=== PATIENT | female | born 1970 | race Caucasian/White ===

== ENCOUNTER 2018-03-12 10:29 | Emergency (ER) | payer OTHER ==
[2018-03-12 11:59] LABS: Absolute Lymphocytes (CBC) 1.7 K/uL (0.7-4.9); Absolute Neutrophil 17.1 K/uL (1.8-8.0); Basophils % 0.6 % (0-1.3); Hematocrit 40.6 % (36.0-45.0); Lymphocytes % 8.6 % (15.3-44.8); MCH 29.8 pg (27.0-35.0); MCV 87.1 fL (80-100); Monocytes % 4.9 % (3.3-12.3); RBC Red Blood Cell Count 4.66 M/uL (3.86-4.86)
[2018-03-12] MEDS ORDERED: NA CHLORIDE 0.9% 1,000 ML ONE (12:12)
[2018-03-12] MEDS ORDERED: MORPHINE 4 MG/ML SYR ONE (12:12)
[2018-03-12] MEDS ORDERED: ONDANSETRON 4 MG/2 ML VIAL ONE (12:12)
[2018-03-12 12:17] LABS: BUN Blood Urea Nitrogen 9 mg/dL (7-18); Bicarbonate 27 mmol/L (21-32); Glucose Level 95 mg/dL (74-106); Potassium 4.1 mmol/L (3.5-5.1); Sodium Level 138 mmol/L (136-145); Troponin (Emerg Dept Use Only) < 0.02 ng/mL (0.0-0.045)
[2018-03-12] MEDS ORDERED: CLINDAMYCIN 600MG/D5W 600 MG/50 ML BAG IV ONE (12:27)
[2018-03-12 12:31] LABS: Blood Morphology Comment NOT SEEN (NOT SEEN); Platelet Estimate INCR
[2018-03-12 12:41] LABS: Protime INR 1.06
--- NOTE | 2018-03-12 12:48 | RAD REPORT ---
EXAM DESCRIPTION: CT - Soft Tissue Neck W/Contr - 03/12/2018 12:34 pm CLINICAL HISTORY: Neck pain and neck swelling COMPARISON: None. TECHNIQUE: Computed axial tomography of the neck was obtained. 50 cc Isovue-300 administered intrave nously. Coronal and sagittal reconstruction was performed All CT scans are performed using dose optimization technique as appropriate and may include automated exposure control or mA/KV adjustment according to patient size. FINDINGS: The right tonsil is enlarged. Stranding is present within the right parapharyngeal fat. The oropharynx is mildly deviated towards the left. Remainder of the airway is unremarkable Mild bilateral lymphadenopathy is seen. The parotid, submandibular and thyroid glands demonstrate no significant abnormality. A 3 millimeter nodule within the right lobe of thyroid gland likely is benign. IMPRESSION: Right tonsillitis Bilateral neck lymphadenopathy probably is reactive in nature. Followup CT in 3 months should be obta ined to assess stability/resolution of the lymph nodes
[2018-03-12] MEDS ORDERED: LIDOCAINE VISCOUS 2% SOLN 15 ML UDC ONE (14:17)
[2018-03-12] MEDS ORDERED: MAGNE/ALUM HYDROXD 30 ML UCUP ONE (14:17)
[2018-03-12 14:27] LABS: Urine Bacteria NONE SEEN /HPF (<20); Urine RBC <5 /HPF (NONE SEEN)
[2018-03-12 14:28] LABS: Urine Culture Reflex Order NOT NEEDED; Urine Mucus LIGHT /HPF (NONE SEEN); Urine Yeast PRESENT (NONE SEEN)
--- NOTE | 2018-03-12 14:51 | EDPHYS ---
Physician Documentation [facility] Name: Nafisa Qiu Age: 47 yrs Sex: Female : 1970 Arrival Date: 03/12/2018 Time: 10:34 Bed 14 Private MD: Jung David T ED Physician Steffen Bateman HPI: 03/12 11:08 This 47 yrs old Female presents to ER via Ambulatory with complaints of Sore ma2 Throat, Fever. 11:08 The patient presents with sore throat. Onset: The symptoms/episode began/occurred ma2 gradually. Severity of symptoms: At their worst the symptoms were severe. Associated signs and symptoms: Pertinent positives: diarrhea, dysphagia, Pertinent negatives chest pain, chills, diarrhea, dysphagia. The patient has not experienced similar symptoms in the past. had strep pharyngitis last week almost completed keflex here with gradaly worsen sore throat that is more localized to right side.. with fever and neck pain . 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 - Social history:: Smoking status: Patient uses tobacco products, smokes one-half pack cigarettes per day, Patient/guardian denies using alcohol, street drugs, The patient lives with family. - Ebola Screening: : No symptoms or risks identified at this time. - Family history:: not pertinent. - Hospitalizations: : No recent hospitalization is reported. ROS: 11:08 Eyes: Negative for injury, pain, redness, and discharge, Neck: Negative for injury, ma2 pain, and swelling, Cardiovascular: Negative for chest pain, palpitations, and edema, Respiratory: Negative for shortness of breath, cough, wheezing, and pleuritic chest pain, Abdomen/GI: Negative for abdominal pain, nausea, diarrhea, and constipation, Neuro: Negative for headache, weakness, numbness, tingling, and seizure. 11:08 Constitutional: Positive for fever, Negative for chills, fatigue, poor PO intake. 11:08 ENT: Positive for sinus congestion, sore throat, Negative for drainage from ear(s), foreign body sensation. 11:08 All other systems are negative. Exam: 11:08 Constitutional: This is a well developed, well nourished patient who is awake, alert, ma2 and in no acute distress. Head/Face: Normocephalic, atraumatic. Chest/axilla: Normal chest wall appearance and motion. Nontender with no deformity. No lesions are appreciated. Cardiovascular: Regular rate and rhythm with a normal S1 and S2. No gallops, murmurs, or rubs. Normal PMI, no JVD. No pulse deficits. Respiratory: Lungs have equal breath sounds bilaterally, clear to auscultation and percussion. No rales, rhonchi or wheezes noted. No increased work of breathing, no retractions or nasal flaring. Abdomen/GI: Soft, non-tender, with normal bowel sounds. No distension or tympany. No guarding or rebound. No evidence of tenderness throughout. MS/ Extremity: Pulses equal, no cyanosis. Neurovascular intact. Full, normal range of motion. Neuro: Awake and alert, GCS 15, oriented to person, place, time, and situation. Cranial nerves II-XII grossly intact. Motor strength 5/5 in all extremities. Sensory grossly intact. Cerebellar exam normal. Normal gait. 11:08 ENT: External ear(s): are unremarkable, Ear canal(s): are normal, TM's: are normal, Examination of the other ear shows no obvious abnormality, Nose: is normal, Mouth: Posterior pharynx: Airway: normal, Tonsils: enlarged on the right, enlarged on the left, with erythema, with exudate, Uvula: deviated to left, swelling, that is moderate, exudate, that is mild, peritonsillar mass, is noted on the right. Vital Signs: 10:45 BP 143 / 99; Pulse 87; Resp 16 S; Temp 99.8(O); Pulse Ox 97% on R/A; Weight 128.37 kg jl7 (R); Height 5 ft. 7 in. (170.18 cm) (R); Pain 9/10; 12:29 BP 134 / 78; Pulse 88; Resp 20; Pulse Ox 99% on R/A; Pain 7/10; ls4 13:31 BP 129 / 70; Pulse 88; Resp 16; Temp 98.9(O); Pulse Ox 99% ; Pain 6/10; ls4 14:30 BP 128 / 70; Pulse 78; Resp 16; Pulse Ox 99% ; Pain 6/10; ls4 14:31 BP 126 / 74; Pulse 82; Temp 98.4(O); Pulse Ox 99% on R/A; Pain 3/10; ls4 10:45 Body Mass Index 44.32 (128.37 kg, 170.18 cm) jl7 MDM: 10:47 Patient medically screened. ma2 11:08 Differential diagnosis: tonsillitis, upper respiratory infection, viral syndrome right ma2 peritonsillar abscess. no lopez. 14:28 Data reviewed: vital signs, nurses notes. Data reviewed: EMS record, lab test ma2 result(s), radiologic studies, although WBC elevated she has no other component to qualify for SIRS and he symptoms resolved. Counseling: I had a detailed discussion with the patient and/or guardian regarding: the historical points, exam findings, and any diagnostic results supporting the discharge/admit diagnosis, the presence of at least one elevated blood pressure reading (>120/80) during this emergency department visit, the need for outpatient follow up. Response to treatment: the patient's symptoms have markedly improved after treatment. 03/12 10:51 Order name: Strep ls4 03/12 11:16 Order name: Basic Metabolic Panel pr2 03/12 11:16 Order name: CBC with Diff pr2 03/12 11:16 Order name: Protime (+inr) pr2 03/12 11:16 Order name: Ptt, Activated pr2 03/12 11:16 Order name: Troponin (emerg Dept Use Only) pr2 03/12 11:16 Order name: Urine Microscopic Only pr2 03/12 11:40 Order name: Group A Streptococcus Rapid Sc; Complete Time: 12:03 EDMS 03/12 12:01 Order name: CBC with Automated Diff; Complete Time: 13:33 EDMS 03/12 12:17 Order name: Basic Metabolic Panel; Complete Time: 13:33 EDMS 03/12 12:17 Order name: Troponin (Emerg Dept Use Only); Complete Time: 13:33 EDMS 03/12 12:31 Order name: Manual Differential; Complete Time: 13:33 EDMS 03/12 12:42 Order name: Protime (+INR); Complete Time: 13:33 EDMS 03/12 12:42 Order name: PTT, Activated Partial Thromb; Complete Time: 13:33 EDMS 03/12 11:16 Order name: IV Saline Lock - Large Bore; Complete Time: 11:25 pr2 03/12 11:16 Order name: Labs collected and sent; Complete Time: 11:25 [facility] 03/12 11:16 Order name: CT Soft Tissue Neck W/contr [facility] 03/12 12:48 Order name: CT; Complete Time: 13:33 EDMS 03/12 14:28 Order name: Urine Microscopic Only EDMS Administered Medications: 12:09 Drug: Zofran 4 mg Route: IVP; Site: left antecubital; ls4 12:39 Follow up: Response: No adverse reaction ls4 12:10 Drug: NS 0.9% (30 ml/kg) 30 ml/kg Route: IV; Rate: bolus; Site: left antecubital; ls4 14:31 Follow up: IV Status: Completed infusion; IV Intake: 1000ml ls4 12:10 Drug: morphine 4 mg Route: IVP; Site: left antecubital; ls4 13:06 Follow up: Response: No adverse reaction; Pain is decreased ls4 12:14 Not Given (Duplicate Order; other ): Augmentin 875 mg PO once ls4 12:47 Drug: Clindamycin 600 mg Route: IVPB; Infused Over: 30 mins; Site: left antecubital; ls4 13:05 Follow up: IV Status: Completed infusion; IV Intake: 50ml ls4 13:07 Not Given (Other Intervention Used): Acetaminophen 1000 mg PO once ls4 14:10 Drug: GI Cocktail without - (Maalox Suspension 30 ml, Lidocaine Liquid 2 % 15 ls4 ml) Route: PO; 14:23 Follow up: Response: No adverse reaction ls4 Disposition: 03/12/18 14:50 Discharged to Home. Impression: Streptococcal tonsillitis. - Condition is Stable. - Discharge Instructions: Tonsillitis. - Prescriptions for Lidocaine Viscous - take 5 milliliter by ORAL route 3 times per day for 4 days; 250 milliliter. Augmentin 875- 125 mg Oral Tablet - take 1 tablet by ORAL route every 12 hours for 10 days; 20 tablet. Tylenol- Codeine #3 300-30 mg Oral Tablet - take 2 tablet by ORAL route every 6 hours As needed; 30 tablet. Zithromax Z- Kranthi 250 mg Oral Tablet - take 1 tablet by ORAL route as directed for 5 days Day 1 - take two (2) tablets one time. Day 2, 3, 4 , 5 take one (1) tablet once daily.; 6 tablet. - Medication Reconciliation Form, Thank You Letter, Antibiotic Education, Prescription Opioid Use form. - Follow up: Private Physician; When: Tomorrow; Reason: Continuance of care. Signatures: Dispatcher [employer] EDMS Lorie Epperson RN RN jl7 Steffen Bateman MD MD ma2 Opal Abarca RN RN ls4 Corrections: (The following items were deleted from the chart) 15:09 14:50 03/12/2018 14:50 Discharged to Home. Impression: Streptococcal tonsillitis. ls4 Condition is Stable. Discharge Instructions: Tonsillitis. Prescriptions for Lidocaine Viscous - take 5 milliliter by ORAL route 3 times per day for 4 days; 250 milliliter, Augmentin 875-125 mg Oral Tablet - take 1 tablet by ORAL route every 12 hours for 10 days; 20 tablet, Tylenol-Codeine #3 300-30 mg Oral Tablet - take 2 tablet by ORAL route every 6 hours As needed; 30 tablet, Zithromax Z-Kranthi 250 mg Oral Tablet - take 1 tablet by ORAL route as directed for 5 days Day 1 - take two (2) tablets one time. Day 2, 3, 4 , 5 take one (1) tablet once daily.; 6 tablet. and Forms are Medication Reconciliation Form, Thank You Letter, Antibiotic Education, Prescription Opioid Use. Follow up: Private Physician; When: Tomorrow; Reason: Continuance of care. ma2
--- NOTE | 2018-03-12 14:51 | ER ---
Nurse's Notes [facility] Name: Nafisa Qiu Age: 47 yrs Sex: Female : 1970 Arrival Date: 03/12/2018 Time: 10:34 Bed 14 Private MD: Jung David T Diagnosis: Streptococcal tonsillitis Presentation: 03/12 10:42 Presenting complaint: Patient states: Tested positive for flu and strep last week, took jl7 Tamiflu and antibiotics and got better, then last night sore throat, right ear pain and fever came back last night. Transition of care: patient was not received from another setting of care. Onset of symptoms was March 11, 2018. Risk Assessment: Do you want to hurt yourself or someone else? Patient reports no desire to harm self or others. Initial Sepsis Screen: Does the patient meet any 2 criteria? No. Patient's initial sepsis screen is negative. Does the patient have a suspected source of infection? No. Patient's initial sepsis screen is negative. Care prior to arrival: None. 10:42 Method Of Arrival: Ambulatory [facility] 10:42 Acuity: DEVANTE 4 jl7 Triage Assessment: 10:53 General: Appears distressed, uncomfortable, Behavior is cooperative. Pain: Complains of ls4 pain in right aspect of posterior pharynx. EENT: Throat is reddened on right. Neuro: No deficits noted. Respiratory: No deficits noted. Musculoskeletal: No deficits noted. 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 - Social history:: Smoking status: Patient uses tobacco products, smokes one-half pack cigarettes per day, Patient/guardian denies using alcohol, street drugs, The patient lives with family. - Ebola Screening: : No symptoms or risks identified at this time. - Family history:: not pertinent. - Hospitalizations: : No recent hospitalization is reported. Screenin:29 Abuse screen: Denies threats or abuse. Nutritional screening: No deficits noted. ls4 Tuberculosis screening: No symptoms or risk factors identified. Fall Risk None identified. Assessment: 10:50 General: Appears distressed, uncomfortable, obese, Behavior is anxious, crying, fussy. ls4 Pain: Complains of pain in right aspect of posterior pharynx and mouth Pain currently is 10 out of 10 on a pain scale. Neuro: No deficits noted. Cardiovascular: No deficits noted. Respiratory: Airway is patent Trachea midline Respiratory effort is even, unlabored, Respiratory pattern is regular, Breath sounds are clear bilaterally. EENT: Throat is reddened has enlarged tonsils on right Reports pain in right aspect of posterior pharynx since last night. Musculoskeletal: No deficits noted. 11:15 Reassessment: No changes from previously documented assessment. Patient and/or family ls4 updated on plan of care and expected duration. Pain level reassessed. 12:15 Reassessment: Patient and/or family updated on plan of care and expected duration. Pain ls4 level reassessed. Patient states symptoms have improved. 13:18 Reassessment: No changes from previously documented assessment. Patient and/or family ls4 updated on plan of care and expected duration. Pain level reassessed. 14:22 Reassessment: Patient and/or family updated on plan of care and expected duration. Pain ls4 level reassessed. Patient states feeling better. Patient states symptoms have improved. Vital Signs: 10:45 BP 143 / 99; Pulse 87; Resp 16 S; Temp 99.8(O); Pulse Ox 97% on R/A; Weight 128.37 kg 7 (R); Height 5 ft. 7 in. (170.18 cm) (R); Pain 9/10; 12:29 BP 134 / 78; Pulse 88; Resp 20; Pulse Ox 99% on R/A; Pain 7/10; ls4 13:31 BP 129 / 70; Pulse 88; Resp 16; Temp 98.9(O); Pulse Ox 99% ; Pain 6/10; ls4 14:30 BP 128 / 70; Pulse 78; Resp 16; Pulse Ox 99% ; Pain 6/10; ls4 14:31 BP 126 / 74; Pulse 82; Temp 98.4(O); Pulse Ox 99% on R/A; Pain 3/10; ls4 10:45 Body Mass Index 44.32 (128.37 kg, 170.18 cm) [facility] ED Course: 10:34 Patient arrived in ED. mr 10:34 Jung David MD is Private Physician. mr 10:43 Triage completed. jl7 10:45 Arm band placed on right wrist. jl7 10:47 Steffen Bateman MD is Attending Physician. ma2 10:52 Opal Abarca, ALEJA is Primary Nurse. ls4 11:29 Initial lab(s) drawn, by me, sent to lab. Inserted saline lock: 22 gauge in left jb1 antecubital area, using aseptic technique. Blood collected. 11:48 Radiology exam delayed due to lab results not completed at this time. (BUN/Creatinine). kw1 12:10 Basic Metabolic Panel Sent. ls4 12:10 CBC with Diff Sent. ls4 12:10 Protime (+inr) Sent. ls4 12:10 Ptt, Activated Sent. ls4 12:10 Troponin (emerg Dept Use Only) Sent. ls4 12:29 Patient has correct armband on for positive identification. Allergy band placed. Placed ls4 in gown. Bed in low position. Call light in reach. Side rails up X 1. Warm blanket given. Pillow given. 12:[address] via wheelchair. vm2 12:31 CT completed. Patient tolerated procedure well. Patient moved back from CT. vm2 14:31 Urine Microscopic Only Sent. ls4 14:31 Strep Sent. ls4 15:08 No provider procedures requiring assistance completed. IV discontinued, intact, ls4 bleeding controlled, No redness/swelling at site. Pressure dressing applied. Administered Medications: 12:09 Drug: Zofran 4 mg Route: IVP; Site: left antecubital; ls4 12:39 Follow up: Response: No adverse reaction ls4 12:10 Drug: NS 0.9% (30 ml/kg) 30 ml/kg Route: IV; Rate: bolus; Site: left antecubital; ls4 14:31 Follow up: IV Status: Completed infusion; IV Intake: 1000ml ls4 12:10 Drug: morphine 4 mg Route: IVP; Site: left antecubital; ls4 13:06 Follow up: Response: No adverse reaction; Pain is decreased ls4 12:14 Not Given (Duplicate Order; other ): Augmentin 875 mg PO once ls4 12:47 Drug: Clindamycin 600 mg Route: IVPB; Infused Over: 30 mins; Site: left antecubital; ls4 13:05 Follow up: IV Status: Completed infusion; IV Intake: 50ml ls4 13:07 Not Given (Other Intervention Used): Acetaminophen 1000 mg PO once ls4 14:10 Drug: GI Cocktail without - (Maalox Suspension 30 ml, Lidocaine Liquid 2 % 15 ls4 ml) Route: PO; 14:23 Follow up: Response: No adverse reaction ls4 Intake: 13:05 IV: 50ml; Total: 50ml. ls4 14:31 IV: 1000ml; Total: 1050ml. ls4 Outcome: 14:50 Discharge ordered by . ma2 15:08 Discharged to home ambulatory, with family. ls4 15:08 Condition: stable 15:08 Discharge instructions given to patient, family, Instructed on discharge instructions, follow up and referral plans. the need for admit, the need for transfer, Demonstrated understanding of instructions, follow-up care, medications, Prescriptions given X 4. 15:09 Patient left the ED. ls4 Signatures: Ferdinand Mcdowell1 Nga Gross Jahala, RN RN jl7 Sharla Nicolas 2 Jacquelin Davenport 1 Steffen Bateman MD MD ma2 Opal Abarca, RN RN ls4
[2018-03-12 15:19] VITALS: TEMP 99.8
[2018-03-12 15:20] VITALS: BP 134/78; O2SAT 99
== END 2018-03-12 15:09 | disposition home or self-care (01) ==
LOC: ER 10:29
DX: J03.00 Acute streptococcal tonsillitis, unspecified (principal); F17.210 Nicotine dependence, cigarettes, uncomplicated
CPT/HCPCS: 36415; 70491; 80048; 81015; 84484; 85025; 85610; 85730; 87081; 96361; 96365; 96375; 99284; J2405; J7030; Q9967

== ENCOUNTER 2018-11-12 06:18 | Day surgery (SDC) | payer OTHER ==
--- OUTSIDE RECORDS SUMMARY | 2018-11-12 06:21 | XMS REPORT | Continuity of Care Document ---
:1970 Author Organization [facility] Address [address] [place] [address] Phone Unavailable Care Team Providers Name Role Phone KE MATTHEWS Primary Care Physician Insurance Providers Guarantor Nafisa Luis Address [address] [place] [address] Email NONE Payer [employer] Policy Number [id number] Subscriber's Name Nafisa Luis Relationship Self / Same As Patient Group Number [id number] Group Name [id number] Advance Directives Directive Response Recorded Date/Time Name of Surrogate/Decision Maker NA 08/03/18 1:43pm Patient/Family Given Education Material R/T Y - 08-03-18...MP 08/03/18 1: 43pm Directives? Chief Complaint and Reason for Visit Chief Complaint General Complaint Reason for Visit [id number] Back pain Problems Active ProblemsNo active problem information available. Past Problems Medical Problem Onset Date Status Back pain Unknown Acute Bulging lumbar disc Unknown Acute Medications Current Home Medications Medication Dose Units Route Directions Days Qty Instructions Start Date Acetamin/Codeine 1 Tab ORAL Every 4 Hours 15 Tablet 08/03/18 300/30 Mg * As Needed as (Tylenol With needed for Codeine #3 300/30 Mg *) 300/30 Mg Tab Cyclobenzaprine 1 Tab ORAL Three Times A 10 Days 30 Tablet 08/03/18 Hcl (Flexeril *) Day for 10 Mg Tab Muscle Spasms Naproxen (Naprosyn 1 Tab ORAL Twice A Day 30 Days 60 Tablet 08/03/18 500 Mg*) 500 Mg for Pain Tab Social History Social History Problem Response Recorded Date/Time Onset Date Status Hx Physical Abuse No 08/03/2018 1:35pm Not Applicable Not Applicable Smoking Status Start Date Stop Date Current every day smoker Hospital Discharge Instructions No hospital discharge instruction information available. Plan of Care Discharge Date 08/03/18 4:23pm Instructions/Education Provided Back Pain, Adult Forms Provided Prescription Opioid Use Portal Welcome Letter Prescriptions See Medication Section Referrals [facility]ccord Address: [address] [place] [id number] Additional Instructions/Education DIAGNOSIS: BACK PAIN, BULGING DISC PRESCRIPTIONS: TYLENOL #3, FLEXERIL, NAPROSYN FOLLOW UP: WITH PRIMARY CARE OR SPINAL ORTHOPEDIC IN 2 DAYS * RETURN TO EMERGENCY DEPARTMENT FOR ANY CHANGE IN CONDITION OR WORSENING* INSTRUCTIONS: DRINK PLENTY OF FLUIDS ICE PACKS AND WARM COMPRESSES ALTERNATING NO HEAVY LIFTING Functional Status No functional status information available. Allergies, Adverse Reactions, Alerts Allergen Type Severity Reaction Status Last Updated Tramadol Adverse Reaction Intermediate MENTAL STATUS Active 08/03/18 ([id number]) CHANGE Immunizations No immunization information available. Vital Signs Acute Vital Signs Vital Response Date/Time Blood Pressure 132/62 mm Hg 08/03/2018 4:22pm Pulse Pulse Rate (adult) 80 beats per minute (60 - 100) 08/03/2018 4:22pm Respiratory Rate 17 breaths per minute (10 - 24) 08/03/2018 4:22pm Temperature Source Oral 08/03/2018 4:22pm Height 5 ft 7 in 08/03/2018 1:35pm Weight 270 lb 08/03/2018 1:35pm Body Mass Index 42.3 kg/m^2 08/03/2018 1:35pm Results No relevant diagnostic test, laboratory data and/or discharge summary information available. 

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
--- OUTSIDE RECORDS SUMMARY | 2018-11-12 06:21 | XMS REPORT ---
:1970 [facility] Aleksandr Lee [address] [place] [address] Care Team Providers Name Role Phone Unavailable Unavailable Unavailable Problems This patient has no known problems. Allergies, Adverse Reactions, Alerts This patient has no known allergies or adverse reactions. Medications This patient has no known medications.
[2018-11-12] MEDS ORDERED: Ringers Lactate 1,000 ML IV ONE (07:01)
[2018-11-12] MEDS ORDERED: PROPOFOL 200 MG/20 ML VIAL IV ONE (07:04)
[2018-11-12] MEDS ORDERED: FENTANYL CITR 100 MCG/2 ML ONE ×2 (07:05→07:57)
[2018-11-12] MEDS ORDERED: MIDAZOLAM HCL 2 MG/2 ML INJ ONE (07:05)
[2018-11-12] MEDS ORDERED: GLYCOPYRROLATE 0.2 MG/ML SYR ONE (07:06)
[2018-11-12] MEDS ORDERED: dexAMETHasone 10 MG/ML VIAL ONE (07:07)
[2018-11-12] MEDS ORDERED: ROCURONIUM 50 MG/5 ML VIAL IV ONE (07:08)
[2018-11-12] MEDS ORDERED: LIDOCAINE 2% MPF 5 ML VIAL ONE (07:08)
[2018-11-12] MEDS ORDERED: ONDANSETRON 4 MG/2 ML VIAL ONE (07:10)
[2018-11-12] MEDS: BUPIVACA 0.5%/EPI 0.0005%/PF 30 ML VIAL ONE ×6 (07:12→08:12)
[2018-11-12] MEDS ORDERED: NEOSTIGMINE 1 MG/ML -10 ML VIAL ONE (08:12)
--- NOTE | 2018-11-12 08:19 | P.OP ---
Pre-Op Diagnosis: Chronic tonsillitis Post-Op Diagnosis: Chronic tonsillitis Procedure: Tonsillectomy Anesthesia: Other (GA via ETT) Fluids/ Blood products: Other (650ml crystalloid) Estimated blood loss: Other (10ml) Specimen: Other (bilateral tonsils) Findings: multiple microabscesses Complications: None Implants: None Indication: Patient persistent issues in spite of good medical management. Details of Operation: The patient was brought to the operating room and placed under general anesthesia via endotracheal tube. The head of bed was turned 90 degrees. A Shoulder roll was placed and the neck extended. A head drape was applied. The McIvor mouth gag was placed and suspended from the Guadalupe stand. The oxygen concentrate was confirmed with the infectious diseases physician and was less than forty percent. Weight-based dexamethasone was administered by the infectious diseases physician. The soft palate was palpated and there was no submucous cleft. A red rubber catheter was placed in the nose and secured to retract the soft palate. The tonsils were noted to be deeply cryptic, chronically inflammed and scarred. The left tonsil was grasped with a straight Allis clamp. The bovie electocautery was used to incision the mucosa over the anterior pillar and identify the tonsillar capsule. The tonsil was dissected using cautery and blunt dissection until free from soft tissue attachments. A tonsil ball was placed to aid hemostasis. The right tonsil was removed in a similar manner. Hemostasis was achieved using packing and cautery as needed. Blood loss was minimal. All packing was removed. The tonsillar fossae were injected with 0.5% Marcaine with epinephrine. A total of 3 mL was used. A Salum sump orogastric tube was used to decompress the stomach. The red rubber catheter was removed and used to suction the nasopharynx and nasal cavity. The mouth gag was removed; there was no evidence of injury to the lips, teeth or tongue. The mandible was mobile. Disposition: The patient was then awakened from anesthesia and taken to the recovery room in stable condition.
[2018-11-12] MEDS: MEPERIDINE HCL 50 MG/ML AMP ONE ×3 (08:47→09:06)
[2018-11-12 09:02] VITALS: O2SAT 93
[2018-11-12] MEDS ORDERED: HYDROCOD 2.5mg-ACETAMIN 108mg/5mL Soln ONE (10:18)
--- NOTE | 2018-11-12 10:40 | EKG ---
Test Date: 2018-11-11 Test Time: 15:56:11 Timers Inspector: JOSE MARIA MEASUREMENT RESULTS: Intervals: Rate: 81 PA: 138 QRSD: 96 QT: 362 QTc: 420 Larose: P: 44 PA: 138 QRS: 18 T: 17 INTERPRETIVE STATEMENTS: Normal sinus rhythm Normal ECG Compared to ECG 01/16/2014 08:58:11 No significant changes Electronically Signed On 11-12-18 10:38:29 CDT by Edis Mendes
[2018-11-12 11:05] VITALS: BP 129/83; TEMP 97.4
== END 2018-11-12 11:02 | disposition home or self-care (01) ==
LOC: OR 06:18
PROVIDERS: ATTEND Otolaryngology
PROC: 0CTPXZZ Resection of Tonsils, External Approach (ICD-10-PCS; principal; 2018-11-12 07:30)
DX: J35.01 Chronic tonsillitis (principal); E03.9 Hypothyroidism, unspecified; G47.30 Sleep apnea, unspecified; F41.9 Anxiety disorder, unspecified; F32.9 Major depressive disorder, single episode, unspecified; F98.8 Other specified behavioral and emotional disorders with onset usually occurring in childhood and adolescence
CPT/HCPCS: 88304; 93005; J1100; J2175; J2250; J2405; J2704; J2710; J3010

== ENCOUNTER 2018-11-16 00:42 | Observation (INO) | payer OTHER ==
--- OUTSIDE RECORDS SUMMARY | 2018-11-16 00:44 | XMS REPORT ---
:1970 [facility] Address [facility]3 Aleksandr Lee [address] [place] [id number] Care Team Providers Name Role Phone Unavailable Unavailable Unavailable Problems This patient has no known problems. Allergies, Adverse Reactions, Alerts This patient has no known allergies or adverse reactions. Medications This patient has no known medications.
[2018-11-16] MEDS ORDERED: Ringers Lactate 1,000 ML IV ONE (01:06)
[2018-11-16] MEDS: BUPIVACA 0.5%/EPI 0.0005%/PF 10 ML VIAL ONE ×2 (01:08→01:25)
[2018-11-16] MEDS ORDERED: MIDAZOLAM HCL 2 MG/2 ML INJ ONE (01:16)
[2018-11-16] MEDS ORDERED: FENTANYL CITR 100 MCG/2 ML ONE (01:16)
[2018-11-16] MEDS ORDERED: GLYCOPYRROLATE 0.2 MG/ML SYR ONE (01:16)
[2018-11-16] MEDS ORDERED: PROPOFOL 200 MG/20 ML VIAL IV ONE (01:16)
[2018-11-16] MEDS ORDERED: NEOSTIGMINE 1 MG/ML -10 ML VIAL ONE (01:17)
[2018-11-16] MEDS ORDERED: ROCURONIUM 50 MG/5 ML VIAL IV ONE (01:17)
[2018-11-16] MEDS ORDERED: LIDOCAINE 1% MPF 5 ML VIAL ONE (01:17)
[2018-11-16] MEDS ORDERED: ONDANSETRON 4 MG/2 ML VIAL ONE (01:17)
[2018-11-16] MEDS ORDERED: ONDANSETRON 4 MG/2 ML VIAL IV PRN (01:34)
[2018-11-16] MEDS ORDERED: EPINEPHRINE/PF 1 MG/ML AMP ONE (01:41)
[2018-11-16] MEDS ORDERED: D5 0.45 NS 1,000 ML IV SCH (02:00)
[2018-11-16] MEDS: HYDROMORPHONE HCL 1 MG/ML INJ ONE ×2 (02:07→02:15)
[2018-11-16] MEDS ORDERED: HYDROCOD 2.5mg-ACETAMIN 108mg/5mL Soln PO PRN (02:18)
[2018-11-16 02:26] VITALS: TEMP 97.2
[2018-11-16 02:51] VITALS: BMI 42.3
[2018-11-16 03:29] LABS: Absolute Lymphocytes (CBC) 1.8 K/uL (0.7-4.9); Basophils % 0.8 % (0-1.3); Lymphocytes % 16.2 % (15.3-44.8); MPV 8.3 fL (7.6-11.3); RBC Red Blood Cell Count 4.23 M/uL (3.86-4.86)
[2018-11-16 03:32] VITALS: O2SAT 97
[2018-11-16 08:54] VITALS: BP 108/60
--- NOTE | 2018-11-17 04:35 | SS ---
Date of Discharge: 11/16/2018 Admission Diagnosis: Oropharyngeal hemorrhage secondary to tonsillectomy. Discharge Diagnosis: Oropharyngeal hemorrhage secondary to tonsillectomy. Hospital Course: Patient presented to the emergency room at approximately 12:30 a.m. She was noted to have moderate bleeding from the oropharynx and decision was made to proceed with operative interve ntion. The patient underwent control of oropharyngeal hemorrhage under general anesthesia with rob davis operative intervention without complication. After the procedure, she was placed under observat ion with IV hydration and clear liquid diet. On the morning of discharge, she was tolerating clear l iquids and urinating without difficulty. Her pain was moderately controlled. Her throat appeared as expected following postoperative tonsillectomy, eschar with no further blood or clot noted. Disposition: To home in the care of her spouse. Discharge Diet: Liquid and soft foods as tolerated. Activity: No heavy lifting. Discharge Instructions: Patient may resume CPAP as tolerated. She is instructed to contact Dr. Herr duque for any further bleeding. KIRA/BLAKE Voice ID: [id number] Report ID: [id number]
--- NOTE | 2018-11-18 00:09 | OP ---
Date of Procedure: 11/16/2018 Surgeon: Riddhi Kilgore MD Preoperative Diagnosis: Oropharyngeal hemorrhage secondary to tonsillectomy. Postoperative Diagnosis: Oropharyngeal hemorrhage secondary to tonsillectomy. Procedures: Exam under anesthesia and control of oropharyngeal hemorrhage with secondary surgical intervention. Indication For Procedure: Ms. Qiu presented on postop day 3 following her tonsillectomy coughing up a small amount of blood. At the time on early Sunday morning, the bleeding stopped spontaneously. There was a scant streak of blood in the lower right tonsillar fossa, but no evidence of clot or active bleeding. The patient was given options and elected for discharge with observation at home. At approximately midnight, she awoke with coughing up moderate to large amounts of blood and contacted the ENT on-call and was instructed to come immediately to the emergency room. On evaluation, she was noted to have a bag containing approximately 150 cc of blood and secretions and due to bleeding, the decision was made to proceed with operative intervention. Description Of Procedure: The patient was brought to the operating room. She was placed under general anesthesia via oral endotracheal tube. The head of bed was turned 90 degrees. A shoulder roll was placed and the neck was extended. A head drape was applied and the McIvor mouth gag was used to provide exposure to the oropharynx. A red rubber catheter was passed through the nose and withdrawn through the mouth and secured to the head drape for suspension of the soft palate. There was no active bleeding on initial evaluation. Eschar and debris were carefully suctioned from the left tonsillar fossa. There was no evidence of blood or bleeding or clot in this area. There was a small, approximately 5 mm laceration on the posterior pharyngeal wall adjacent to the right posterior pillar. This area was suctioned and felt to be likely due to intubation trauma. Bleeding from this area was minimal. There was irritation and mild to scant fresh blood along the posterior pillar superiorly adjacent to the uvula. This area was carefully suctioned, but no active bleeding was found. Additional eschar was suctioned from the tonsillar fossa. In the inferior aspect of the right tonsillar fossa, there was a very small, about approximately 1 mm clot. This area was gently suctioned and after removal of this small clot, there was brisk bleeding noted from this area. Direct pressure was applied with a tonsil sponge and a second tonsil sponge was soaked with 1:100,000 units epinephrine total of 1 mL, was applied to the tonsil sponge. The epinephrine-soaked tonsil sponge was then applied to the bleeding site for approximately 5 minutes. After removal, the bleeding was significantly slowed to an ooze and this small vessel was cauterized using suction cautery. Bleeding was then noted to be completely stopped. The red rubber catheter and mouth gag were gently released to release tension on the oropharyngeal tissues. There was no additional bleeding noted. The mouth gag was then placed back into suspension and an orogastric tube was passed to the stomach. Small amount of blood and gastric secretions were removed from the stomach. The orogastric tube was then removed. The red rubber catheter was used to suction the nasopharynx and nasal cavity. McIvor was then released and carefully removed and the patient was returned to care of anesthesia for awakening extubation, which proceeded without difficulty. Estimated Blood Loss: Less than 20 mL. Disposition: Due to patient's overall condition, she will be placed under observation overnight for hydration, pain control, and close observation for recurrent bleeding and if doing well, will likely discharge the patient to home. JULIO Voice ID: [id number] Report ID: [id number] PATT
== END 2018-11-16 11:23 | disposition home or self-care (01) ==
LOC: OR 00:42 → 4TH 01:26
PROVIDERS: ADMIT Otolaryngology; ATTEND Otolaryngology
PROC: 0W33XZZ Control Bleeding in Oral Cavity and Throat, External Approach (ICD-10-PCS; principal; 2018-11-16 01:05)
DX: J95.830 Postprocedural hemorrhage of a respiratory system organ or structure following a respiratory system procedure (principal); G47.33 Obstructive sleep apnea (adult) (pediatric); F41.9 Anxiety disorder, unspecified
CPT/HCPCS: 36415; 85025; 85730; 86850; 86900; 86901; 94660; 94760; G0378; J0171; J1170; J2250; J2405; J2704; J2710; J3010

== ENCOUNTER 2022-01-04 13:57 | Emergency (ER) | payer BC, OTHER ==
--- OUTSIDE RECORDS SUMMARY | 2022-01-04 14:00 | XMS REPORT | Continuity of Care Document ---
:1970 Author Organization [facility] t Address [address] [place] [address] Care Team Providers Name Role Phone Eda Arthur Attending Clinician Unavailable JASPREET Attending Clinician Unavailable CHANTEL_Percy Attending Clinician Unavailable Opal Golden Attending Clinician [phone] WATERS_S Admitting Clinician Unavailable CHANTEL_L Admitting Clinician Unavailable Payers Payer Name Policy Type Policy Number Effective Date Expiration Date S ource Problems This patient has no known problems. Allergies, Adverse Reactions, Alerts This patient has no known allergies or adverse reactions. Medications This patient has no known medications. Procedures This patient has no known procedures. Encounters Start End Encounter Admission Attending Care Care Encounter Source Date/Time Date/Time Type Type Clinicians Facility Department ID 2021-07-07 Outpatient REA Arthur [facility] [id number] Common 10:37:01 Eda [facility] 2021-05-30 Outpatient REA Arthur [facility] [id number] Common 11:08:02 Eda [facility] 2021-05-19 [facility] [id number] Common 07:24:00 Eda [facility] 2021-05-18 Outpatient REA Arthur [facility] [id number] Common 14:59:02 Eda [facility] 2021-05-04 2021-05-04 Outpatient WATERS_S [facility] [id number] [place] 02:45:00 02:45:00 [facility] 2020-11-30 2020-11-30 Outpatient [facility] [id number] [place] 05:03:00 05:03:00 _L [facility] 2020-11-30 2020-11-30 Outpatient [facility] [id number] 00:00:00 00:00:00 , Opal [id number] Re [id number] Results This patient has no known results.
[2022-01-04] MEDS ORDERED: LIDOCAINE VISCOUS 2% SOLN 15 ML UDC ONE (16:24)
[2022-01-04] MEDS ORDERED: MAGNES/ALUMIN/SIMET 30ML UCUP ONE (16:24)
[2022-01-04 16:48] LABS: Absolute Lymphocytes (CBC) 2.3 K/uL (0.7-4.9); Hematocrit 39.1 % (36.0-45.0); Lymphocytes % 22.6 % (15.3-44.8); MCV 86.2 fL (80-100); RBC Red Blood Cell Count 4.54 M/uL (3.86-4.86)
[2022-01-04 17:00] LABS: Albumin 3.4 g/dL (3.4-5.0); Bilirubin Total 0.3 mg/dL (0.2-1.0); Potassium 3.6 mmol/L (3.5-5.1); Protein, Total 7.1 g/dL (6.4-8.2); Troponin High Sensitivity 4.4 pg/mL (<58.9)
--- NOTE | 2022-01-04 18:05 | ER ---
Nurse's Notes [facility] Name: Nafisa Doyle Age: 51 yrs Sex: Female : 1970 Arrival Date: 01/04/2022 Time: 14:02 Bed 23 Private MD: Nate Lopez Diagnosis: Gastro-esophageal reflux disease without esophagitis Presentation: 01/04 16:09 Chief complaint:. vg1 16:17 Chief complaint: Patient states: Acid reflux since September 2021, became worse after vg1 parathyroid sx in October. Also states N/V. Coronavirus screen: Vaccine status: Patient reports being unvaccinated. Client denies travel out of the [place] in the last 14 days. Ebola Screen: Patient denies exposure to infectious person. Patient denies travel to an Ebola-affected area in the 21 days before illness onset. Initial Sepsis Screen: Does the patient meet any 2 criteria? No. Patient's initial sepsis screen is negative. Does the patient have a suspected source of infection? No. Patient's initial sepsis screen is negative. Risk Assessment: Do you want to hurt yourself or someone else? Patient reports no desire to harm self or others. Onset of symptoms was September 2021. 16:17 Method Of Arrival: Ambulatory vg1 16:17 Acuity: DEVANTE 3 vg1 Triage Assessment: 16:20 General: Appears uncomfortable, Behavior is calm, cooperative. Pain: Complains of pain vg1 in abdomen. GI: Reports nausea, vomiting, acid reflux. :. PATCH SANDER: 18:25 LMP N/A - Post-menopause kb3 Historical: - Allergies: 16:20 Pineapple; vg1 16:20 tramadol; vg1 16:20 Trazodone; vg1 - Home Meds: 16:20 Tums Oral [Active]; Pepto-Bismol Oral [Active]; Nexium Oral [Active]; Omeprazole Oral vg1 [Active]; cimetidine oral [Active]; - PMHx: 16:20 ADD/ADHD; Anxiety; Depression; Hypothyroidism; Angina pectoris; vg1 - Immunization history:: Client reports receiving the 2nd dose of the Covid vaccine. - Social history:: Smoking status: Reported history of juuling and/or vaping. Screenin:07 Abuse screen: Denies threats or abuse. Denies injuries from another. Nutritional kb3 screening: No deficits noted. Tuberculosis screening: No symptoms or risk factors identified. Fall Risk None identified. Assessment: 18:03 General: Pt refusing EKG, reports that she knows the problem is with her gastric band kb3 and she just wants to have it removed. . 18:07 General: Received pt from alexandra for EKG, meds and discharge. Ana SQUARE SHEAR OPERATOR in room to 3 speak with pt.. Vital Signs: 16:17 BP 151 / 89; Pulse 69; Resp 16; Temp 97.7(TE); Pulse Ox 100% on R/A; Weight 129.27 kg; vg1 Height 5 ft. 6 in. (167.64 cm); Pain 8/10; 16:17 Body Mass Index 46.00 (129.27 kg, 167.64 cm) vg1 ED Course: 14:02 Patient arrived in ED. rg4 14:02 Nate Lopez DO is Private Physician. rg4 16:15 [facility] Mustafa [facility]NP-C [facility] kb 16:15 Alexis Betancourt MD is Attending Physician. kb 16:20 Triage completed. vg1 16:20 Arm band placed on. vg1 16:36 Inserted saline lock: 20 gauge in right antecubital area, using aseptic technique. tp1 Blood collected. 18:03 Yanira Matamoros, RN is Primary Nurse. kb3 18:07 Patient has correct armband on for positive identification. kb3 18:22 No provider procedures requiring assistance completed. IV discontinued, intact, kb3 bleeding controlled, No redness/swelling at site. Administered Medications: 16:17 Drug: GI Cocktail without - (Maalox Suspension 30 ml, Lidocaine Liquid 2 % 15 vg1 ml) Route: PO; 18:00 Follow up: Response: No adverse reaction kb3 18:15 Drug: ProTONIX (pantoprazole) 40 mg Route: IVP; Site: right antecubital; kb3 18:26 Follow up: Response: No adverse reaction kb3 Medication: 18:07 VIS not applicable for this client. kb3 Outcome: 18:05 Discharge ordered by . kb 18:26 Discharged to home ambulatory, with family. kb3 18:26 Condition: stable 18:26 Discharge instructions given to patient, Instructed on discharge instructions, follow up and referral plans. medication usage, Demonstrated understanding of instructions, follow-up care, medications, Prescriptions given X 1. 18:26 Patient left the ED. kb3 Signatures: Ana Mustafa, TERRELL ROGERS-Ana Perdomo4 Sharla Kramer, RN RN vg1 Maya Clark, RN RN tp1 Yanira Matamoros RN RN kb3 Corrections: (The following items were deleted from the chart) 16:22 16:20 PMHx: Sleep Apnea; vg1 vg1 18:25 18:03 General: Pt refusing EKG, states they know what the problem is. kb3 kb3
--- NOTE | 2022-01-04 18:06 | EDPHYS ---
Physician Documentation [facility] Name: Nafisa Doyle Age: 51 yrs Sex: Female : 1970 Arrival Date: 01/04/2022 Time: 14:02 Bed 23 Private MD: Nate Lopez ED Physician Alexis Betancourt HPI: 01/05 00:18 This 51 yrs old Female presents to ER via Ambulatory with complaints of Acid Reflux. kb 00:18 The patient presents to the emergency department with nausea, vomiting. Onset: The kb symptoms/episode began/occurred 3 month(s) ago, and became worse 2 month(s) ago. Possible causes: GERD. The symptoms are aggravated by nothing. The symptoms are alleviated by nothing. Associated signs and symptoms: Pertinent positives: nausea, vomiting, gerd. Severity of symptoms: At their worst the symptoms were moderate in the emergency department the symptoms are unchanged. The patient has not experienced similar symptoms in the past. The patient has been recently seen by a physician: the patient's primary care provider. Patient reports acid reflux has been going on for a long time. States she had her parathyroid removed in October and the acid reflux has been worse since then. Reports it awakens her at night causing nausea and vomiting. Has been to her PCP for this and has appointments with GI at [facility] and [facility] but the earliest appointment available was February 03. States she is on waiting list for both of them if they have a cancellation. Patient has been taking multiple antacids without relief.. 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 - Social history:: Smoking status: Reported history of juuling and/or vaping. ROS: 01/05 00:18 Constitutional: Negative for fever, chills, and weight loss. kb Abdomen/GI: Positive for nausea and vomiting, GERD. All other systems are negative. Exam: 00:18 Constitutional: This is a well developed, well nourished patient who is awake, alert, kb and in no acute distress. Head/Face: Normocephalic, atraumatic. ENT: Moist Mucous membranes Cardiovascular: Regular rate and rhythm with a normal S1 and S2. No gallops, murmurs, or rubs. No pulse deficits. Respiratory: Respirations even and unlabored. No increased work of breathing. Talking in full sentences Abdomen/GI: Soft, non-tender. No distention Skin: Warm, dry with normal turgor. Normal color. MS/ Extremity: Pulses equal, no cyanosis. Neurovascular intact. Full, normal range of motion. Neuro: Awake and alert, GCS 15, oriented to person, place, time, and situation. Moves all extremities. Normal gait. Psych: Awake, alert, with orientation to person, place and time. Behavior, mood, and affect are within normal limits. Vital Signs: 01/04 16:17 BP 151 / 89; Pulse 69; Resp 16; Temp 97.7(TE); Pulse Ox 100% on R/A; Weight 129.27 kg; vg1 Height 5 ft. 6 in. (167.64 cm); Pain 8/10; 16:17 Body Mass Index 46.00 (129.27 kg, 167.64 cm) vg1 MDM: 16:15 Patient medically screened. kb 01/05 00:17 Data reviewed: vital signs, nurses notes. Data interpreted: Pulse oximetry: on room air kb is 100 %. Interpretation: normal. 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 ED course: Pt refuses EKG. States she googled her symptoms and believes her gastric band has slipped so she will follow up . 01/04 16:15 Order name: CBC with Diff; Complete Time: 17:08 kb 01/04 16: Order name: CMP; Complete Time: 17:08 kb 01/04 16:15 Order name: Lipase; Complete Time: 17:08 kb 01/04 16:15 Order name: Troponin HS; Complete Time: 17:08 kb 01/04 16:15 Order name: IV Saline Lock; Complete Time: 18:23 kb 01/04 16:15 Order name: Labs collected and sent; Complete Time: 18:23 kb 01/04 16:15 Order name: EKG; Complete Time: 16:16 kb Administered Medications: 01/04 16:17 Drug: GI Cocktail without - (Maalox Suspension 30 ml, Lidocaine Liquid 2 % 15 vg1 ml) Route: PO; 18:00 Follow up: Response: No adverse reaction kb3 18:15 Drug: ProTONIX (pantoprazole) 40 mg Route: IVP; Site: right antecubital; kb3 18:26 Follow up: Response: No adverse reaction kb3 Disposition Summary: 01/04/22 18:05 Discharge Ordered Location: Home kb Condition: Stable kb Diagnosis - Gastro-esophageal reflux disease without esophagitis kb Followup: kb - With: Emergency Department - When: As needed - Reason: Worsening of condition Followup: kb - With: Private Physician - When: 2 - 3 days - Reason: Recheck today's complaints, Continuance of care, Re-evaluation by your physician Discharge Instructions: - Discharge Summary Sheet kb - Gastroesophageal Reflux Disease, Adult, [id number] kb Forms: - Medication Reconciliation Form kb - Thank You Letter kb - Antibiotic Education kb - Prescription Opioid Use kb Prescriptions: - Protonix 40 mg Oral Tablet - take 1 tablet by ORAL route once daily; 30 tablet; Refills: 0, Product kb Selection Permitted Addendum: 01/05/2022 20:32 Co-signature as Attending Physician, Alexis Betancourt MD. r n Signatures: Dispatcher [employer] Ana David, HORTICULTURALIST-C HORTICULTURALIST-Ckb Alexis Betancourt MD MD rn Garcia, Victoria RN RN vg1 Yanira Matamoros RN RN kb3 Corrections: (The following items were deleted from the chart) 01/04 16:22 16:20 PMHx: Sleep Apnea; vg1 vg1 18:04 16:15 EKG - Nurse/Tech ordered. kb kb
[2022-01-04] MEDS ORDERED: PANTOPRAZOLE 40 MG INJ ONE (18:18)
[2022-01-05 10:17] VITALS: BP 151/89; TEMP 97.7; O2SAT 100
== END 2022-01-04 18:26 | disposition home or self-care (01) ==
LOC: ER 13:57
DX: K21.9 Gastro-esophageal reflux disease without esophagitis (principal); Z88.5 Allergy status to narcotic agent; Z91.018 Allergy to other foods
CPT/HCPCS: 85025; 36415; 84484; 83690; 80053; 96374; 99284; C9113

== ENCOUNTER 2022-06-15 15:53 | Emergency (ER) | payer OTHER, SELFPAY ==
--- OUTSIDE RECORDS SUMMARY | 2022-06-15 15:57 | XMS REPORT | Continuity of Care Document ---
:1970 Author Organization [facility] t Address [address] [place] [address] Care Team Providers Name Role Phone Eda Arthur Primary Care Physician RAGHAVENDRA GARCIA Attending Clinician Unavailable Eda Arthur Attending Clinician Unavailable LUIS LOPEZ Attending Clinician Unavailable GEORGE FRITZ Attending Clinician Unavailable MD WILLIAN Attending Clinician Unavailable ERICKA HALE Attending Clinician Unavailable LAB90 Attending Clinician Unavailable Luis Lopez DO Attending Clinician FADUMO RAM Attending Clinician Unavailable EUSEBIO ADORNO Attending Clinician Unavailable ALAINA HUMPHRIES Attending Clinician Unavailable LAB39 Attending Clinician Unavailable Eusebio Adorno PA-C Attending Clinician RAMON LINDA Attending Clinician Unavailable RONALD POOL Attending Clinician Unavailable RADIOLOGY, DEPT Attending Clinician Unavailable WATERS_S Attending Clinician Unavailable ROSE Attending Clinician Unavailable Opal Trotter Attending Clinician [phone] WATERS_S Admitting Clinician Unavailable CHANTEL_L Admitting Clinician Unavailable Payers Payer Name Policy Type Policy Number Effective Date Expiration Date S ger BCBS [facility] [id number] 2020 00:00:[address] [facility]- 2 [id number] 2021 DEGREE BENEFIT 00:00:00 TRS BLUE ESSENTIALS 9 [id number] 2021 CAPITATED PRIMARY 00:00:00 BCBS-ESSENTIALS 2 [id number] 2021 00:00:00 Problems Condition Condition Condition Status Onset Resolution Last Treating Co mments Source Name Details Category Date Date Treatment Clinician Date Gastroesop Gastroesop Disease Active 2021-04 Cherie schmitz hageal hageal 2-20 Seybold reflux reflux 00:00: - disease disease 00 Externa without without l esophagiti esophagiti s s Generalize Generalize Disease Active Cherie schmitz d edema d edema 8-04 Seybold 00:00: - 00 Externa l [place] Disease Active [place]ia (obstructi (obstructi 8-04 Se ybold ve sleep ve sleep 00:00: - apnea) apnea) 00 Externa l Other Other Disease Active [place] insomnia insomnia 8-04 Seybol d 00:00: - 00 Externa l Attention Attention Disease Active Cameron sey deficit deficit 8-04 Seybold hyperactiv hyperactiv 00:00: - ity ity 00 Externa disorder disorder l (ADHD), (ADHD), predominan predominan tly tly inattentiv inattentiv e type e type Acquired Acquired Disease Active Kelse y hypothyroi hypothyroi 7-21 Se ybold dism dism 00:00: - 00 Externa l Hyperparat Hyperparat Disease Active Cherie schmitz hyroidism hyroidism 7 Seyb old 00:00: - 00 Externa l History of History of Disease Active Cherie schmitz laparoscop laparoscop 11-10 Se ybold ic ic 00:00: - adjustable adjustable 00 Ex terna gastric gastric l banding banding Insomnia Insomnia Problem Active Sween y 1-27 [facility]i 00:00: ty 00 [facility] Gastroesop Gastroesop Problem Active S weeny hageal hageal 1-27 Communi reflux Reflux 00:00: ty disease Disease 00 [facility]ita Clin[facility] Hyperlipid Hyperlipid Problem Active S weeny emia emia 1-15 Communi 00:00: ty 00 [facility] Disorder Disorder Problem Active Sween y of joint of Joint 09-20 Commun i of ankle of Ankle 00:00: ty and/or And/or 00 [facility] Hypothyroi Hypothyroi Problem Active S rohit dism dism 1-14 Communi 00:00: ty 00 [facility] Anxiety Anxiety Problem Active [place] 1-14 Communi 00:00: ty 00 [facility] Chronic Chronic Problem Active [place] depression Depression 1-14 Co mmuni 00:00: ty 00 [facility] Cardiac Cardiac Problem Active [place] arrhythmia Arrhythmia 1-14 Co mmuni 00:00: ty 00 [facility] Sleep Sleep Problem Active [place] apnea Apnea 1-14 Communi 00:00: ty 00 [facility] No known No known Disease Kelse y active active Seybold problems problems Allergies, Adverse Reactions, Alerts Allergy Allergy Status Severity Reaction(s) Onset Inactive Treating Comm ents Source Name Type Date Date Clinician Trazodon Propensi Active PALPITATIONS irritat io S[place]ia e ty to 1-22 n Seybold adverse 00:00: - reaction 00 Externa s l Pineappl Propensi Active Other [place]ia e ty to 7-22 reaction( Seybold adverse 00:00: s): - reaction 00 Hives/Sushant Exter na s h l Tramadol Propensi Active Other [place]ia ty to 4-13 reaction( Seybold adverse 00:00: s): - reaction 00 MENTAL Externa s STATUS l CHANGEOth er reaction( s): anger Tramadol Allergy Active [place] to Communi substanc ty e Hospita l Clinics Social History Social Habit Start Date Stop Date Quantity Comments Source History SDOH Sintia mcdermott Alcohol Frequency - Exter nal History SDOH Sintia mcdermott Alcohol Std Drinks - Exte rnal History SDOH Sintia mcdermott Alcohol Binge - External Alcohol intake 2022-04-11 2022-04-11 Current drinker of Nestor Baugh 00:00:00 00:00:00 alcohol (finding) - Exter nal Cigarettes smoked 2021-11-10 2021-11-10 Sintia Baugh current (pack per 00:00:00 00:00:00 - Exter nal day) - Reported Cigarette 2021-11-10 2021-11-10 Sintia Baugh pack-years 00:00:00 00:00:00 - External Tobacco use and 2021-11-10 2021-11-10 Smokeless tobacco Nestor Baugh exposure 00:00:00 00:00:00 non-user - External Education 2021-11-10 2021-11-10 17 Sintia luma 00:00:00 00:00:00 - External Alcohol Comment 2021-10-25 2021-10-25 Occasionally Sintia Baugh 00:00:00 00:00:00 - External History of tobacco 2020-06-21 Cigarette Smoker Sintia luma use 00:00:00 - External Sex [birth year] At [birth year] F Sintia ge 00:00:00 00:00:00 - External Smoking Status Start Date Stop Date Source Tobacco smoking [facility] consumption unknown Ex-smoker 2021-11-10 00:00:00 2021-11-10 Sintia Canas ld - 00:00:00 External Smokes tobacco daily 2021-09-23 00:00:00 Sintia Baugh Medications Ordered Filled Start Stop Current Ordering Indication Dosage Frequency Signature Comments Components Source Medication Medication Date Date Medication? Clinician (SIG) Name Name Albuterol 2021-04 Yes 2{puff} 2 puffs Nestor kulkarni HFA 108 (90 2-20 every 6 Seybo ld Base) 11:03: (six) - MCG/ACT IN 37 hours Externa AERS l Naproxen 2021-04 Yes 250mg Take 250 Karolina ey 250 MG oral 2-20 mg by Seybold Tablet 11:03: mouth in - 37 the Externa morning l and 250 mg in the evening. Take with meals. Albuterol 2021-04 Yes 2{puff} 2 puffs Ke lsey HFA 108 (90 2-20 every 6 Seybo ld Base) 11:03: (six) - MCG/ACT IN 37 hours Externa AERS l Naproxen 2021-04 Yes 250mg Take 250 Karolina ey 250 MG oral 2-20 mg by Seybold Tablet 11:03: mouth in - 37 the Externa morning l and 250 mg in the evening. Take with meals. Pantoprazol 2021-04 Yes [id number] 40mg Take 1 Sintia e Sodium 40 2-20 tablet (40 Se ybold MG oral 00:00: mg total) - Tablet 00 by mouth Externa Delayed daily l Response Amphetamine 2021-04 Yes [id number] 10mg Take 1 [place] -Dextroamph 2-20 tablet (10 Se ybold etamine 00:00: mg total) - (ADDERALL, 00 by mouth Exter na 10MG,) 10 daily l MG oral Tablet Pantoprazol 2021-04 Yes [id number] 40mg Take 1 Sintia e Sodium 40 2-20 tablet (40 Se ybold MG oral 00:00: mg total) - Tablet 00 by mouth Externa Delayed daily l Response Amphetamine 2021-04- Yes [id number] 10mg Take 1 [place] -Dextroamph 2-20 01-20 tablet (10 S eybold etamine 00:00: 05:59 mg total) - (ADDERALL, 00 :00 by mouth Exter na 10MG,) 10 daily l MG oral Tablet Esomeprazol 2021-04- No [id number] 20mg Take 1 Sintia e Magnesium 0-19 12-20 capsule Seyb old (NexIUM) 20 00:00: 00:00 (20 mg - MG oral 00 :00 total) by Externa Delayed mouth l Release every Capsule morning (before breakfast) Furosemide 2021-04 Yes [id number] TAKE 1 S[place]ia 20 MG oral 0-12 TABLET BY Seyb old Tablet 00:00: MOUTH - 00 EVERY DAY Externa l Furosemide 2021-04 Yes [id number] TAKE 1 [place] 20 MG oral 0-12 TABLET BY Seyb old Tablet 00:00: MOUTH - 00 EVERY DAY Externa l Amphetamine 2021- No [id number] 10mg Take 1 [place] -Dextroamph 9-27 12-20 tablet (10 S eybold etamine 00:00: 00:00 mg total) - (ADDERALL, 00 :00 by mouth Exter na 10MG,) 10 daily l MG oral Tablet Pantoprazol 2021- No 40mg Take 40 mg Sintia e Sodium 40 9-14 12-20 by mouth Sey bold MG oral 00:00: 00:00 daily - Tablet 00 :00 Externa Delayed l Response Calcium Yes 500mg Take 1 [place] Carbonate 8-22 tablet Seybold Antacid 500 00:00: (500 mg - MG oral 00 total) by Externa Chewable mouth 2 l Tablet times daily Levothyroxi Yes 50ug Take 1 Karolina ey ne Sodium 8-22 tablet (50 Seyb old 50 MCG oral 00:00: mcg total) - Tablet 00 by mouth Externa daily l Calcium Yes 500mg Take 1 [place] Carbonate 8-22 tablet Seybold Antacid 500 00:00: (500 mg - MG oral 00 total) by Externa Chewable mouth 2 l Tablet times daily Levothyroxi Yes 50ug Take 1 Karolina ey ne Sodium 8-22 tablet (50 Seyb old 50 MCG oral 00:00: mcg total) - Tablet 00 by mouth Externa daily l Albuterol Yes 2{puff} 2 puffs Ke lsey HFA 108 (90 6-03 every 6 Seybo ld Base) 11:03: (six) MCG/ACT IN 33 hours AERS Esomeprazol Yes esomeprazo [place]ia e Magnesium 6-03 le Seybold 20 MG oral 11:03: magnesium Delayed 33 20 mg Release capsule,de Capsule layed release TK 1 C PO BID UTD Dicyclomine Yes [place] HCl 20 MG 5-20 Seybold oral Tablet 00:00: 00 Levothyroxi 2022-0 Yes TAKE 1 Karolina ey ne Sodium 4-19 TABLET BY Floresita ld 25 MCG oral 00:00: MOUTH Tablet 00 EVERY DAY IN THE MORNING ON EMPTY STOMACH FOR 30 DAYS Cholecalcif 2021-0 Yes TAKE 1 Karolina ey marcia 3-21 CAPSULE BY Amauri (Vitamin 00:00: MOUTH ONCE D3) 1.25 MG 00 A WEEK FOR (61814 UT) 90 DAYS oral Capsule albuterol albuterol No 2puff(s Q6H albuterol [place] sulfate HFA sulfate HFA ) sulfate Communi 90 90 HFA 90 ty mcg/actuati mcg/actuati mcg/actuat Hospita on aerosol on aerosol ion l inhaler inhaler aerosol Clinic s Inhale 2 Inhale 2 inhaler puffs every puffs every Inhale 2 6 hours by 6 hours by puffs inhalation inhalation every 6 route as route as hours by needed for needed for inhalation 30 days. 30 days. route as needed for 30 days. esomeprazol esomeprazol No esomeprazo [place] e magnesium e magnesium le C ommuni 20 mg 20 mg magnesium ty capsule,del capsule,del 20 mg Hospita ayed ayed capsule,de l release TK release TK layed Cl inics 1 C PO BID 1 C PO BID release TK UTD UTD 1 C PO BID UTD hydroxychlo hydroxychlo No 1 BID hydroxychl [place] roquine 200 roquine 200 oroquine Communi mg tablet mg tablet 200 mg ty Take 1 Take 1 tablet Hospita tablet tablet Take 1 l twice a day twice a day tablet Clinics by oral by oral twice a route as route as day by directed directed oral route for 5 days. for 5 days. as directed for 5 days. naproxen naproxen No naproxen Swe yfn 500 mg 500 mg 500 mg Communi tablet TAKE tablet TAKE tablet ty 1 TABLET BY 1 TABLET BY TAKE 1 Hospita MOUTH EVERY MOUTH EVERY TABLET BY l 12 HOURS 12 HOURS MOUTH Clinics DIRECTED DIRECTED EVERY 12 HOURS DIRECTED ondansetron ondansetron No 1 Q5H ondansetro [place] 4 mg 4 mg n 4 mg Communi disintegrat disintegrat disintegra ty ing tablet ing tablet ting [facility] 1 Place 1 tablet l tablet tablet Place 1 Clinics every 4-6 every 4-6 tablet hours by hours by every 4-6 translingua translingua hours by l route as l route as translingu needed for needed for al route 5 days. 5 days. as needed for 5 days. prednisone prednisone No 1dose prednisone [place] 10 mg 10 mg pk(s) 10 mg Communi tablets in tablets in tablets in ty a dose pack a dose pack a dose Hospita Take 1 dose Take 1 dose pack Take l pk by oral pk by oral 1 dose pk Clinics route as route as by oral directed directed route as for 6 days. for 6 days. directed for 6 days. Vital Signs Vital Name Observation Time Observation Value Comments Source Systolic blood 2022-04-11 16:59:00 123 mm[Hg] S[facility]ia Seybold - pressure External Diastolic blood 2022-04-11 16:59:00 76 mm[Hg] Clive y Seybold - pressure External Heart rate 2022-04-11 16:59:00 87 /min Sintia sofiabold - External Body temperature 2022-04-11 16:59:00 37.11 Shawna Karolina ey Seybold - External Respiratory rate 2022-04-11 16:59:00 14 /min Karolina ey Seybold - External Body height 2022-04-11 16:59:00 167.6 cm Sintia S eybold - External Body weight 2022-04-11 16:59:00 134.718 kg Sintia S eybold - External BMI 2022-04-11 16:59:00 47.94 kg/m2 Sintia sofiabold - External Oxygen saturation in 2022-04-11 16:59:00 99 /min Sintia luma - Arterial blood by External Pulse oximetry Body height 2021-09-23 16:03:00 167.6 cm Sintia S eybold Body weight 2021-09-23 16:03:00 124.739 kg S[place]ia S eybold BMI 2021-09-23 16:03:00 44.39 kg/m2 Sintia S bismarkbold BP Diastolic 2020-11-30 00:00:00 65 mm[Hg] [facility] s Height 2020-11-30 00:00:00 67.5 [in_i] [facility] s BMI (Body Mass 2020-11-30 00:00:00 42 kg/m2 [facility] BP Systolic 2020-11-30 00:00:00 120 mm[Hg] [facility] s Body Weight 2020-11-30 00:00:00 4352 [oz_av] [facility] s Procedures Procedure Date / Time Performing Clinician Source Performed XR, chest, 2 view 2020-11-30 00:00:00 [facility] Excision of Ganglion Cyst [facility] Knee Surgery [facility] Appendectomy [facility] Cholecystectomy [facility] Laparoscopic Adjustable [facility] Gastric Banding [facility] Partial Hysterectomy [facility] Plan of Care Planned Activity Planned Date Details Comments Source Diagnostic Test 2020-11-30 rapid SARS CoV 2 Ag, [facility] Pending 00:00:00 QL [place], respiratory Hospital Clinics specimen [code = rapid SARS CoV 2 Ag, QL [place], respiratory specimen] Instructions [facility] Clinic s Encounters Start End Encounter Admission Attending Care Care Encounter Source Date/Time Date/Time Type Type Clinicians Facility Department ID 2021-09-08 Outpatient RAGHAVENDRA GARCIA [facility] [id number] 8-2 [place] 13:43:31 [id number] Health 2021-07-07 Outpatient Sandhya, [facility] [id number] Common 10:37:01 Eda [facility] 2021-05-30 [place], [facility] [id number] Common 11:08:02 Eda [facility] 2021-05-19 Outpatient [place], [facility] [id number] Common 07:24:00 Eda [facility] 2021-05-18 Outpatient Sandhya [facility] [id number] Common 14:59:02 Eda [facility] 2022-06-15 2022-06-15 Outpatient SINTIA LOPEZ [id number] [place] 00:00:00 00:00:00 LUIS carbone 2022-05-23 2022-05-23 Outpatient SINTIA FRITZ [id number] [place] 14:15:00 14:15:00 GEORGE Seybol d 2022-05-02 2022-05-02 Outpatient ANSELMO SINTIA PEREZ [id number] [place] 00:00:00 00:00:00 MD ALEX Seybol d 2022-04-11 2022-04-11 Outpatient SINTIA LOPEZ [id number] [place] 11:00:00 11:00:00 LUIS Seybol d 2022-03-30 2022-03-30 Outpatient SINTIA HALE [id number] [place] 00:00:00 00:00:00 ERICKA Seybol d 2022-03-23 2022-03-23 Outpatient SINTIA PEREZ [id number] [place] 09:00:00 09:00:00 Seybol d 2022-03-01 2022-03-01 Outpatient SINTIA HALE [id number] [place] 14:00:00 14:00:00 ERICKA Seybol d 2022-02-22 2022-02-22 Outpatient SINTIA HALE [id number] [place] 14:15:00 14:15:00 ERICKA Seybol d 2022-02-15 2022-02-15 Outpatient LILLIANCELSA SINTIA PEREZ [id number] [place] 00:00:00 00:00:00 MD ALEX Seybol d 2022-02-14 2022-02-14 Outpatient KARRIJEROME PEREZ [id number] [place] 00:00:00 00:00:00 MD ALEX Seybol d 2022-02-08 2022-02-08 Outpatient LAMSINTIA REYNOSO [id number] [place] 14:45:00 14:45:00 GEORGE Seybol d 2021-12-09 2021-12-09 Outpatient LAB90 SINTIA PEREZ [id number] [place] 16:45:00 16:45:00 Seybol d 2021-12-09 2021-12-09 Telemedici Garry Lopez [id number] [place] 16:15:00 16:30:26 ne Luis Mustafa [id number] Se ybold [id number] 2021-12-06 2021-12-06 Outpatient SINTIA LOPEZ [id number] [place] 16:15:00 16:15:00 LUIS Seybol d 2021-11-28 2021-11-28 Telemedici WES RAM [id number] [place] 11:30:00 11:30:00 ne [facility] [id number] Se ybold [id number] 2021-11-28 2021-11-28 Outpatient SINTIA RAM [id number] [place] 00:00:00 00:00:00 FADUMO Sheridanol tona 2021-11-24 2021-11-24 Office LindaGarry sims [id number] iSntia 15:15:00 15:30:00 Visit Luis Ramsey [id number] Se ybold [id number] 2021-11-23 2021-11-23 Outpatient SINTIA RAM [id number] [place] 14:15:00 14:15:00 FADUMO Sheridanol tona 2021-11-11 2021-11-11 Outpatient SINTIA ADORNO [id number] [place] 00:00:00 00:00:00 [facility] Se ybold A 2021-11-10 2021-11-10 Office Garry Lopez [id number] [place] 11:00:00 11:15:00 Visit Lusi Ramsey [id number] Se ybold [id number] 2021-11-08 2021-11-08 Outpatient SINTIA HUMPHRIES [id number] S[place] 00:00:00 00:00:00 ALAINA Sheridano ld 2021-11-07 2021-11-07 Outpatient SINTIA RAM [id number] [place] 00:00:00 00:00:00 FADUMO Seybol d 2021-11-07 2021-11-07 Outpatient SINTIA ADORNO [id number] [place] 00:00:00 00:00:00 [facility] ybold A 2021-11-02 2021-11-02 Outpatient LAB39 SINTIA PEREZ [id number] [place] 12:15:00 12:15:00 Seybol d 2021-11-02 2021-11-02 Office WES Adorno [id number] [place] 11:30:00 12:00:00 Visit [facility] [id number] Seybold a [id number] 2021-10-31 2021-10-31 Outpatient SINTIA ADORNO [id number] [place] 09:00:00 09:00:00 [facility] ybold A 2021-10-31 2021-10-31 Outpatient SINTIA HUMPHRIES [id number] [place] 00:00:00 00:00:00 YITZCHAK Seybo ld 2021-10-29 2021-10-29 Outpatient SINTIA HUMPHRIES [id number] [place] 00:00:00 00:00:00 YITZCHAK Seybo ld 2021-10-29 2021-10-29 Outpatient SINTIA LINDA [id number] [place] 00:00:00 00:00:00 RAMON Seybo ld 2021-10-29 2021-10-29 Outpatient SINTIA HUMPHRIES [id number] S[place] 00:00:00 00:00:00 YITZCHAK Seybo ld 2021-10-27 2021-10-27 Outpatient SINTIA HUMPHRIES [id number] [place] 07:30:00 07:30:00 YITZCHAK Seybo ld 2021-10-27 2021-10-27 Outpatient SINTIA POOL [id number] [place] 00:00:00 00:00:00 RONALD Seybol d 2021-10-23 2021-10-23 Outpatient SINTIA HUMPHRIES [id number] [place] 00:00:00 00:00:00 YITZCHAK Seybo ld 2021-10-20 2021-10-20 Outpatient SINTIA HUMPHRIES [id number] S[place] 00:00:00 00:00:00 YIPASCUALK Seybo ld 2021-10-13 2021-10-13 Office WES HUMPHRIES [id number] S[place] 09:30:00 09:30:00 Visit [facility] [id number] S eybold [id number] 2021-10-11 2021-10-11 Outpatient RADIOLOGY, SINTIA PEREZ [id number] S[place] 00:00:00 00:00:00 DEPT Seybol d 2021-10-11 2021-10-11 Outpatient SINTIA HUMPHRIES [id number] [place] 00:00:00 00:00:00 YIPASCUALK Seybo ld 2021-09-29 2021-09-29 Outpatient SINTIA PEREZ [id number] [place] 10:00:00 10:00:00 Seybol d 2021-09-26 2021-09-26 Outpatient SINTIA HUMPHRIES [id number] [place] 00:00:00 00:00:00 YIPASCUALK Seybo ld 2021-09-23 2021-09-23 Outpatient SINTIA PEREZ [id number] [place] 17:40:00 17:40:00 Seybol d 2021-09-23 2021-09-23 Outpatient SINTIA PEREZ [id number] [place] 17:35:00 17:35:00 Seybol d 2021-09-23 2021-09-23 Outpatient SINTIA PEREZ [id number] [place] 17:30:00 17:30:00 Seybol d 2021-09-23 2021-09-23 Office WES HUMPHRIES [id number] [place] 10:45:00 10:45:00 Visit [facility] [id number] S eybold [id number] 2021-09-21 2021-09-21 Outpatient SINTIA HUMPHRIES [id number] [place] 00:00:00 00:00:00 ALAINA mcdermott 2021-09-08 2021-09-08 Telephone Raghavendra Garcia [id number] ID 00:00:00 00:00:00 FREDA SCHULTZ [id number] [facility] [id number] 2021-05-04 2021-05-[address] W[address]_S [facility] [id number] [place] 02:45:00 02:45:00 112 Commun i ty [facility]osp[facility] Clinics 2020-11-30 2020-11-30 Outpatient [facility] [id number] [place] 05:03:00 05:03:00 _L 810 Commun i ty Hospita l Clinics 2020-11-30 2020-11-30 Outpatient [facility] [id number] 00:00:00 00:00:00 , Opal [id number] Re [id number] 2020-11-30 2020-11-30 Opal Grimaldo [facility] [place] - [place] [id number] [place] 00:00:00 00:00:00 [facility] josiah llanos, [facility]: [address], [facility] [[email or web address]] [address], [place] [address] , Ph. Results Test Description Test Time Test Comments Results Result [facility] e Comments SCR [facility] 2021-05-06 BILATERAL NEERU 08:42:57 CAD DIGITAL Name: Nafisa : 1970 Sex: F - SCR MAMM BILATERAL NEERU CAD DIGITALBILATERAL DIGITAL SCREENING MAMMOGRAM 3D/2D WITH CAD: 2CLINICAL: Asymptomatic. Digital breast tomosynthesis was performed in addition to routine CC and MLO views. Current mammographic images were evaluated by [place] [employer] CAD (computer-aided detection) software. No prior exams were available for comparison. There are scattered fibroglandular tissues in both breasts. No suspicious mass, architectural distortion, malignant type calcification, or lymph node abnormality detected. IMPRESSION: NEGATIVEThere is no mammographic evidence of malignancy. Resume annual screening mammography in one year. Ericka Duron M.D. et/penrad:05/06/2021 08:42:57 Process Safety Engineering Technologist: Denisse Asher MM, [facility] Mammographyletter sent: BIRADS 1-2 Normal Mammogram BI-RADS: 1 Negative SARS-CoV-2 (COVID-19) Ag [Presence] in Respiratory spe cimen by 2020-11-30 14:33:00 Rapid immunoassay Test Item Value Reference Range Interpretation Comme nts SARS CoV 2 (test code = SARS CoV 2) positive [facility]
[2022-06-15] MEDS ORDERED: ACETAMINOPHEN 500 MG TAB ONE (16:51)
[2022-06-15] MEDS ORDERED: Ringers Lactate 1,000 ML IV ONE (16:51)
[2022-06-15 17:23] LABS: Urine Blood 2+ (Negative); Urine Glucose Negative (Negative); Urine Protein 1+ (Negative); Urine Specific Gravity 1.025 (1.005-1.030)
[2022-06-15 17:28] LABS: Absolute Lymphocytes (CBC) 1.8 K/uL (0.7-4.9); Hematocrit 34.6 % (36.0-45.0); Lymphocytes % 13.3 % (15.3-44.8); MCV 82.3 fL (80-100); MPV 7.8 fL (7.6-11.3); RBC Red Blood Cell Count 4.21 M/uL (3.86-4.86)
[2022-06-15 17:32] LABS: Protime INR 1.22
[2022-06-15 17:35] LABS: Urine Bacteria <20 /HPF (<20); Urine Crystals Unidentified Few /HPF (None Seen); Urine Mucus 1+ /HPF (None Seen); Urine WBC Clump Rare /HPF (None Seen)
[2022-06-15 17:45] LABS: Albumin 3.1 g/dL (3.4-5.0); Bilirubin Total 0.4 mg/dL (0.2-1.0); Potassium 3.6 mmol/L (3.5-5.1); Protein, Total 7.5 g/dL (6.4-8.2)
[2022-06-15 18:49] LABS: SARS-COV-2 RT PCR NEGATIVE (NEGATIVE)
--- NOTE | 2022-06-15 19:27 | RAD REPORT ---
EXAM DESCRIPTION: CTAbdomen Pelvis W Contrast - 06/15/2022 7:07 pm CLINICAL HISTORY: ABD PAIN COMPARISON: CT ABD PELVIS W CONTRAST dated 01/16/2014 TECHNIQUE: CT of the abdomen and pelvis was performed with IV contrast. All CT scans are performed using dose optimization technique as appropriate and may include automated exposure control or mA/KV adjustment according to patient size. FINDINGS: Lower chest: Circumferential thickened distal esophagus. Liver: No acute abnormality or suspicious lesions. Biliary: No biliary ductal dilatation. Cholecystectomy. Stomach: Status post gastric band. The band has slipped compared with prior. . Duodenum: No significant focal abnormality. Pancreas: No significant abnormality. Spleen: No significant abnormality. Adrenal: No suspicious lesions. Kidney/ureter: Hypoattenuation the lower pole right kidney noted. Several renal cysts noted. 6 mm sto ne in the right renal pelvis. Retroperitoneum: No retroperitoneal adenopathy. Vascular: No aneurysm. Bowel: No significant focal abnormality.Appendectomy. Peritoneum: No ascites or free air. Bladder: Grossly unremarkable. Reproductive: No adnexal masses. Bones: No acute fracture. Disc height loss L5-S1. Other: n/a IMPRESSION: Masslike hypoattenuation lower pole right kidney suspicious for pyelonephritis. Recommen d follow-up ultrasound in 6 weeks to exclude an underlying lesion. Slipped gastric band compared with 01/16/2014.
--- NOTE | 2022-06-15 19:57 | ER ---
Nurse's Notes [facility] Name: Nafisa Doyle Age: 51 yrs Sex: Female : 1970 Arrival Date: 06/15/2022 Time: 15:55 Bed 18 Private MD: Nate Lopez Diagnosis: Pyelonephritis acute Presentation: 06/15 16:04 Initial Sepsis Screen: Does the patient meet any 2 criteria? HR > 90 bpm. No. Patient's ss initial sepsis screen is negative. Does the patient have a suspected source of infection? No. Patient's initial sepsis screen is negative. 16:14 Chief complaint: Patient states: body aches, fever, diarrhea, vomiting, since Sunday, iw also has sarai kidney pain, was seen at [facility] urgent care yesterday and started on cefdinir and promethazine , symptoms not improved, was told to come to ER. Coronavirus screen: Client presents with at least one sign or symptom that may indicate coronavirus-19. Ebola Screen: Patient negative for fever greater than or equal to 101.5 degrees Fahrenheit, and additional compatible Ebola Virus Disease symptoms Patient denies exposure to infectious person. Patient denies travel to an Ebola-affected area in the 21 days before illness onset. No symptoms or risks identified at this time. Initial Sepsis Screen: Does the patient meet any 2 criteria?. Risk Assessment: Do you want to hurt yourself or someone else? Patient reports no desire to harm self or others. Onset of symptoms was June 12, 2022. 16:14 Method Of Arrival: Ambulatory iw 16:14 Acuity: DEVANTE 3 iw Triage Assessment: 18:53 Pain: Complains of pain in low back area. 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 - Social history:: Smoking status: Patient/guardian denies using tobacco, Stopped _ months ago 1.5. Screenin:41 Abuse screen: Denies threats or abuse. Denies injuries from another. Nutritional ss screening: No deficits noted. Tuberculosis screening: Never had TB. 18:10 [facility] ED Fall Risk Assessment (Adult) History of falling in the last 3 months, ap3 including since admission No falls in past 3 months (0 pts). Assessment: 16:41 General: Appears uncomfortable, Behavior is cooperative, tearful. Neuro: Level of ss Consciousness is awake, alert, obeys commands. Respiratory: Airway is patent Respiratory effort is even, unlabored, Respiratory pattern is regular, symmetrical. GI: Reports nausea. Derm: Skin is intact, is healthy with good turgor, Skin is dry, Skin is pink, warm \T\ dry. normal. Musculoskeletal: Range of motion: intact in all extremities, Swelling absent. 16:43 Reassessment: Pt remains in recliner in Diagnostic waiting area while awaiting for room ss to become available. Pt states that she is comfortable in chair. Spouse remains with patient. 18:12 Reassessment: Patient appears in no apparent distress at this time. Patient and/or ss family updated on plan of care and expected duration. Pain level reassessed. Pt moved to ER room 18. Awaiting for CT to be obtained. 18:53 Reassessment: Patient and/or family updated on plan of care and expected duration. Pain ap3 level reassessed. Patient is alert, oriented x 3, equal unlabored respirations, skin warm/dry/pink. 19:50 Reassessment: Patient and/or family updated on plan of care and expected duration. Pain ha1 level reassessed. Patient is alert, oriented x 3, equal unlabored respirations, skin warm/dry/pink. General: Appears comfortable, Behavior is calm, cooperative. Neuro: Level of Consciousness is awake, alert, obeys commands. Respiratory: Airway is patent Respiratory effort is even, unlabored, Respiratory pattern is regular, symmetrical. Vital Signs: 16:09 Temp 100.6(O); iw 16:40 BP 123 / 85; Pulse 92; Resp 16; Pulse Ox 95% on R/A; Weight 90.72 kg; Height 5 ft. 6 ss in. (167.64 cm); 19:40 BP 126 / 67; Pulse 75; Resp 18 S; Pulse Ox 99% on R/A; ha1 16:40 Body Mass Index 32.28 (90.72 kg, 167.64 cm) ED Course: 15:55 Patient arrived in ED. am2 15:55 Nate Lopez DO is Private Physician. am2 15:57 Caio Aviles DO is Attending Physician. ms3 16:16 Triage completed. iw 16:16 Arm band placed on. iw 16:40 Kenia Colbert, ALEJA is Primary Nurse. ss 16:41 Patient has correct armband on for positive identification. ss 17:21 Inserted saline lock: 22 gauge in right wrist, using aseptic technique. Blood ss collected. Patient maintains SpO2 saturation greater than 95% on room air. 17:41 COVID-19/FLU A+B Sent. ah1 18:11 No provider procedures requiring assistance completed. ap3 19:00 Attending Physician role handed off by Caio Aviles DO ms3 19:00 Alexis Betancourt MD is Attending Physician. ms3 20:28 IV discontinued, intact, bleeding controlled, No redness/swelling at site. Pressure ha1 dressing applied. Administered Medications: 17:21 Drug: Lactated Ringers Solution 1000 ml Route: IV; Rate: 1000 bolus; Site: right wrist; ss 17:21 Drug: Tylenol 1000 mg Route: PO; ss 20:01 Drug: Rocephin (cefTRIAXone) 1 grams Route: IV; Rate: calculated rate; Site: right ha1 forearm; 20:27 Follow up: Response: No adverse reaction ha1 Medication: 16:41 VIS not applicable for this client. ss Outcome: 19:56 Discharge ordered by . rn 20:28 Discharged to home ambulatory, with family. ha1 20:28 Condition: stable 20:28 Discharge instructions given to patient, family, Instructed on discharge instructions, follow up and referral plans. medication usage, Demonstrated understanding of instructions, follow-up care, medications, Prescriptions given X 1. 20:29 Patient left the ED. ha1 Signatures: Diana Christian RN RN Alexis Betancourt MD MD rn Smirch, Shelby, RN RN ss Blanca Arellano amBlanca Tirado RN RN ap3 Caio Aviles DO DO ms3 Sindy Evans RN RN ha1 Shaista Morris [facility] Corrections: (The following items were deleted from the chart) 18:10 18:10 Initial Sepsis Screen: Does the patient have a suspected source of infection? ap3 ap3
--- NOTE | 2022-06-15 19:57 | EDPHYS ---
Physician Documentation [facility] Name: Nafisa Doyle Age: 51 yrs Sex: Female : 1970 Arrival Date: 06/15/2022 Time: 15:55 Bed 18 Private MD: Nate Lopez ED Physician Alexis Betancourt HPI: 06/15 18:07 This 51 yrs old Female presents to ER via Ambulatory with complaints of kidney pain, ms3 dehydration, Nausea, Fever. 18:07 51-year-old female with past medical history of ADD/ADHD, angina pectoris, anxiety, ms3 depression, hypothyroidism presents for body aches that began on Sunday, becoming worse on Sunday, and a fever of 103 noted today. Patient was seen at urgent care yesterday and given an antibiotic and steroid injection. Patient was told she had a urinary tract infection as the urine appeared cloudy and the ammonia was positive. Patient is currently on cefdinir and promethazine. Patient states her discomfort is a 10/10 and described as aching. Patient denies alleviating or inciting factors.. 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 - Social history:: Smoking status: Patient/guardian denies using tobacco, Stopped _ months ago 1.5. ROS: 18:07 Neck: Negative for injury, pain, and swelling, Cardiovascular: Negative for chest pain, ms3 and palpitations. Respiratory: Negative for shortness of breath, cough, wheezing, and pleuritic chest pain. 18:07 Constitutional: Positive for body aches, chills, fever. 18:07 All other systems are negative. 18:09 : Negative for injury, bleeding, discharge, and swelling. ms3 Exam: 18:07 Constitutional: This is a well developed, well nourished patient who is awake, alert, ms3 and in no acute distress. Head/Face: Normocephalic, atraumatic. Chest/axilla: Normal chest wall appearance and motion. Nontender with no deformity. Cardiovascular: Regular rate and rhythm with a normal S1 and S2. No gallops, murmurs, or rubs. Normal PMI, no JVD. No pulse deficits. Respiratory: Lungs have equal breath sounds bilaterally, clear to auscultation and percussion. No rales, rhonchi or wheezes noted. No increased work of breathing, no retractions or nasal flaring. Abdomen/GI: Soft, non-tender, with normal bowel sounds. No distension or tympany. No guarding or rebound. No evidence of tenderness throughout. Skin: Warm, dry with normal turgor. Normal color with no rashes, no lesions, and no evidence of cellulitis. MS/ Extremity: Pulses equal, no cyanosis. Neurovascular intact. Full, normal range of motion. Vital Signs: 16:09 Temp 100.6(O); iw 16:40 BP 123 / 85; Pulse 92; Resp 16; Pulse Ox 95% on R/A; Weight 90.72 kg; Height 5 ft. 6 ss in. (167.64 cm); 19:40 BP 126 / 67; Pulse 75; Resp 18 S; Pulse Ox 99% on R/A; ha1 16:40 Body Mass Index 32.28 (90.72 kg, 167.64 cm) ss MDM: 16:34 Patient medically screened. ms3 18:07 Differential diagnosis: Nonspecific abd pain, Flu vs COVID vs Pyelonephritis vs UTI. ms3 18:59 Transition of care: After a detail discussion of the patient's case, care is ms3 transferred to Alexis Betancourt MD. 19:53 Data reviewed: vital signs, nurses notes, lab test result(s), radiologic studies, CT rn scan, and as a result, I will admit patient. Consideration of Admission/Observation Escalation of care including admission/observation considered. I considered the following discharge prescriptions or medication management in the emergency department Medications were administered in the Emergency Department. See MAR. Counseling: I had a detailed discussion with the patient and/or guardian regarding: the historical points, exam findings, and any diagnostic results supporting the discharge/admit diagnosis, lab results, radiology results, the need for further work-up and treatment in the hospital. Response to treatment: the patient's symptoms have markedly improved after treatment, and as a result, I will admit patient. Refusal of service: The patient/guardian displays adequate decision making capability and despite a detailed discussion of alternatives, benefits, risks, and consequences refuses: Admission to the hospital for further work-up and treatment. ED course: SPoke with patient regarding admission to hospital for pyelonephritis, patient declines 2/2 insurance reasons. Had long discussion regarding neg for sepsis, has only been on 1 day of abx, urine doesn't look terrible here, but ct shows possible pyelo. Came up with plan with patient where we would do rocephin here, then dc home with cefpodoxime and given strict return precautions. Pt happy with plan.. 06/15 16:31 Order name: Blood Culture Adult (2) ms3 06/15 16:31 Order name: CBC with Diff ms3 06/15 16:31 Order name: CMP ms3 06/15 16:31 Order name: Lactate w/ 2H reflex if indic. ms3 06/15 16:31 Order name: Protime (+inr) ms3 06/15 16:31 Order name: Ptt, Activated ms3 06/15 16:31 Order name: Urine Microscopic Only 3 06/15 17:09 Order name: COVID-19/FLU A+B ms3 06/15 17:24 Order name: Urine Dipstick-Ancillary; Complete Time: 17:50 EDMS 06/15 17:30 Order name: CBC with Automated Diff; Complete Time: 17:50 EDMS 06/15 17:32 Order name: Protime (+INR); Complete Time: 17:50 EDMS 06/15 17:32 Order name: PTT, Activated Partial Thromb; Complete Time: 17:50 EDMS 06/15 17:36 Order name: Urine Microscopic Only; Complete Time: 17:50 EDMS 06/15 17:45 Order name: Comprehensive Metabolic Panel; Complete Time: 17:50 EDMS 06/15 16:31 Order name: Accucheck; Complete Time: 18:11 06/15 16:31 Order name: Cardiac monitoring; Complete Time: 18:11 3 06/15 16:31 Order name: EKG - Nurse/Tech; Complete Time: 19:11 06/15 16:31 Order name: IV Saline Lock - Large Bore; Complete Time: 18:11 06/15 16:31 Order name: Labs collected and sent; Complete Time: 18:11 ms3 06/15 16:31 Order name: O2 Per Protocol; Complete Time: 16:44 ms3 06/15 16:31 Order name: O2 Sat Monitoring; Complete Time: 18:11 ms3 06/15 16:31 Order name: Urine Dipstick-Ancillary (obtain specimen); Complete Time: 18:12 ms3 06/15 17:46 Order name: Lactate w/ 2H reflex if indic.; Complete Time: 17:50 EDMS 06/15 17:55 Order name: CT Abd/Pelvis - IV Contrast Only ms3 06/15 18:49 Order name: COVID-19/FLU A+B; Complete Time: 19:02 EDMS 06/15 19:27 Order name: CT; Complete Time: 19:58 EDMS 06/15 16:31 Order name: Vital Signs; Complete Time: 16:44 ms3 Administered Medications: 17:21 Drug: Lactated Ringers Solution 1000 ml Route: IV; Rate: 1000 bolus; Site: right wrist; ss 17:21 Drug: Tylenol 1000 mg Route: PO; ss 20:01 Drug: Rocephin (cefTRIAXone) 1 grams Route: IV; Rate: calculated rate; Site: right ha1 forearm; 20:27 Follow up: Response: No adverse reaction ha1 Disposition Summary: 06/15/22 19:56 Discharge Ordered Location: Home rn Problem: new rn Symptoms: have improved rn Condition: Stable rn Diagnosis - Pyelonephritis acute rn Followup: rn - With: Private Physician - When: As needed - Reason: Recheck today's complaints, Re-evaluation by your physician Discharge Instructions: - Discharge Summary Sheet rn - Pyelonephritis, Adult rn Forms: - Medication Reconciliation Form rn - Thank You Letter rn - Antibiotic government guard - Prescription Opioid Use rn Prescriptions: - cefpodoxime 100 mg Oral Tablet - take 2 tablets by ORAL route every 12 hours for 10 days take with food; 40 rn tablet; Refills: 0, Product Selection Permitted Signatures: Dispatcher [employer] Diana Shafer RN Alexis Salvador MD MD rn Smirch, Shelby, RN RN ss Sims, Marcus, DO DO ms3 Sindy Evans RN RN ha1
[2022-06-15] MEDS ORDERED: CEFTRIAXONE 1000 MG/VIAL ONE (20:08)
[2022-06-15] MEDS ORDERED: NA CHLORIDE 0.9% 50 ML ONE (20:08)
[2022-06-15 21:09] VITALS: TEMP 100.6
[2022-06-15 21:12] VITALS: BP 126/67; O2SAT 99
== END 2022-06-15 20:29 | disposition home or self-care (01) ==
LOC: ER 15:53
DX: N10 Acute pyelonephritis (principal); Z20.822 Contact with and (suspected) exposure to COVID-19; Z88.5 Allergy status to narcotic agent; Z91.018 Allergy to other foods
CPT/HCPCS: 87040 ×2; 87088; 85025; 87086; 36415; 85610; 83605; 85730; 80053; 0240U; 74177; 96374; 99284; Q9967; J7120; 81003; 81015

== ENCOUNTER 2024-05-14 19:34 | Emergency (ER) | payer OTHER ==
--- OUTSIDE RECORDS SUMMARY | 2024-05-14 19:39 | XMS REPORT | Continuity of Care Document ---
Author Name Unknown Address [address] [place] [address] [facility]connect Address [address] [place] [address] Support Name Relationship Address Phone Lazarus Ozzy Spouse [address] [place] [address] Andie Pagan Sibling Unknown Bogdan Hendrickson Unrelated friend Unknown [phone] KE MATTHEWS Primary Care Physician [address] [place], [place] [address] STEFANI BARBOSA, TWAN Emergency Provider [address] [place] [address] OLIVER LUIS Next of Kin [address] [place] [address] FLOYD BARBOSA, [facility] Emergency Provider [address] [place] [address] MD CICI HERNANDEZ Emergency Provider [address] [place] [address] DAYANA TROTTER Primary Care Physician [address] [place] [address] 1 BOGDAN [address] [place] [address] Unavailable BOGDAN RUSSO FRD [address] [place] [address] 2 Personal Relationship [address] [place] [address] Unavailable 2 ALEXANDRA [place], [place] Unavailable 3 Personal Relationship [address] [place] [address] Unavailable ALEXANDRA LENNON ROBBIE [place] Unavail able 1 [address]OGDAN [address] [place] [address] Unavailable Andie Pagan Sister [address] [place] [address] [address] [place] [address] Unavailable 2 BOGDAN [address] [place] [address] Unavailable PEKAR, JAYME O [address] [place] [address] Unavailable [address] [place] [address] Unavailable PEKAR, JAYME PAR 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 Name Role Phone Eda Arthur Primary Care Physician [phone] RASHARD GARCIA Attending Clinician Unavailable Eda Arthur Attending Clinician Unavailable NATE LOPEZ Attending Clinician Unavailable CESAR CAMARILLO Attending Clinician UnavailBrett Hood MD Attending Clinician [phone] BRETT POLANCO Attending Clinician Unavailable Lab, Ang - Db Attending Clinician Unavailable Rm2, Adc Surg Proc Attending Clinician Unavailab le Doctor Unassigned, Reedley Attending Clinician U KENZIE Watkins Attending Clinician Unavailab Kenzie Jarquin DO Attending Clinician [phone] MD WILLIAN Attending Clinician Unavailab jalyn LAB90 Attending Clinician Unavailable Collins Myrick RN Attending Clinician Unavailab FIOR Long Attending Clinician Unavailable Fior Ibarra PA-C Attending Clinician [phone] Unknown, Attending Attending Clinician Unavailab Penelope Norris Attending Clinician [phone] PENELOPE DAVIS Attending Clinician Unavailable CRISPIN CARRION Attending Clinician Unavailable JAEL ESCOBAR Attending Clinician Unavaila ayse ADORNO, EUSEBIO Attending Clinician Unavaila ayse PL, TECH 1 Attending Clinician Unavailable ERICKA HALE Attending Clinician UnaGEORGE Chang Attending Clinician Unavailable NICCI KNAPP Attending Clinician UnavailNate Blevins DO Attending Clinician [phone] FADUMO RAM Attending Clinician UnavailALAINA Saravia Attending Clinician Unabear rosario LAB39 Attending Clinician Unavailable Axel GARCIA, Eusebio Attending Clinician +- [phone] RAMON LINDA Attending Clinician Unavailab RONALD Oscar Attending Clinician Unavailable RADIOLOGY, DEPT Attending Clinician Unavailable WILLIAMS Attending Clinician Unavailable ROSE Attending Clinician Unavailable Opal Trotter Attending Clinician [phone] Isabel Chicas MD Attending Clinician [phone] ISABEL CHICAS Attending Clinician UnavailXena Kumar MD Attending Clinician Carlos Victor MD Attending Clinician [phone] Sandy Paredes NP Attending Clinician [phone] SANDY PAREDES Attending Clinician Unavailable Pob, Adc Lab Main Attending Clinician UnavailBRETT Malik Admitting Clinician Unavailable Brett Polanco MD Admitting Clinician [phone] KENZIE [place] Admitting Clinician Unavailab jalyn VOGEL Admitting Clinician Unavailable ROSE Admitting Clinician Unavailable SANDY PAREDES Admitting Clinician Unavailable Payers Payer Name Policy Type Policy Number Effective Date Expirati on Date Source [facility] [id number] 2020 00:00:00 [place] [address] DEGREE BENEFIT 2 [id number] 2021 00:00:00 TSHBP 90 DEGREE AND BENEFITS [id number] 2021 00:00:00 TRS BLUE ESSENTIALS CAPITATED PRIMARY 9 [id number] 2021 00:00:00 BLUE ESSENTIALS HMO [id number] 00:00:00 BCBS-ESSENTIALS 2 [id number] 2021 00:00:00 Problems Condition Name Condition Details Condition Category Status Onset Date Resolution Date Last Treatment Date Treating Clinician Comments Source Morbid obesity with body mass index of 50 or higher Morbid obesity with body mass index of 50 or higher Disease Active 15 00:00: 00 [facility] TYREL (acute kidney injury) TYREL (acute kidney injury) Disease Active 06-05 00:00: 00 [facility] 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 Disease Active 06-05 00:00: 00 [facility] Urinary tract infection without hematuria, site unspecifie d Urinary tract infection without hematuria, site unspecifie d Disease Active 06-05 00:00: 00 [facility] TYREL (acute kidney injury) TYREL (acute kidney injury) Disease Active 06-05 00:00: 00 [facility] Prediabete s Prediabete s Disease Active 11-22 00:00: 00 Sintia Baugh - Jessicaa donna Morbid obesity with BMI of 50.0-59.9, adult Morbid obesity with BMI of 50.0-59.9, adult Disease Active 11-22 00:00: 00 Sintia Baugh - Externa l Gastroesop hageal reflux disease without esophagiti s Gastroesop hageal reflux disease without esophagiti s Disease Active 2021-04 00:00: 00 Sintia Bauhg - Externa l Generalize d edema Generalize d edema Disease Active 11-24 00:00: 00 Sintia Baugh - Externa l CHARLOTTE (obstructi ve sleep apnea) [place]TE (obstructi ve sleep apnea) Disease Active 11-24 00:00: 00 Sintia Baugh - Externa donna Other insomnia Other insomnia Disease Active 11-24 00:00: 00 Sintia Baugh - Externa donna Attention deficit hyperactiv ity disorder (ADHD), 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 ity disorder (ADHD), predominan tly inattentiv e type Disease Active 11-24 00:00: 00 Sintia Baugh - Externa donna Acquired hypothyroi dism Acquired hypothyroi dism Disease Active 11-10 00:00: 00 Sintia Baugh - Externa donna Hyperparat hyroidism (multi HCC) Hyperparat hyroidism (multi HCC) Disease Active 11-10 00:00: 00 Sintia Baugh - Externa donna History of laparoscop ic adjustable gastric banding History of laparoscop ic adjustable gastric banding Disease Active 11-10 00:00: 00 Sintia Quezada Externa donna Insomnia Insomnia Problem Active 05-19 00:00: 00 [facility] Gastroesop hageal reflux disease Gastroesop hageal Reflux Disease Problem Active 05-19 00:00: 00 [facility] Hyperlipid emia Hyperlipid emia Problem Active 05-07 00:00: 00 [facility] Disorder of joint of ankle and/or foot Disorder of Joint of Ankle And/or Foot Problem Active 09-20 00:00: 00 [facility] Hypothyroi dism Hypothyroi dism Problem Active 05-06 00:00: 00 [facility] Anxiety Anxiety Problem Active 05-06 00:00: 00 [facility] Chronic depression Chronic Depression Problem Active 05-06 00:00: 00 [facility] Cardiac arrhythmia Cardiac Arrhythmia Problem Active 05-06 00:00: 00 [facility] Sleep apnea Sleep Apnea Problem Active 05-06 00:00: 00 [facility] Chronic recurrent streptococ eder erysipelas Chronic recurrent streptococ eder erysipelas Disease Active 1-14 00:00: 00 [facility] No known active problems No known active problems Disease Sintia Baugh Allergies, Adverse Reactions, Alerts Allergy Name Allergy Type Status Severity Reaction(s) Onset Date Inactive Date Treating Clinician Comments Source Trazodon e Propensi ty to adverse reaction s Active PALPITATIONS 05-14 00:00: 00 irritatio n Sintia Sheridanold - Externa l Tramadol Propensi ty to adverse reaction s Active Other - See comments 05-14 00:00: 00 irritatio n [facility] TRAMADOL DRUG INGREDI Active Other-Cmnt 05-14 00:00: 00 [facility] TRAZODON E DRUG INGREDI Active Palpitations 05-14 00:00: 00 [facility] Pineappl e Propensi ty to adverse reaction s Active 11-11 00:00: 00 Other reaction( s): Hives/Sushant h Sintia Baugh - Externa l PINEAPPL E DRUG INGREDI Active Hives 11-11 00:00: 00 [facility] Pineappl e Propensi ty to adverse reaction s Active Hives 11-11 00:00: 00 Other reaction( s): blisters [facility] Tramadol Propensi ty to adverse reaction s Active 4-13 00:00: 00 Other reaction( s): MENTAL STATUS CHANGEOth er reaction( s): anger Sintia Quezada Externa l Tramadol Allergy to substanc e Active [facility] Social History Social Habit Start Date Stop Date Quantity Comments Source Gender identity 2021-09-27 08:39:31 Identifies as female gender (finding) Sintia Baugh - External History SDOH Alcohol Frequency Sintia pickard - External History SDOH Alcohol Std Drinks Sintia ge - External History SDOH Alcohol Binge Sintia Baugh - External History of tobacco use Smokes tobacco daily [facility] Social function 2023-06-07 00:00:00 2023-06-07 00:00:00 [facility] Tobacco use and exposure 2023-06-06 00:00:00 2023-06-06 00:00:00 Smokeless tobacco non-user [facility] Alcohol intake 2023-04-09 00:00:00 2023-04-09 00:00:00 Current drinker of alcohol (finding) Sintia Baugh - External Exposure to SARS-CoV-2 (event) 2021-11-01 00:00:00 2021-11-11 15:44:00 Not sure [facility] Cigarettes smoked current (pack per day) - Reported 2021-11-10 00:00:00 2021-11-10 00:00:00 Sintia Baugh - [place] Cigarette pack-years 2021-11-10 00:00:00 2021-11-10 00:00:00 Sintia Baugh - [place] Education - What is the highest level of school you have completed or the highest degree you have received? 2021-11-10 00:00:00 2021-11-10 00:00:00 Bachelor's degree (e.g., BA, AB, BS) Sintia Baugh - [place] Alcohol Comment 2021-10-25 00:00:00 2021-10-25 00:00:00 Occasionally Sintia Baugh - [place] Sex Assigned At 1970 00:00:00 1970 00:00:00 F Sintia Baugh - [place] Smoking Status Start Date Stop Date Source Tobacco smoking consumption unknown [facility] Ex-smoker 2021-11-10 00:00:00 2021-11-10 00:00:00 Sintia Baugh - [place] Smokes tobacco daily 2019-06-18 00:00:00 [facility] Medications Ordered Medication Name Filled Medication Name Start Date Stop Date Current Medication? Ordering Clinician Indication Dosage Frequency Signature (SIG) Comments Components Source iopamidol (ISOVUE 370-500 mL) injection 100 mL 06-25 23:45: 00 06-25 22:57 :00 No [id number] 100mL 100 mL, Intravenou s, ONCE, 1 dose, On Sun06/26/23 at 1745, [facility] t[facility] 0.4 mg 24 hr capsule 305 00:00: 00 07-10 04:59 :00 No [id number] .4mg Take 1 capsule by mouth in the morning for 14 days. [facility] cephALEXin 250 mg capsule 305 00:00: 00 07-01 04:59 :00 No [id number] 500mg Take 2 capsules by mouth every 12 (twelve) hours for 5 days. [facility] gentamicin injection 80 mg 06-13 22:30: 00 06-13 21:39 :00 No [id number] 80mg [facility] furosemide 20 mg tablet 06-13 15:22: 28 Yes 20mg Take 1 tablet by mouth in the morning. [facility] dextroamphe tamine-amph etamine (ADDERALL) 10 mg tablet 06-13 15:07: 18 Yes 10mg Take 1 tablet by mouth in the morning and 1 tablet in the evening. [facility] HYDROmorphO ne (DILAUDID) injection 0.2 mg 06-07 19:41: 16 Yes .2mg 0.2 mg, Slow IV Push, Q5MIN PRN, 10 doses, Starting on Maria Isabel 06/07/23 at 1341, Until Discontinu ed, Routine, Pain (scale 7-10), PACU
Us e approved by (Faculty): PACU USE -ANESTHESI A SERVICE-HY DROMORPHON E INJECTIONS [facility] FENTanyl PF (SUBLIMAZE (PF)) injection 25 mcg 06-07 19:41: 16 Yes 25ug 25 mcg, Slow IV Push, Q5MIN PRN, 4 doses, Starting on Maria Isabel 06/07/23 at 1341, Until Discontinu ed, Routine, Pain (scale 4-6), PACU [facility] ondansetron (ZOFRAN (PF)) injection 4 mg 06-07 19:24: 20 Yes 4mg 4 mg, Slow IV Push, Q4HPRN, 1 dose, Starting on Maria Isabel 06/07/23 at 1324, Until Discontinu ed, Routine, Nausea and Vomiting (N/V), DSU Recovery [facility] lactated ringers IV infusion 1,000 mL 06-07 18:45: 00 Yes 1000mL at 75 mL/hr, 1,000 mL, IV Infusion, CONTINUOUS , Starting on Maria Isabel 06/07/23 at 1245, Until Discontinu ed, Routine, PACU [facility] ondansetron (ZOFRAN (PF)) injection 4 mg 06-07 18:31: 35 Yes 4mg 4 mg, Slow IV Push, PRN, 1 dose, Starting on Maria Isabel 06/07/23 at 1231, Until Discontinu ed, Routine, Nausea and Vomiting (N/V), PACU [facility] FENTanyl PF (SUBLIMAZE (PF)) injection 25 mcg 06-07 18:31: 35 06-07 19:22 :00 No 25ug 25 mcg, Slow IV Push, Q5MIN PRN, 4 doses, Starting on Maria Isabel 06/07/23 at 1231, Until Discontinu ed, Routine, Pain (scale 4-6), PACU [facility] lidocaine (XYLOCAINE) 2 % jelly URO-JET 06-07 17:51: 00 Yes PRN, Starting on Maria Isabel 06/07/23 at 1151, Until Discontinu ed, Routine, Intra-op [facility] iohexoL (OMNIPAQUE 300-50 mL)) injection 06-07 16:55: 00 Yes PRN, Starting on Maria Isabel 06/07/23 at 1055, Until Discontinu ed, Routine, Intra-op [facility] sodium chloride 0.9 % irrigation solution 06-07 16:48: 00 Yes PRN, Starting on Maria Isabel 06/07/23 at 1048, Until Discontinu ed, Intra-op [facility] albuterol 90 mcg/actuati on inhaler 06-07 15:38: 37 Yes albuterol sulfate HFA 90 mcg/actuat ion aerosol inhaler Inhale 2 puffs every 6 hours by inhalation route as needed for 30 days. [facility] gabapentin 300 mg capsule 06-07 15:38: 37 Yes gabapentin 300 mg capsule [facility] montelukast 10 mg tablet 06-07 15:38: 37 Yes montelukas t 10 mg tablet [facility] vortioxetin e (TRINTELLIX ) 10 mg Tab 06-07 15:38: 37 Yes Trintellix 10 mg tablet [facility] dextroamphe tamine-amph etamine (ADDERALL) 10 mg tablet 06-07 15:38: 37 Yes 10mg Take 1 tablet by mouth in the morning and 1 tablet in the evening. [facility] furosemide 20 mg tablet 06-07 15:38: 37 Yes 20mg Take 1 tablet by mouth in the morning. [facility] lactated ringers IV infusion 1,000 mL 06-07 14:45: 00 06-07 14:47 :00 No 1000mL at 42 mL/hr, 1,000 mL, IV Infusion, ONCE, 1 dose, On Maria Isabel 06/07/23 at 0845, Routine, DSU Pre-op [facility] albuterol 90 mcg/actuati on inhaler 06-07 08:29: 03 Yes albuterol sulfate HFA 90 mcg/actuat ion aerosol inhaler Inhale 2 puffs every 6 hours by inhalation route as needed for 30 days. [facility] gabapentin 300 mg capsule 06-07 08:29: 03 Yes gabapentin 300 mg capsule [facility] montelukast 10 mg tablet 06-07 08:29: 03 Yes montelukas t 10 mg tablet [facility] vortioxetin e (TRINTELLIX ) 10 mg Tab 06-07 08:29: 03 Yes Trintellix 10 mg tablet [facility] dextroamphe tamine-amph etamine (ADDERALL) 10 mg tablet 06-07 08:29: 03 Yes 10mg Take 1 tablet by mouth in the morning and 1 tablet in the evening. [facility] furosemide 20 mg tablet 06-07 08:29: 03 Yes 20mg Take 1 tablet by mouth in the morning. [facility] oxyBUTYnin chloride 5 mg tablet 06-07 00:00: 00 Yes [id number] 5mg Take 1 tablet by mouth in the morning and 1 tablet in the evening. [facility] tamsulosin 0.4 mg 24 hr capsule 06-07 00:00: 00 06-25 00:00 :00 No [id number] .4mg Take 1 capsule by mouth in the morning. [facility] albuterol 90 mcg/actuati on inhaler 06-05 10:58: 31 Yes albuterol sulfate HFA 90 mcg/actuat ion aerosol inhaler Inhale 2 puffs every 6 hours by inhalation route as needed for 30 days. [facility] gabapentin 300 mg capsule 06-05 10:58: 31 Yes gabapentin 300 mg capsule [facility] dextroamphe tamine-amph etamine (ADDERALL) 10 mg tablet 06-05 10:58: 31 Yes 10mg Take 1 tablet by mouth in the morning and 1 tablet in the evening. [facility] furosemide 20 mg tablet 06-05 10:58: 31 Yes 20mg Take 1 tablet by mouth in the morning. [facility] FENTanyl PF (SUBLIMAZE (PF)) injection 50 mcg 06-02 09:15: 06-02 08:24 :00 No 50ug 50 mcg, Slow IV Push, ONCE, 1 dose, On 06/02/23 at 0315, Routine [facility] tamsulosin (FLOMAX) capsule 0.4 mg 06-02 09:15: 06-02 08:24 :00 No .4mg 0.4 mg, Oral, ONCE, 1 dose, On 06/02/23 at 0315, Routine [facility] cefTRIAXone (ROCEPHIN) 1,000 mg in NaCl 0.9% (NS) 100 mL MINI-BAG 06-02 08:15: 06-02 08:47 :00 No 1000mg 1,000 mg, IV Piggyback, ONCE, 1 dose, On 06/02/23 at 0215, Administer over 30 Minutes, 100 mL
Reas on for Anti-Infec tive: Documented Infection< br>Documen fallon Infection Site: Urine
D uration of Therapy: 7 days [facility] NaCl 0.9% (NS) bolus infusion 1,000 mL 06-02 07:00: 00 06-02 07:31 :00 No 1000mL at 999 mL/hr, 1,000 mL, IV Infusion, ONCE, 1 dose, On 06/02/23 at 0100, NEHA [facility] FENTanyl PF (SUBLIMAZE (PF)) injection 50 mcg 06-02 07:00: 00 06-02 06:31 :00 No 50ug 50 mcg, Slow IV Push, ONCE, 1 dose, On 06/02/23 at 0100, Routine [facility] ketorolac (TORADOL) injection 30 mg 06-02 07:00: 00 06-02 06:31 :00 No 30mg 30 mg, Slow IV Push, ONCE, 1 dose, On 06/02/23 at 0100, Routine [facility] ondansetron (ZOFRAN (PF)) injection 4 mg 06-02 06:15: 00 06-02 06:32 :00 No 4mg 4 mg, Slow IV Push, ONCE, 1 dose, On 06/02/23 at 0015, NEHA [facility] acetaminoph en-codeine 300-30 mg tablet 06-02 03:28: 06-02 00:00 :00 No acetaminop hen 300 mg-codeine 30 mg tablet [facility] ondansetron 4 mg tablet 06-02 03:28: 01 06-02 00:00 :00 No ondansetro n HCl 4 mg tablet [facility] promethazin e-dextromet horphan 6.25-15 mg/5 mL syrup 06-02 03:28: 01 06-02 00:00 :00 No promethcarole ne-DM 6.25 mg-15 mg/5 mL oral syrup [facility] ketorolac 10 mg tablet 06-02 00:00: 00 Yes [id number] 10mg Take 1 tablet by mouth every 6 (six) hours as needed for Pain (scale 1-3). [facility] cefpodoxime 100 mg tablet 06-02 00:00: 00 06-10 05:59 :00 No [id number] 100mg Take 1 tablet by mouth in the morning and 1 tablet in the evening. Do all this for 7 days. [facility] tamsulosin 0.4 mg 24 hr capsule 06-02 00:00: 00 06-07 00:00 :00 No [id number] .4mg Take 1 capsule by mouth at bedtime. [facility] Albuterol HFA 108 (90 Base) MCG/ACT IN AERS 2022-04 09:30: 21 Yes 2{puff} 2 puffs every 6 (six) hours. Sintia thompson Amphetamine -Dextroamph etamine (ADDERALL, 10MG,) 10 MG oral Tablet 2022-04 00:00: 00 Yes [id number] 10mg Take 1 tablet (10 mg total) by mouth 2 times daily. Sintia thompson cefTRIAXone (ROCEPHIN) injection 1,000 mg 2022-04 21:30: 00 03-28 20:48 :00 No [id number] 1000mg [facility] amoxicillin 500 mg capsule 2022-04 14:38: 03 03-28 00:00 :00 No amoxicilli n 500 mg capsule [facility] amoxicillin -pot clavulanate 500 mg 500-125 mg tablet 2022-04 14:38: 03 03-28 00:00 :00 No amoxicilli n 500 mg-potassi um clavulanat e 125 mg tablet [facility] cefdinir 300 mg capsule 2022-04 00:00: 00 04-05 05:59 :00 No [id number] 300mg Take 1 capsule by mouth every 12 (twelve) hours for 7 days. [facility] dexamethaso ne (DECADRON) injection 10 mg 2022-04 00:15: 00 03-26 23:17 :00 No [id number] 10mg [facility] ketorolac (TORADOL) injection 30 mg 2022-04 00:00: 00 03-26 23:15 :00 No [id number] 30mg [facility] montelukast 10 mg tablet 2022-04 16:50: 58 Yes montelukas t 10 mg tablet [facility] ondansetron 4 mg tablet 2022-04 16:50: 58 Yes ondansetro n HCl 4 mg tablet [facility] vortioxetin e (TRINTELLIX ) 10 mg Tab 2022-04 16:50: 58 Yes Trintellix 10 mg tablet [facility] dextroamphe tamine-amph etamine (ADDERALL) 10 mg tablet 2022-04 16:50: 58 Yes 10mg Take 1 tablet by mouth in the morning and 1 tablet in the evening. [facility] furosemide 20 mg tablet 2022-04 16:50: 58 Yes 20mg Take 1 tablet by mouth in the morning. [facility] methocarbam oL (ROBAXIN-75 0) 750 mg tablet 2022-04 00:00: 00 04-06 05:59 :00 No [id number] 750mg Take 1 tablet by mouth 4 (four) times daily for 10 days. [facility] meloxicam (MOBIC) 15 mg tablet 2022-04 00:00: 00 04-06 05:59 :00 No [id number] 15mg Take 1 tablet by mouth in the morning for 10 days. [facility] Furosemide (LASIX) 20 MG oral Tablet 2022-04 0-05 00:00: 00 Yes [id number] 20mg QD TAKE 1 TABLET BY MOUTH EVERY DAY NEEDED Sintia thompson Albuterol HFA 108 (90 Base) MCG/ACT IN [facility]ERS 01-03 16:19: 00 Yes 2{puff} 2 puffs every 6 (six) hours. Sintia thompson Amphetamine -Dextroamph etamine (ADDERALL, 10MG,) 10 MG oral Tablet 01-03 00:00: 00 Yes [id number] 10mg Take 1 tablet (10 mg total) by mouth 2 times daily. Sintia thompson Furosemide (LASIX) 20 MG oral Tablet 01-03 00:00: 00 Yes [id number] 20mg QD Take 1 tablet (20 mg total) by mouth daily as needed. Sintia thompson Metformin HCl 500 MG oral Tablet 11-23 00:00: 00 Yes [id number] 500mg Take 1 tablet (500 mg total) by mouth daily (with breakfast) Sintia thompson Semaglutide -HUSSEIN-[place]alton ght Management 0.25 MG/0.5ML Subcutaneou s Solution Auto-inject or 11-22 00:00: 00 Yes [id number] .25mg Inject 0.25 mg into the skin once a week Sintia thompson Amphetamine -Dextroamph etamine (ADDERALL, 10MG,) 10 MG oral Tablet 11-22 00:00: 00 Yes [id number] 10mg Take 1 tablet (10 mg total) by mouth 2 times daily Sintia thompson IPRATROPIUM BROMIDE IN 10-18 10:34: 01 10-18 00:00 :00 No Inhale into the lungs Sintia thompson Naproxen 250 MG oral Tablet 10-18 10:33: 10 10-18 00:00 :00 No 250mg Take 250 mg by mouth in the morning and 250 mg in the evening. Take with meals. Sintia thompson Albuterol HFA 108 (90 Base) MCG/ACT IN AERS 10-18 10:17: 08 Yes 2{puff} 2 puffs every 6 (six) hours Sintia thompson Levothyroxi ne Sodium 50 MCG oral Tablet 10-18 00:00: 00 Yes [id number] 50ug Take 1 tablet (50 mcg total) by mouth daily Sintia thompson Amphetamine -Dextroamph etamine (ADDERALL, 10MG,) 10 MG oral Tablet 10-18 00:00: 00 11-18 04:59 :00 No [id number] 10mg Take 1 tablet (10 mg total) by mouth daily Sintia thompson IPRATROPIUM BROMIDE IN 09-25 11:02: 54 Yes Inhale into the lungs Sintia thompson Benzonatate 200 MG oral Capsule 09-02 00:00: 00 Yes 200mg [id number] 3D Take 1 capsule (200 mg total) by mouth 3 times daily as needed Sintia thompson Albuterol HFA 108 (90 Base) MCG/ACT IN [facility] 2021-04 11:03: 37 Yes 2{puff} 2 puffs every 6 (six) hours Sintia thompson Naproxen 250 MG oral Tablet 2021-04 11:03: 37 Yes 250mg Take 250 mg by mouth in the morning and 250 mg in the evening. Take with meals. Sintia thompson Amphetamine -Dextroamph etamine (ADDERALL, 10MG,) 10 MG oral Tablet 2021-04 00:00: 00 10-18 00:00 :00 No [id number] 10mg Take 1 tablet (10 mg total) by mouth daily Sintia thompson Pantoprazol e Sodium 40 MG oral Tablet Delayed Response 2021-04 00:00: 00 10-18 00:00 :00 No [id number] 40mg Take 1 tablet (40 mg total) by mouth daily Sintia thompson Esomeprazol e Magnesium (NexIUM) 20 MG oral Delayed Release Capsule 2021-04 00:00: 00 04-11 00:00 :00 No [id number] 20mg Take 1 capsule (20 mg total) by mouth every morning (before breakfast) Sintia thompson Furosemide 20 MG oral Tablet 2021-04 00:00: 00 01-03 00:00 :00 No [id number] TAKE 1 TABLET BY MOUTH EVERY DAY Sintia thompson Amphetamine -Dextroamph etamine (ADDERALL, 10MG,) 10 MG oral Tablet 01-17 00:00: 00 04-11 00:00 :00 No [id number] 10mg Take 1 tablet (10 mg total) by mouth daily Sintia thompson Pantoprazol e Sodium 40 MG oral Tablet Delayed Response 01-04 00:00: 00 04-11 00:00 :00 No 40mg Take 40 mg by mouth daily Sintia thompson Calcium Carbonate Antacid 500 MG oral Chewable Tablet 12-12 00:00: 00 Yes 500mg Take 1 tablet (500 mg total) by mouth 2 times daily Sintia thompson Levothyroxi ne Sodium 50 MCG oral Tablet 12-12 00:00: 00 10-18 00:00 :00 No 50ug Take 1 tablet (50 mcg total) by mouth daily Sintia thompson Albuterol HFA 108 (90 Base) MCG/ACT IN AERS 09-23 11:03: 33 Yes 2{puff} 2 puffs every 6 (six) hours Sintia Baugh Esomeprazol e Magnesium 20 MG oral Delayed Release Capsule 09-23 11:03: 33 Yes esomeprazo le magnesium 20 mg capsule,de layed release TK 1 C PO BID UTD Sintia Baugh Dicyclomine HCl 20 MG oral Tablet 09-09 00:00: 00 Yes Sintia Baugh Levothyroxi ne Sodium 25 MCG oral Tablet 08-09 00:00: 00 Yes TAKE 1 TABLET BY MOUTH EVERY DAY IN THE MORNING ON EMPTY STOMACH FOR 30 DAYS Sintia Baugh Cholecalcif marcia (Vitamin D3) 1.25 MG (47649 UT) oral Capsule 07-11 00:00: 00 Yes TAKE 1 CAPSULE BY MOUTH ONCE A WEEK FOR 90 DAYS Sintia Baugh diclofenac 75 mg EC tablet 11-15 00:00: 00 12-16 04:59 :00 No 75mg Take 1 tablet by mouth 2 (two) times daily with meals for 30 days. [facility] promethazin e-dextromet horphan 6.25-15 mg/5 mL syrup 06-18 22:17: 45 Yes promethazi ne-DM 6.25 mg-15 mg/5 mL oral syrup [facility] vortioxetin e (TRINTELLIX ) 10 mg Tab 06-18 22:17: 45 Yes Trintellix 10 mg tablet [facility] albuterol 90 mcg/actuati on inhaler 06-18 22:17: 44 Yes albuterol sulfate HFA 90 mcg/actuat ion aerosol inhaler Inhale 2 puffs every 6 hours by inhalation route as needed for 30 days. [facility] amoxicillin 500 mg capsule 06-18 22:17: 44 Yes amoxicilli n 500 mg capsule [facility] amoxicillin -pot clavulanate 500 mg 500-125 mg tablet 06-18 22:17: 44 Yes amoxicilli n 500 mg-potassi um clavulanat e 125 mg tablet [facility] gabapentin 300 mg capsule 06-18 22:17: 44 Yes gabapentin 300 mg capsule [facility] montelukast 10 mg tablet 06-18 22:17: 44 Yes montelukas t 10 mg tablet [facility] ondansetron 4 mg tablet 06-18 22:17: 44 Yes ondansetro n HCl 4 mg tablet [facility] acetaminoph en-codeine 300-30 mg tablet 06-18 22:17: 43 Yes acetaminop hen 300 mg-codeine 30 mg tablet [facility] promethazin e-dextromet horphan 6.25-15 mg/5 mL syrup 06-18 16:17: 45 Yes promethazi ne-DM 6.25 mg-15 mg/5 mL oral syrup [facility] vortioxetin e (TRINTELLIX ) 10 mg Tab 06-18 16:17: 45 Yes Trintellix 10 mg tablet [facility] albuterol 90 mcg/actuati on inhaler 06-18 16:17: 44 Yes albuterol sulfate HFA 90 mcg/actuat ion aerosol inhaler Inhale 2 puffs every 6 hours by inhalation route as needed for 30 days. [facility] amoxicillin 500 mg capsule 06-18 16:17: 44 Yes amoxicilli n 500 mg capsule [facility] amoxicillin -pot clavulanate 500 mg 500-125 mg tablet 06-18 16:17: 44 Yes amoxicilli n 500 mg-potassi um clavulanat e 125 mg tablet [facility] gabapentin 300 mg capsule 06-18 16:17: 44 Yes gabapentin 300 mg capsule [facility] montelukast 10 mg tablet 06-18 16:17: 44 Yes montelukas t 10 mg tablet [facility] ondansetron 4 mg tablet 06-18 16:17: 44 Yes ondansetro n HCl 4 mg tablet [facility] acetaminoph en-codeine 300-30 mg tablet 06-18 16:17: 43 Yes acetaminop hen 300 mg-codeine 30 mg tablet [facility] azithromyci n 250 mg tablet 06-13 00:00: 00 06-02 00:00 :00 No [id number] 250mg Take 1 tablet by mouth daily. Take 500 mg day 1, then 250 mg days 2 to 5. [facility] benzonatate (TESSALON PERLES) 100 mg capsule 06-13 00:00: 00 06-02 00:00 :00 No [id number] 100mg Take 1 capsule by mouth 3 (three) times daily as needed for Cough. [facility] predniSONE 20 mg tablet 06-13 00:00: 06-19 05:59 :00 No [id number] 40mg Take 2 tablets by mouth daily for 5 days. [facility] ketorolac (TORADOL) injection 30 mg 16 03:00: 00 06-08 02:13 :00 No 30mg 30 mg, Intramuscu lar, ONCE, 1 dose, 06/07/19 at 2100, NEHA
[facility] SANDY PAREDES [facility] ketorolac 10 mg tablet 06-07 00:00: 00 06-02 00:00 :00 No [id number] 9100 10mg Take 1 tablet by mouth every 6 (six) hours as needed for Pain (scale 1-3). [facility] esomeprazol e 20 mg capsule 05-19 00:00: 00 Yes TK 1 C PO BID UTD [facility] celecoxib (CELEBREX) 200 mg capsule 05-14 00:00: 00 06-02 00:00 :00 No [id number] 4102 200mg Take 1 capsule by mouth daily. [facility] naproxen 500 mg tablet 05-07 00:00: 00 06-02 00:00 :00 No TK 1 T PO Q 12 H UTD [facility] diclofenac 75 mg EC tablet 12-18 00:00: 00 06-07 00:00 :00 No 75mg Take 1 tablet by mouth 2 (two) times daily with meals. [facility] methylPREDN ISolone (MEDROL, RITESH,) 4 mg tablets 11-22 00:00: 00 06-07 00:00 :00 No Take by mouth SEE-INSTRU CTIONS. follow package directions [facility] ondansetron (ZOFRAN) 4 mg tablet 10-18 00:00: 00 06-07 00:00 :00 No 8mg Take 2 tablets by mouth every 12 (twelve) hours. [facility] DICLOFENAC 75 mg EC tablet 09-13 00:00: 00 06-07 00:00 :00 No TAKE 1 TABLET BY MOUTH TWICE DAILY WITH MEALS [facility] rosuvastati n 5 mg tablet 09-11 00:00: 00 Yes [facility] ARIPiprazol e 5 mg tablet 09-03 00:00: 00 Yes TK 1 T PO HS [facility] DULoxetine 60 mg capsule 09-03 00:00: 00 Yes TK 1 C PO QAM [facility] ibuprofen 800 mg tablet 2016-04 00:00: 00 06-07 00:00 :00 No 800mg Take 1 tablet by mouth every 8 (eight) hours. [facility] naproxen 500 mg tablet 11-01 00:00: 00 06-07 00:00 :00 No [facility] VYVANSE 70 mg capsule 10-03 00:00: 00 Yes TK 1 C PO QAM FOR ADD [facility] Diclofenac Sodium (VOLTAREN) 1 % gel 2015-04 00:00: 00 06-02 00:00 :00 No ANNA TOPICALLY TO BOTH KNEES BID UTD [facility] acetaminoph en-codeine (TYLENOL #3) 300-30 mg tablet 2015-04 00:00: 00 06-07 00:00 :00 No TK 1 TO 2 TS PO Q 4 TO 6 H PRN P. [facility] levothyroxi ne (SYNTHROID) 100 mcg tablet 01-17 00:00: 00 Yes TK 1 T PO QAM [facility] diazepam (VALIUM) 5 mg tablet 01-17 00:00: 00 06-02 00:00 :00 No TK 1 T PO QPM. [facility] zolpidem (AMBIEN) 10 mg tablet 01-17 00:00: 00 06-02 00:00 :00 No TK 1 T PO HS. [facility] hydroxychlo roquine 200 mg tablet Take 1 tablet twice a day by oral route as directed for 5 days. hydroxychlo roquine 200 mg tablet Take 1 tablet twice a day by oral route as directed for 5 days. No 1 BID hydroxychl oroquine 200 mg tablet Take 1 tablet twice a day by oral route as directed for 5 days. [facility] ondansetron 4 mg disintegrat ing tablet Place 1 tablet every 4-6 hours by translingua l route as needed for 5 days. ondansetron 4 mg disintegrat ing tablet Place 1 tablet every 4-6 hours by translingua l route as needed for 5 days. No 1 Q5H ondansetro n 4 mg disintegra ting tablet Place 1 tablet every 4-6 hours by translingu al route as needed for 5 days. [facility] prednisone 10 mg tablets in a dose pack Take 1 dose pk by oral route as directed for 6 days. prednisone 10 mg tablets in a dose pack Take 1 dose pk by oral route as directed for 6 days. No 1dose pk(s) prednisone 10 mg tablets in a dose pack Take 1 dose pk by oral route as directed for 6 days. [facility] Vital Signs Vital Name Observation Time Observation Value Comments S ource Systolic blood pressure 2023-06-26 20:11:00 146 mm[Hg] [facility] Diastolic blood pressure 2023-06-26 20:11:00 82 mm[Hg] [facility] Heart rate 2023-06-26 20:11:00 80 /min [facility] Body temperature 2023-06-26 20:11:00 37.44 Shawna [facility] Respiratory rate 2023-06-26 20:11:00 18 /min [facility] Body height 2023-06-26 20:11:00 167.6 cm [facility] Body weight 2023-06-26 20:11:00 149.687 kg [facility] BMI 2023-06-26 20:11:00 53.26 kg/m2 [facility] Oxygen saturation in Arterial blood by Pulse oximetry 2023-06-26 20:11:00 96 /min [facility] Systolic blood pressure 2023-06-13 21:24:00 137 mm[Hg] [facility] Diastolic blood pressure 2023-06-13 21:24:00 71 mm[Hg] [facility] Heart rate 2023-06-13 21:24:00 72 /min Unive [facility] Respiratory rate 2023-06-13 21:20:00 18 /min [facility] Body height 2023-06-13 21:20:00 165.1 cm [facility] Body weight 2023-06-13 21:20:00 152.862 kg [facility] BMI 2023-06-13 21:20:00 56.08 kg/m2 [facility] Systolic blood pressure 2023-06-07 20:55:00 131 mm[Hg] [facility] Diastolic blood pressure 2023-06-07 20:55:00 63 mm[Hg] [facility] Heart rate 2023-06-07 20:55:00 66 /min Unive [facility] Respiratory rate 2023-06-07 20:55:00 23 /min [facility] Oxygen saturation in Arterial blood by Pulse oximetry 2023-06-07 20:55:00 96 /min [facility] Body temperature 2023-06-07 18:27:00 36.33 Shawna [facility] Body height 2023-06-06 14:00:00 167.6 cm [facility] Body weight 2023-06-06 14:00:00 154.677 kg [facility] BMI 2023-06-06 14:00:00 55.04 kg/m2 [facility] Systolic blood pressure 2023-06-07 14:48:00 137 mm[Hg] [facility] Diastolic blood pressure 2023-06-07 14:48:00 66 mm[Hg] [facility] Heart rate 2023-06-07 14:48:00 79 /min Unive [facility] Body temperature 2023-06-07 14:48:00 36.39 Shawna [facility] Respiratory rate 2023-06-07 14:48:00 18 /min [facility] Oxygen saturation in Arterial blood by Pulse oximetry 2023-06-07 14:48:00 98 /min [facility] Body height 2023-06-06 14:00:00 167.6 cm [facility] Body weight 2023-06-06 14:00:00 154.677 kg [facility] BMI 2023-06-06 14:00:00 55.04 kg/m2 [facility] Systolic blood pressure 2023-06-05 17:01:00 150 mm[Hg] [facility] Diastolic blood pressure 2023-06-05 17:01:00 88 mm[Hg] [facility] Heart rate 2023-06-05 17:01:00 69 /min Unive [facility] Oxygen saturation in Arterial blood by Pulse oximetry 2023-06-05 17:01:00 96 /min [facility] Body temperature 2023-06-05 17:00:00 36.5 Shawna [facility] Respiratory rate 2023-06-05 17:00:00 18 /min [facility] Body height 2023-06-05 17:00:00 167.6 cm [facility] Body weight 2023-06-05 17:00:00 15.876 kg [facility] BMI 2023-06-05 17:00:00 5.65 [facility]m2 [facility] Systolic blood pressure 2023-06-02 09:00:00 137 mm[Hg] [facility] Diastolic blood pressure 2023-06-02 09:00:00 75 mm[Hg] [facility] Heart rate 2023-06-02 09:00:00 74 /min Unive [facility] Respiratory rate 2023-06-02 09:00:00 16 /min [facility] Oxygen saturation in Arterial blood by Pulse oximetry 2023-06-02 09:00:00 96 /min [facility] Body temperature 2023-06-02 06:11:00 36.78 Shawna [facility] Body height 2023-06-02 06:11:00 167.6 cm [facility] Body weight 2023-06-02 06:11:00 156.31 kg [facility] BMI 2023-06-02 06:11:00 55.62 kg/m2 [facility] Systolic blood pressure 2023-04-09 15:29:00 141 mm[Hg] Sintia Rodriguezybo ld - External Diastolic blood pressure 2023-04-09 15:29:00 86 mm[Hg] Sintia Rodriguezybo ld - External Heart rate 2023-04-09 15:29:00 82 /min Kel y Seybold - External Body temperature 2023-04-09 15:29:00 37.28 Shawna Sintia Rodriguezybold - External Respiratory rate 2023-04-09 15:29:00 20 /min Sintia Rodriguezybold - External Body height 2023-04-09 15:29:00 167.6 cm Karolina ey Seybold - External Body weight 2023-04-09 15:29:00 154.677 kg Karolina ey Seybold - External BMI 2023-04-09 15:29:00 55.04 kg/m2 Karolina bismark Seybold - External Oxygen saturation in Arterial blood by Pulse oximetry 2023-04-09 15:29:00 99 /min Sintia Sheridano ld - External Systolic blood pressure 2023-03-28 20:13:00 112 mm[Hg] [facility] Diastolic blood pressure 2023-03-28 20:13:00 55 mm[Hg] [facility] Heart rate 2023-03-28 20:13:00 111 /min [facility] Body [facility] 2023-03-28 20:13:00 37.56 Shawna [facility] Respiratory rate 2023-03-28 20:13:00 26 /min [facility] Body height 2023-03-28 20:13:00 167.6 cm [facility] Body weight 2023-03-28 20:13:00 150.594 kg [facility] BMI 2023-03-28 20:13:00 53.59 kg/m2 [facility] Oxygen saturation in Arterial blood by Pulse oximetry 2023-03-28 20:13:00 97 /min [facility] Systolic blood pressure 2023-03-26 22:51:00 136 mm[Hg] [facility] Diastolic blood pressure 2023-03-26 22:51:00 85 mm[Hg] [facility] Heart rate 2023-03-26 22:51:00 85 /min [facility] Body temperature 2023-03-26 22:51:00 37.22 Shawna [facility] Respiratory rate 2023-03-26 22:51:00 19 /min [facility] Body weight 2023-03-26 22:51:00 149.233 kg [facility] BMI 2023-03-26 22:51:00 50.02 kg/m2 [facility] Oxygen saturation in Arterial blood by Pulse oximetry 2023-03-26 22:51:00 98 /min [facility] Systolic blood pressure 2023-01-03 21:18:00 136 mm[Hg] Sintia Seybo ld - External Diastolic blood pressure 2023-01-03 21:18:00 80 mm[Hg] Sintia Seybo ld - External Heart rate 2023-01-03 21:18:00 79 /min Kelse y Seybold - External Body temperature 2023-01-03 21:18:00 37.11 Shawna Sintia Seybold - External Respiratory rate 2023-01-03 21:18:00 20 /min Sintia Seybold - External Body height 2023-01-03 21:18:00 167.6 cm Karolina ey Seybold - External Body weight 2023-01-03 21:18:00 151.048 kg Karolina ey Seybold - External BMI 2023-01-03 21:18:00 53.75 kg/m2 Karolina ey Seybold - External Systolic blood pressure 2022-11-22 18:23:00 120 mm[Hg] Sintia Seybo ld - External Diastolic blood pressure 2022-11-22 18:23:00 75 mm[Hg] Sintia Seybo ld - External Body temperature 2022-11-22 18:23:00 37.22 Shawna Sintia Seybold - External Respiratory rate 2022-11-22 18:23:00 20 /min Sintia Seybold - External Body height 2022-11-22 18:23:00 167.6 cm Karolina ey Seybold - External Body weight 2022-11-22 18:23:00 149.687 kg Karolina ey Seybold - External BMI 2022-11-22 18:23:00 53.26 kg/m2 Karolina ey Seybold - External Oxygen saturation in Arterial blood by Pulse oximetry 2022-11-22 18:23:00 98 /min Sintai Seybo ld - External Systolic blood pressure 2022-10-18 15:08:00 113 mm[Hg] Sintia Seybo ld - External Diastolic blood pressure 2022-10-18 15:08:00 90 mm[Hg] Sintia Seybo ld - External Heart rate 2022-10-18 15:08:00 83 /min Kelse y Seybold - External Body temperature 2022-10-18 15:08:00 36.94 Shawna Sintia Seybold - External Respiratory rate 2022-10-18 15:08:00 18 /min Sintia Seybold - External Body height 2022-10-18 15:08:00 167.6 cm Karolina ey Seybold - External Body weight 2022-10-18 15:08:00 143.427 kg Karolina ey Seybold - External BMI 2022-10-18 15:08:00 51.04 kg/m2 Karolina ey Seybold - External Oxygen saturation in Arterial blood by Pulse oximetry 2022-10-18 15:08:00 96 /min Sintia Seybo ld - External Systolic blood pressure 2022-04-11 16:59:00 123 mm[Hg] Sintia Seybo ld - External Diastolic blood pressure 2022-04-11 16:59:00 76 mm[Hg] Snitia Seybo ld - External Heart rate 2022-04-11 16:59:00 87 /min Kelse y Seybold - External Body temperature 2022-04-11 16:59:00 37.11 Shawna Sintia Seybold - External Respiratory rate 2022-04-11 16:59:00 14 /min Sintia Seybold - External Body height 2022-04-11 16:59:00 167.6 cm Karolina ey Seybold - External Body weight 2022-04-11 16:59:00 134.718 kg Karolina ey Seybold - External BMI 2022-04-11 16:59:00 47.94 kg/m2 Karolina sofia Seybold - External Oxygen saturation in Arterial blood by Pulse oximetry 2022-04-11 16:59:00 99 /min Sintiaines Canas ld - External Body height 2021-09-23 16:03:00 167.6 cm Karolina bismark Seybold Body weight 2021-09-23 16:03:00 124.739 kg Karolina bismark Rodriguezybold BMI 2021-09-23 16:03:00 44.39 kg/m2 Karolina ey Seybold BP Diastolic 2020-11-30 00:00:00 65 mm[Hg] [facility] Height 2020-11-30 00:00:00 67.5 [in_i] [facility] BMI (Body Mass Index) 2020-11-30 00:00:00 42 kg/m2 [facility] BP Systolic 2020-11-30 00:00:00 120 mm[Hg] [facility] Body Weight 2020-11-30 00:00:00 4352 [oz_av] [facility] Body height 2019-06-18 22:16:00 172.7 cm [facility] Body weight 2019-06-18 22:16:00 134.265 kg [facility] BMI 2019-06-18 22:16:00 45.01 kg/m2 [facility] Body height 2019-06-18 22:16:00 172.7 cm [facility] Body weight 2019-06-18 22:16:00 134.265 kg [facility] BMI 2019-06-18 22:16:00 45.01 kg/m2 [facility] Respiratory rate 2019-06-14 01:57:00 17 /min [facility] Body height 2019-06-14 01:57:00 172.7 cm [facility] Body weight 2019-06-14 01:57:00 134.355 kg [facility] BMI 2019-06-14 01:57:00 45.04 kg/m2 [facility] Oxygen saturation in Arterial blood by Pulse oximetry 2019-06-14 01:57:00 96 /min [facility] Systolic blood pressure 2019-06-08 03:00:00 133 mm[Hg] [facility] Diastolic blood pressure 2019-06-08 03:00:00 90 mm[Hg] [facility] Heart rate 2019-06-08 03:00:00 83 /min Unive [facility] Respiratory rate 2019-06-08 03:00:00 19 /min [facility] Oxygen saturation in Arterial blood by Pulse oximetry 2019-06-08 03:00:00 98 /min [facility] Body temperature 2019-06-08 00:31:00 36.78 Shawna [facility] Body height 2019-06-08 00:31:00 170.2 cm [facility] Body weight 2019-06-08 00:31:00 127.007 kg [facility] BMI 2019-06-08 00:31:00 43.85 kg/m2 [facility] Systolic blood pressure 2019-05-21 21:01:00 139 mm[Hg] [facility] Diastolic blood pressure 2019-05-21 21:01:00 82 mm[Hg] [facility] Heart rate 2019-05-21 21:01:00 84 /min [facility] Body height 2019-05-21 21:01:00 172.7 cm Univ [facility] Body weight 2019-05-21 21:01:00 108.41 kg Univ [facility] BMI 2019-05-21 21:01:00 36.34 kg/m2 [facility] Systolic blood pressure 2019-05-14 20:57:00 100 mm[Hg] [facility] Diastolic blood pressure 2019-05-14 20:57:00 65 mm[Hg] [facility] Heart rate 2019-05-14 20:57:00 84 /min Unive [facility] Body temperature 2019-05-14 20:57:00 37.22 Shawna [facility] Body height 2019-05-14 20:57:00 172.7 cm [facility] Body weight 2019-05-14 20:57:00 108.41 kg [facility] BMI 2019-05-14 20:57:00 36.34 kg/m2 [facility] Procedures Procedure Date / Time Performed Performing Clinician Source ASSIGNMENT OF BENEFITS 2023-06-26 21:41:31 Docto r Unassigned, [place] [facility] CONSENT/REFUSAL FOR DIAGNOSIS AND TREATMENT 2023-06-26 21:41:16 Doctor Unassigned, [place] [facility] POCT URINALYSIS AUTO 2023-06-26 20:05:00 Narayan Polanco [facility] LORENZO,POST-VOID RES,US,NON-IMAGING 2023-06-26 00:00:00 Collin [facility] DISCLOSURE AND CONSENT, MEDICAL AND SURGICAL PROCEDURES 2023-06-13 06:01:00 Doctor Unassigned, [place] [facility] POCT URINALYSIS AUTO 2023-06-13 00:00:00 Narayan Polanco [facility] FL TIME OR (NON-REPORTABLE) 2023-06-07 18:16:00 Collin [facility] FL TIME OR (NON-REPORTABLE) 2023-06-07 18:16:00 Collin [facility] URETEROSCOPIC STONE MANIPULATION 2023-06-07 16:06:00 Collin [facility] DAY SURGERY - ADC 2023-06-07 06:01:00 Doctor Mariela ssigned, [place] [facility] INSURANCE CORRESPONDENCE 2023-06-06 06:01:00 Doc tor Unassigned, [place] [facility] INSURANCE CORRESPONDENCE 2023-06-06 06:01:00 Doc tor Unassigned, [place] [facility] POCT URINALYSIS AUTO 2023-06-05 16:01:00 Narayan Polanco [facility] LORENZO,POST-VOID RES,US,NON-IMAGING 2023-06-05 00:00:00 [place] [facility] URINALYSIS 2023-06-02 07:20:00 [facility] WO CONTRAST 2023-06-02 07:16:32 Kenzie Taylor [facility] COMP. METABOLIC PANEL ([id number]) 2023-06-02 06:29:00 Kenzie Taylor [facility] CBC WITH DIFF 2023-06-02 06:29:00 Kenzie Taylor [facility] NOTICE OF PRIVACY PRACTICES 2023-06-02 06:05:58 Doctor Unassigned, [place] [facility] CONSENT/REFUSAL FOR DIAGNOSIS AND TREATMENT 2023-06-02 06:05:16 Doctor Unassigned, [place] [facility] POCT MOLECULAR FLU 2023-03-28 20:24:00 Unknown, Attend ing [facility] POCT URINALYSIS 2023-03-28 20:18:00 Fior Ibarra [facility] ASSIGNMENT OF BENEFITS 2023-03-26 22:25:18 Docto r Unassigned, [place] [facility] ASSIGNMENT OF BENEFITS 2021-11-11 20:47:10 Docto r Unassigned, [place] [facility] XR, chest, 2 view 2020-11-30 00:00:00 [facility] POCT FLU A AND B (MOLECULAR) 2019-06-14 03:15:00 Carlos Victor [facility] XR FOOT 3+ VW RIGHT 2019-06-08 01:54:14 Sandy Paredes [facility] CONSENT/REFUSAL FOR DIAGNOSIS AND TREATMENT 2019-06-08 00:21:30 Doctor Unassigned, [place] [facility] URIC ACID 2019-05-14 22:34:[address] [facility] RHEUMATOID FACTOR 2019-05-14 22:34:00 Isabel Chicas [facility] C-REACTIVE PROTEIN 2019-05-14 22:34:00 Isabel Chicas [facility] SEDIMENTATION RATE 2019-05-14 22:34:00 Isabel Chicas [facility] CBC WITH DIFFERENTIAL 2019-05-14 22:34:00 Ruslan Chicas [facility] STREPTOLYSIN O ANTIBODY (ASO) 2019-05-14 22:34:00 Isabel Chicas [facility] NOTICE OF PRIVACY PRACTICES 2019-05-14 22:18:58 Doctor Unassigned, [place] [facility] CONSENT/REFUSAL FOR DIAGNOSIS AND TREATMENT 2019-05-14 22:18:40 Doctor Unassigned, [place]ley [facility] ASSIGNMENT OF BENEFITS 2019-05-14 22:18:26 Osman hou Unassigned, Reedley [facility] Excision of Ganglion Cyst [facility] Knee Surgery [facility] Appendectomy [facility] Cholecystectomy [facility] Laparoscopic Adjustable Gastric Banding [facility] Partial Hysterectomy [facility] Plan of Care Planned Activity Planned Date Details Comments Source Diagnostic Test Pending 2020-11-30 00:00:00 rapid SARS CoV 2 Ag, QL IA, respiratory specimen [code = rapid SARS CoV 2 Ag, QL IA, respiratory specimen] [facility] Instructions [facility] Encounters Start Date/Time End Date/Time Encounter Type Admission Type Attending Clinicians Care Facility Care Department Encounter ID Source 2021-09-08 13:43:31 Outpatient RASHARD GARCIA [facility] [id number] [facility] 2021-07-07 10:37:01 Outpatient Sharmila Arthura [facility] [id number] [facility] 2021-05-30 11:08:02 Outpatient Sandhya Eda [facility] [id number] [facility] 2021-05-19 07:24:00 Outpatient Sharmila Arthura [facility] [id number] [facility] 2021-05-18 14:59:02 Outpatient SandhyaEda [facility] [id number] [facility] 2023-12-16 00:00:00 2023-12-16 00:00:00 Outpatient NATE LOPEZ [id number] [facility] 2023-09-19 00:00:00 2023-09-19 00:00:00 Outpatient NATE LOPEZ [id number] [facility] 2023-08-31 00:00:00 2023-08-31 00:00:00 Outpatient NATE LOPEZ SINTIA [id number] Sintiaines Baugh 2023-07-18 16:30:00 2023-07-18 16:30:00 Outpatient Lee CESAR CAMARILLO [facility] [id number] [facility] 2023-06-27 00:00:00 2023-06-27 00:00:00 Telephone Joshjabier [facility] 1.840.114 350.1.13.10 4.2.7.2.686 [id number] [facility] 2023-06-26 15:42:42 2023-06-26 23:59:00 [id number] 2023-06-26 15:42:42 2023-06-26 23:59:00 Hospital Encounter [facility] 1.0.114 350.1.13.10 4.2.7.2.686 [id number] [facility] 2023-06-26 14:00:00 2023-06-26 14:25:58 Office Visit [facility]TY [facility] 1.0.114 350.1.13.10 4.2.7.2.686 [id number] [facility] 2023-06-26 13:30:00 2023-06-26 13:45:00 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, Ang - Db [facility] 1.0.114 350.1.13.10 4.2.7.2.686 [id number] [facility] 2023-06-26 00:00:00 2023-06-26 00:00:00 Patient Secure Msg [facility] 1.0.114 350.1.13.10 4.2.7.2.686 [id number] [facility] 2023-06-25 00:00:00 2023-06-25 00:00:00 Telephone Brett Polanco [facility] 1.2840.114 350.1.13.10 4.2.7.2.686 [id number] [facility] 2023-06-13 15:30:00 2023-06-13 16:03:23 Outpatient R BRETT POLANCO [facility] [id number] [facility] 2023-06-13 15:30:00 2023-06-13 16:03:23 Office Visit Brett Polanco Rm2, Adc Surg [facility] 1.2840.114 350.1.13.10 4.2.7.2.686 [id number] [facility] 2023-06-13 00:00:00 2023-06-13 00:00:00 Orders Only Doctor Unassigned, Reedley [facility] 1.2.840.114 350.1.13.10 4.2.7.2.686 [id number] [facility] 2023-06-09 00:00:00 2023-06-09 00:00:00 Telephone Brett Polanco [facility] 1.2840.114 350.1.13.10 4.2.7.2.686 [id number] [facility] 2023-06-07 08:28:00 2023-06-07 15:10:00 Outpatient R BRETT POLANCO [facility] SUU [id number] [facility] 2023-06-07 08:28:00 2023-06-07 15:10:00 Hospital Encounter Brett Polanco [facility] 1.20.114 350.1.13.10 4.2.7.2.686 [id number] [facility] 2023-06-07 09:45:00 2023-06-07 11:39:00 [facility] 1.2.840.114 350.1.13.10 4.2.7.2.686 [id number] [facility] 2023-06-07 00:00:00 2023-06-07 00:00:00 Orders Only Doctor Unassigned, Reedley [facility] 1.2.840.114 350.1.13.10 4.2.7.2.686 [id number] [facility] 2023-06-07 00:00:00 2023-06-07 00:00:00 Telephone Collin [facility] 1.2.840.114 350.1.13.10 4.2.7.2.686 [id number] [facility] 2023-06-07 00:00:00 2023-06-07 00:00:00 Telephone Collin [facility] PRIMARY [facility] SPECIALTY CARE 1.2.840.114 350.1.13.10 4.2.7.2.686 [id number] [facility] 2023-06-05 13:30:00 2023-06-05 13:30:00 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, Ang - [facility] 1.2.840.114 350.1.13.10 4.2.7.2.686 [id number] [facility] 2023-06-05 11:00:00 2023-06-05 11:43:41 Outpatient R COLLIN [facility] [id number] [facility] 2023-06-05 11:00:00 2023-06-05 11:43:41 Office Visit Collin [facility] PR[facility] SPECIALTY CARE 1.2.840.114 350.1.13.10 4.2.7.2.686 [id number] [facility] 2023-06-05 00:00:00 2023-06-05 00:00:00 Telephone Collin [facility] 1.2.840.114 350.1.13.10 4.2.7.2.686 [id number] [facility] 2023-06-02 00:11:00 2023-06-02 03:48:00 Emergency X KENZIE TAYLOR [facility] ERT [id number] [facility] 2023-06-02 00:11:00 2023-06-02 03:48:00 Emergency Kenzie Taylor [facility] 1.2.840.114 350.1.13.10 4.2.7.2.686 [id number] [facility] 2023-05-14 16:30:00 2023-05-14 16:30:00 Outpatient NATE LOPEZ [id number] [facility] 2023-05-09 00:00:00 2023-05-09 00:00:00 Outpatient MD SINTIA RAMIREZ [id number] [facility] 2023-04-30 15:00:00 2023-04-30 15:00:00 Outpatient SINTIA PEREZ [id number] [facility] 2023-04-11 00:00:00 2023-04-11 00:00:00 Outpatient NATE LOPEZ [id number] [facility] 2023-04-10 00:00:00 2023-04-10 00:00:00 Outpatient NATE LOPEZ [id number] [facility] 2023-04-10 00:00:00 2023-04-10 00:00:00 Outpatient NATE LOPEZ [id number] [facility]old 2023-04-10 00:00:00 2023-04-10 00:00:00 Outpatient NATE LOPEZ [id number] Sint[facility] 2023-04-09 10:10:00 2023-04-09 10:10:00 Outpatient LAB90 SINTIA SINTIA [id number] Sintia [facility] 2023-04-09 09:30:00 2023-04-09 09:30:00 Outpatient NATE LOPEZ SINTIA [id number] [facility] 2023-03-30 00:00:00 2023-03-30 00:00:00 Nurse Triage [facility] ..840.114 350.1.13.10 4.2.7.2.686 [id number] [facility] 2023-03-30 00:00:00 2023-03-30 00:00:00 [facility] 1..840.114 350.1.13.10 4.2.7.2.686 [id number] [facility] 2023-03-28 14:00:00 2023-03-28 14:44:13 Outpatient FIOR NARAYANAN [facility] [id number] [facility] 2023-03-28 14:00:00 2023-03-28 14:44:13 Urgent Care Fior Ibarra Unknown, Attending [facility] 1..840.114 350.1.13.10 4.2.7.2.686 [id number] [facility] 2023-03-28 00:00:00 2023-03-28 00:00:00 Outpatient NATE LOPEZ SINTIA [id number] [facility] 2023-03-28 00:00:00 2023-03-28 00:00:00 Telephone Penelope Davis [facility] 1..840.114 350.1.13.10 4.2.7.2.686 [id number] [facility] 2023-03-28 00:00:00 2023-03-28 00:00:00 Telephone [facility] 1.2.840.114 350.1.13.10 4.2.7.2.686 [id number] [facility] 2023-03-26 17:00:00 2023-03-26 17:20:00 Urgent Care Penelope Davis Unknown, Attending [facility] 1.2.840.114 350.1.13.10 4.2.7.2.686 [id number] [facility] 2023-03-26 17:00:00 2023-03-26 17:00:00 Outpatient R PENELOPE DAVIS [facility] [id number] [facility] 2023-03-26 00:00:00 2023-03-26 00:00:00 Orders Only Doctor Unassigned, Reedley [facility] 1.2.840.114 350.1.13.10 4.2.7.2.686 [id number] [facility] 2023-02-02 00:00:00 2023-02-02 00:00:00 Outpatient NATE LOPEZ [id number] [facility] 2023-01-25 00:00:00 2023-01-25 00:00:00 Outpatient NATE LOPEZ [id number] [facility] 2023-01-04 00:00:00 2023-01-04 00:00:00 Outpatient NATE LOPEZ [id number] [facility] 2023-01-03 16:50:00 2023-01-03 16:50:00 Outpatient LAB90 SINTIA PEREZ [id number] [facility] 2023-01-03 16:15:00 2023-01-03 16:15:00 Outpatient PREZASNATE SINTIA PEREZ [id number] Sintia Seybold 2022-12-18 00:00:00 2022-12-18 00:00:00 Outpatient MURALI CRISPIN PEREZ [id number] [facility] Seybold 2022-11-30 00:00:00 2022-11-30 00:00:00 Outpatient MURALI, CRISPIN PEREZ [id number] [facility] Seybold 2022-11-29 16:00:00 2022-11-29 16:00:00 Outpatient PREZAS, NATE SINTIA PEREZ [id number] S[facility] Seybold 2022-11-23 00:00:00 2022-11-23 00:00:00 Outpatient PREZASKENNYNATEREGINALDO PEREZ [id number] Sintia Seybold 2022-11-23 00:00:00 2022-11-23 00:00:00 Outpatient MURALI, CRISPIN PEREZ [id number] [facility] Seybold 2022-11-22 13:30:00 2022-11-22 13:30:00 Outpatient PREZASNATE SINTIA PEREZ [id number] Sintia Seybold 2022-11-22 00:00:00 2022-11-22 00:00:00 Outpatient PREZASNATE SINTIA PEREZ [id number] Sintia Seybold 2022-11-17 00:00:00 2022-11-17 00:00:00 Outpatient MURALI, CRISPIN PEREZ [id number] [facility] Seybold 2022-11-10 00:00:00 2022-11-10 00:00:00 Outpatient PATJAEL LIN [id number] S[facility] Seybold 2022-11-08 00:00:00 2022-11-08 00:00:00 Outpatient MD SINTIA RAMIREZ [id number] S[facility]ia Seybold 2022-11-08 00:00:00 2022-11-08 00:00:00 Outpatient ROBERT ADORNO [id number] S[facility] 2022-10-30 00:00:00 2022-10-30 00:00:00 Outpatient MD SINTIA RAMIREZ [id number] [facility] 2022-10-26 00:00:00 2022-10-26 00:00:00 Outpatient MD SINTIA RAMIREZ [id number] Sint[facility] 2022-10-20 22:30:00 2022-10-20 22:30:[address], TECH SINTIA PEREZ [id number] Sint[facility] 2022-10-20 10:30:00 2022-10-20 10:30:[address], TECH SINTIA PEREZ [id number] Sint[facility] 2022-10-20 00:00:00 2022-10-20 00:00:00 Outpatient MD SINTIA RAMIREZ [id number] [facility] 2022-10-19 00:00:00 2022-10-19 00:00:00 Outpatient NATE LOPEZ [id number] [facility] 2022-10-18 11:30:00 2022-10-18 11:30:00 Outpatient LABTim PEREZ [id number] Sint[facility] 2022-10-18 10:00:00 2022-10-18 10:00:00 Outpatient CRISPIN CARRION [id number] S[facility] 2022-10-17 11:00:00 2022-10-17 11:00:[address], TECH SINTIA PEREZ [id number] Sintia [facility] 2022-10-17 00:00:00 2022-10-17 00:00:00 Outpatient ROBERT ADORNO [id number] [facility] 2022-10-17 00:00:00 2022-10-17 00:00:00 Outpatient MD SINTIA RAMIREZ [id number] [facility] 2022-10-12 00:00:00 2022-10-12 00:00:00 Outpatient MD SINTIA RAMIREZ [id number] [facility] 2022-10-11 00:00:00 2022-10-11 00:00:00 Outpatient MD SINTIA RAMIREZ [id number] [facility] Seybold 2022-09-29 11:00:00 2022-09-29 11:00:00 Outpatient ERICKA HALE [id number] [facility] Seybold 2022-09-25 11:00:00 2022-09-25 11:00:00 Outpatient JAEL ESCOBAR [id number] [facility] Seybold 2022-09-25 10:30:00 2022-09-25 10:30:00 Outpatient JAEL ESCOBAR [id number] [facility] Seybold 2022-09-22 00:00:00 2022-09-22 00:00:00 Outpatient ERICKA HALE [id number] [facility] 2022-09-15 00:00:00 2022-09-15 00:00:00 Outpatient PREZANATE Adhikari [id number] [facility] 2022-06-16 00:00:00 2022-06-16 00:00:00 Outpatient PREZASNATE [id number] [facility] 2022-06-15 00:00:00 2022-06-15 00:00:00 Outpatient PREZASNATE [id number] S[facility]ia Seybold 2022-05-23 14:15:00 2022-05-23 14:15:00 Outpatient LAMGEORGE REYNOSO [id number] [facility] Seybold 2022-05-02 00:00:00 2022-05-02 00:00:00 Outpatient MD SINTIA RAMIREZ [id number] S[facility] Seybold 2022-04-11 11:00:00 2022-04-11 11:00:00 Outpatient PREZASNATE [id number] Sintia Seybold 2022-03-30 00:00:00 2022-03-30 00:00:00 Outpatient ERICKA HALE [id number] [facility] 2022-03-23 09:00:00 2022-03-23 09:00:00 Outpatient SINTIA PEREZ [id number] [facility] 2022-03-01 14:00:00 2022-03-01 14:00:00 Outpatient ERICKA HALE SINTIA PEREZ [id number] [facility] 2022-02-22 14:15:00 2022-02-22 14:15:00 Outpatient ADDYHONORIOERICKA SINTIA PEREZ [id number] [facility] 2022-02-15 00:00:00 2022-02-15 00:00:00 Outpatient MD SINTIA RAMIREZ [id number] S[facility]ia Amauri 2022-02-14 00:00:00 2022-02-14 00:00:00 Outpatient MD SINTIA RAMIREZ [id number] [facility] 2022-02-08 14:45:00 2022-02-08 14:45:00 Outpatient LAMGEORGE REYNOSO SINTIA PEREZ [id number] Sintia Fatimahty 2022-01-06 16:00:00 2022-01-06 16:00:00 Outpatient NICCI DELGADO [facility] [id number] [facility] 2021-12-09 16:45:00 2021-12-09 16:45:00 Outpatient LAB90 SINTIA PEREZ [id number] [facility] 2021-12-09 16:15:00 2021-12-09 16:30:26 Telemedici ne Nate Lopez [facility] 1.2.840.114 350.1.13.13 1.2.7.2.686 [id number] [facility] 2021-12-06 16:15:00 2021-12-06 16:15:00 Outpatient NATE LOPEZ [id number] [facility] Amauri 2021-11-28 11:30:00 2021-11-28 11:30:00 Telemedici ne [facility] 1.2.840.114 350.1.13.13 1.2.7.2.686 [id number] [facility] 2021-11-28 00:00:00 2021-11-28 00:00:00 Outpatient FADUMO RAM [id number] [facility] Amauri 2021-11-24 15:15:00 2021-11-24 15:30:00 Office Visit Nate Lopez 1.2.840.114 350.1.13.13 1.2.7.2.686 [id number] [facility] 2021-11-23 14:15:00 2021-11-23 14:15:00 Outpatient FADUMO RAM [id number] S[facility] 2021-11-11 16:00:00 2021-11-11 16:00:00 Outpatient NICCI DELGADO [facility] [id number] [facility] 2021-11-11 00:00:00 2021-11-11 00:00:00 Outpatient ADORNOROBERT [id number] [facility] 2021-11-11 00:00:00 2021-11-11 00:00:00 Orders Only Doctor Unassigned, Reedley [facility] 1.2.840.114 350.1.13.10 4.2.7.2.686 [id number] [facility] 2021-11-10 11:00:00 2021-11-10 11:15:00 Office Visit Nate Lopez 1.2.840.114 350.1.13.13 1.2.7.2.686 [id number] [facility] 2021-11-08 00:00:00 2021-11-08 00:00:00 Outpatient ALAINA HUMPHRIES [id number] Sintia [facility] 2021-11-07 00:00:00 2021-11-07 00:00:00 Outpatient FADUMO RAM [id number] S[facility]ia ty 2021-11-07 00:00:00 2021-11-07 00:00:00 Outpatient ROBERT ADORNO SINTIA PEREZ [id number] [facility]ia ty 2021-11-02 12:15:00 2021-11-02 12:15:00 Outpatient LAB39 SINTIA PEREZ [id number] [facility] 2021-11-02 11:30:00 2021-11-02 12:00:00 Office Visit Robert Adorno [facility] 1.2.840.114 350.1.13.13 1.2.7.2.686 [id number] Sintia ty 2021-10-31 09:00:00 2021-10-31 09:00:00 Outpatient ROBERT ADORNO SINTIA PEREZ [id number] Sintia [facility] 2021-10-31 00:00:00 2021-10-31 00:00:00 Outpatient ALAINA HUMPHRIES [id number] S[facility] 2021-10-29 00:00:00 2021-10-29 00:00:00 Outpatient ALAINA HUMPHRIES [id number] S[facility] 2021-10-29 00:00:00 2021-10-29 00:00:00 Outpatient RAMON LINDA [id number] S[facility] 2021-10-29 00:00:00 2021-10-29 00:00:00 Outpatient ALAINA HUMPHRIES [id number] [facility] 2021-10-27 07:30:00 2021-10-27 07:30:00 Outpatient ALAINA HUMPHRIES [id number] [facility] 2021-10-27 00:00:00 2021-10-27 00:00:00 Outpatient RONALD POOL [id number] S[facility] 2021-10-23 00:00:00 2021-10-23 00:00:00 Outpatient ALAINA HUMPHRIES [id number] [facility] 2021-10-20 00:00:00 2021-10-20 00:00:00 Outpatient ALAINA HUMPHRIES [id number] [facility] 2021-10-13 09:30:00 2021-10-13 09:30:00 Office Visit [facility] 1.2.840.114 350.1.13.13 1.2.7.2.686 [id number] [facility]augh 2021-10-11 00:00:00 2021-10-11 00:00:00 Outpatient RADIOLOGY, DEPT SINTIA PEREZ [id number] [facility] 2021-10-11 00:00:00 2021-10-11 00:00:00 Outpatient ALAINA HUMPHRIES SINTIA [id number] [facility] 2021-09-29 10:00:00 2021-09-29 10:00:00 Outpatient SINTIA SINTIA [id number] [facility] 2021-09-26 00:00:00 2021-09-26 00:00:00 Outpatient ALAINA HUMPHRIES SINTIA [id number] [facility] 2021-09-23 17:40:00 2021-09-23 17:40:00 Outpatient SINTIA PEREZ [id number] [facility] Amauri 2021-09-23 17:35:00 2021-09-23 17:35:00 Outpatient SINTIA PEREZ [id number] [facility]ia ty 2021-09-23 17:30:00 2021-09-23 17:30:00 Outpatient SINTIA PEREZ [id number] [facility] Amauri 2021-09-23 10:45:00 2021-09-23 10:45:[address] [facility] [facility] 1.2.840.114 350.1.13.13 1.2.7.2.686 [id number] Sintia Amauri 2021-09-21 00:00:00 2021-09-21 00:00:00 Outpatient ALAINA HUMPHRIES [id number] [facility] 2021-09-08 00:00:00 2021-09-08 00:00:00 Telephone Rashard Garcia [facility] [address] [facility] [facility] 1.2.840.114 350.1.13.58 9.2.7.2.686 [id number] [facility] 2021-05-04 02:45:00 2021-05-04 02:45:00 Outpatient WATERS_S [facility] [id number] 2020-11-30 05:03:00 2020-11-30 05:03:00 Outpatient SCHAUBROECK _L [facility] [id number] 2020-11-30 00:00:00 2020-11-30 00:00:00 Outpatient Opal Trotter [facility] [id number] 2020-11-30 00:00:00 2020-11-30 00:00:00 Opal Trinidad k, [facility]-: [address] [place] [address], [address] [place] [id number] , Ph. [facility] [id number] [facility] 2020-11-15 00:00:00 2020-11-15 00:00:00 Telephone Isabel Chicas [facility] 1.2.840.114 350.1.13.10 4.2.7.2.686 [id number] [facility] 2019-06-18 16:14:12 2019-06-18 16:44:40 Office Visit Isabel Chicas [facility] es [place] 1.2.840.114 350.1.13.10 4.2.7.2.686 [id number] [facility] 2019-06-18 16:14:12 2019-06-18 16:44:40 Office Visit Isabel Chicas [facility] Surgical Specialti gunner You 1.2.840.114 350.1.13.10 4.2.7.2.686 [id number] 2019-06-18 16:15:00 2019-06-18 16:15:00 Outpatient R CHICAS ISABEL [facility] [id number] [facility] 2019-06-13 19:36:06 2019-06-13 21:17:38 Urgent Care X[place] Kaur Unknown, Attending Carlos Victor [facility] Surgical Special gunenr [place] 1.2840.114 350.1.13.10 4.2.7.2.686 [id number] [facility] 2019-06-07 18:34:37 2019-06-07 21:31:00 Emergency Stella Sandy Miriam [facility] 1.2840.114 350.1.13.10 4.2.7.2.686 [id number] [facility] 2019-06-07 18:34:37 2019-06-07 21:31:00 Emergency X SANDY PAREDES [facility] ERT [id number] [facility] 2019-05-21 14:58:20 2019-05-21 15:37:14 Office Visit Isabel Chicas [facility] Surgical Specialti gunner [place] 1.2840.114 350.1.13.10 4.2.7.2.686 [id number] [facility] 2019-05-14 15:46:00 2019-05-14 23:59:00 Hospital Encounter Isabel Chicas [facility] Surgical Specialti gunner [place] 1.2840.114 350.1.13.10 4.2.7.2.686 [id number] [facility] 2019-05-14 16:18:49 2019-05-14 16:33:49 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, Adc Lab Main Isabel Chicas [facility] Kenyatta Mercado [facility] 1..114 350.1.13.10 4.2.7.2.686 [id number] [facility] 2019-05-14 14:45:50 2019-05-14 15:55:21 Office Visit Isabel Chicas [facility] Health Surgical Specialti [place] 1..114 350.1.13.10 4.2.7.2.686 [id number] [facility] Results Test Description Test Time Test Comments Results Result Co m[facility], [id number] 20:30:00 * Test Item Value Reference Range Interpretation Comme nts POCT U SP GRAV (test code = 3255) 1.020 mg/dl 1.005-1.025 POCT PH U (test code = 3254) 6.5 mg/dl 5-8 POCT U LEUK EST (test code = 3263) small Negative - Negative POCT U NIT (test code = 3262) negative Negative - Negati ve POCT U PROT (test code = 3259) 100 Negative - Negative POCT U GLU (test code = 3256) negative Negative - Negati ve POCT U KETONE (test code = 3258) trace Negative - Negative POCT U UROBILI (test code = 3260) 0.2 mg/dl 0.2-1 POCT U BILI (test code = 3261) negative Negative - Negative POCT U BLD (test code = 3257) moderate Negative - Negati ve POCT U COLOR (test code = 3266) yellow POCT U APPEAR (test code = 3267) clear [facility] Ur[facility], [id number] 20:30:00 * Test Item Value Reference Range Interpretation Comme nts POCT U SP GRAV (test code = 3255) 1.020 mg/dl 1.005-1.025 POCT PH U (test code = 3254) 6.5 mg/dl 5-8 POCT U LEUK EST (test code = 3263) small Negative - Negative POCT U NIT (test code = 3262) negative Negative - Negati ve POCT U PROT (test code = 3259) 100 Negative - Negative POCT U GLU (test code = 3256) negative Negative - Negati ve POCT U KETONE (test code = 3258) trace Negative - Negative POCT U UROBILI (test code = 3260) 0.2 mg/dl 0.2-1 POCT U BILI (test code = 3261) negative Negative - Negative POCT U BLD (test code = 3257) moderate Negative - Negati ve POCT U COLOR (test code = 3266) yellow POCT U APPEAR (test code = 3267) clear [facility] RES,US,[id number] 00:00:00* Test Item Value Reference Range Interpretation Comme nts PVR (URINE VOLUME) (test code = 5193) 6 ml 0-100 [facility],POST-VOID RES,US,[id number] 00:00:00* Test Item Value Reference Range Interpretation Comme nts PVR (URINE VOLUME) (test code = 5193) 6 ml 0-100 [facility],POST-VOID RES,US,[id number] 00:00:00* Test Item Value Reference Range Interpretation Comme nts PVR (URINE VOLUME) (test code = 5193) 6 ml 0-100 [facility] Urinalysis, [id number] 21:25:00 * Test Item Value Reference Range Interpretation Comme nts POCT U SP GRAV (test code = 3255) 1.015 mg/dl 1.005-1.025 POCT PH U (test code = 3254) 6.5 mg/dl 5-8 POCT U LEUK EST (test code = 3263) Moderate Negative - Negative POCT U NIT (test code = 3262) Negative Negative - Negati ve POCT U PROT (test code = 3259) 100 Negative - Negative POCT U GLU (test code = 3256) Negative Negative - Negati ve POCT U KETONE (test code = 3258) 40 Negative - Negative POCT U UROBILI (test code = 3260) 0.2 mg/dl 0.2-1 POCT U BILI (test code = 3261) Negative Negative - Negative POCT U BLD (test code = 3257) Large Negative - Negati ve POCT U COLOR (test code = 3266) Yellow POCT U APPEAR (test code = 3267) clear [facility] Urinalysis, [id number] 21:25:00 * Test Item Value Reference Range Interpretation Comme nts POCT U SP GRAV (test code = 3255) 1.015 mg/dl 1.005-1.025 POCT PH U (test code = 3254) 6.5 mg/dl 5-8 POCT U LEUK EST (test code = 3263) Moderate Negative - Negative POCT U NIT (test code = 3262) Negative Negative - Negati ve POCT U PROT (test code = 3259) 100 Negative - Negative POCT U GLU (test code = 3256) Negative Negative - Negati ve POCT U KETONE (test code = 3258) 40 Negative - Negative POCT U UROBILI (test code = 3260) 0.2 mg/dl 0.2-1 POCT U BILI (test code = 3261) Negative Negative - Negative POCT U BLD (test code = 3257) Large Negative - Negati ve POCT U COLOR (test code = 3266) Yellow POCT U APPEAR (test code = 3267) clear [facility] TIME OR (NON-REPORTABLE)2023-06-07 18:17:55 These images do not require a Radiology diagnostic report.[facility] TIME OR (NON-REPORTABLE)2023-06-07 18:17:55These images do not require a Radiology diagnostic report.[facility] Urinalysis, [id number] 17:17:00* Test Item Value Reference Range Interpretation Comme nts POCT U SP GRAV (test code = 3255) 1.015 mg/dl 1.005-1.025 POCT PH U (test code = 3254) 5.5 mg/dl 5-8 POCT U LEUK EST (test code = 3263) small Negative - Negative POCT U NIT (test code = 3262) negative Negative - Negati ve POCT U PROT (test code = 3259) negative Negative - Negative POCT U GLU (test code = 3256) negative Negative - Negati ve POCT U KETONE (test code = 3258) 15 Negative - Negative POCT U UROBILI (test code = 3260) 0.2 mg/dl 0.2-1 POCT U BILI (test code = 3261) negative Negative - Negative POCT U BLD (test code = 3257) small Negative - Negati ve POCT U COLOR (test code = 3266) yellow POCT U APPEAR (test code = 3267) clear [facility] Urinalysis, [id number] 17:17:00 * Test Item Value Reference Range Interpretation Comme nts POCT U SP GRAV (test code = 3255) 1.015 mg/dl 1.005-1.025 POCT PH U (test code = 3254) 5.5 mg/dl 5-8 POCT U LEUK EST (test code = 3263) small Negative - Negative POCT U NIT (test code = 3262) negative Negative - Negati ve POCT U PROT (test code = 3259) negative Negative - Negative POCT U GLU (test code = 3256) negative Negative - Negati ve POCT U KETONE (test code = 3258) 15 Negative - Negative POCT U UROBILI (test code = 3260) 0.2 mg/dl 0.2-1 POCT U BILI (test code = 3261) negative Negative - Negative POCT U BLD (test code = 3257) small Negative - Negati ve POCT U COLOR (test code = 3266) yellow POCT U APPEAR (test code = 3267) clear [facility] Urinalysis, [id number] 17:17:00 * Test Item Value Reference Range Interpretation Comme nts POCT U SP GRAV (test code = 3255) 1.015 mg/dl 1.005-1.025 POCT PH U (test code = 3254) 5.5 mg/dl 5-8 POCT U LEUK EST (test code = 3263) small Negative - Negative POCT U NIT (test code = 3262) negative Negative - Negati ve POCT U PROT (test code = 3259) negative Negative - Negative POCT U GLU (test code = 3256) negative Negative - Negati ve POCT U KETONE (test code = 3258) 15 Negative - Negative POCT U UROBILI (test code = 3260) 0.2 mg/dl 0.2-1 POCT U BILI (test code = 3261) negative Negative - Negative POCT U BLD (test code = 3257) small Negative - Negati ve POCT U COLOR (test code = 3266) yellow POCT U APPEAR (test code = 3267) clear [facility] RES,US,[id number] 00:00:00* Test Item Value Reference Range Interpretation Comme nts PVR (URINE VOLUME) (test code = 5193) 20 ml 0-100 [facility],POST-VOID RES,US,[id number] 00:00:00* Test Item Value Reference Range Interpretation Comme nts PVR (URINE VOLUME) (test code = 5193) 20 ml 0-100 [facility],POST-VOID RES,US,[id number] 00:00:00* Test Item Value Reference Range Interpretation Comme nts PVR (URINE VOLUME) (test code = 5193) 20 ml 0-100 [facility]lineCT ABDOMEN PELVIS WO [id number] 07:48:09Ordering physician: KENZIE TAYLOR Indication: Abdominal and flank pain COMPARISON: None TECHNIQUE: Axial images of the abdomen and pelvis were performed withoutthe administration of intravenous contrast material. Images werereformatted in the coronal and sagittal plane. CT scan was performedacco rding to ALARA (as low as reasonably achievable) policy. FINDINGS: The lung bases are clear. The patient is status postcholecystectomy. The liver is enlarged at 22 cm in long axis. Thenoncontrast appearance of the spleen, adrenal glands and pancreas is withinnormal limits. The left kidney is unremarkable. There is mild righthydronephrosis associated with a 9 mm, 1200 Hounsfield unit UPJ calculus(series 2, image 65). There is no abdominal aortic aneurysm. There is no free fluid in the pelvis. There is no bowel obstruction,widespread diverticulosis or acute diverticulitis. The appendix issurgically absent. Bone windows through the abdomen and pelvis demonstrateno osseous destructive lesion. [facility]. METABOLIC PANEL (19551)2023-06-02 07:05:45* Test Item Value Reference Range Interpretation Comme nts NA (test code = 8567504467) 136 mmol/L 135-145 K (test code = 5663822137) 3.4 mmol/L 3.5-5.0 L CL (test code = 8759868690) 105 mmol/L 98-108 CO2 TOTAL (test code = 3981189547) 26 mmol/L 23-31 AGAP (test code = 8987594829) 5 2-16 BUN (test code = 6276239426) 19 mg/dL 7-23 GLUCOSE (test code = 4225119634) 114 mg/dL 70-110 H CREATININE (test code = 7853491578) 1.11 mg/dL 0.50-1.04 H TOTAL BILI (test code = 2999788166) 0.4 mg/dL 0.1-1.1 CALCIUM (test code = 5344932534) 8.8 mg/dL 8.6-10.6 T PROTEIN (test code = 2106164498) 7.1 g/dL 6.3-8.2 ALBUMIN (test code = 7521248019) 4.1 g/dL 3.5-5.0 ALK PHOS (test code = 5970701315) 69 U/L 34-122 ALTv (test code = 1742-6) 14 U/L 5-35 AST(SGOT) (test code = 4472620986) 18 U/L 13-40 eGFR (test code = 49596-7) 59.6 mL/min/1.73m2 Lab Interpretation (test cod e = 82153-9) Abnormal [facility] WITH [id number] 06:53:02* Test Item Value Reference Range Interpretation Comme nts WBC (test code = 6690-2) 12.14 4.30-11.10 H RBC (test code = 789-8) 4.34 3.93-5.25 HGB (test code = 718-7) 12.2 g/dL 11.6-15.0 HCT (test code = 4544-3) 36.8 % 35.7-45.2 MCV (test code = 787-2) 84.8 fL 80.6-95.5 MCH (test code = 785-6) 28.1 pg 25.9-32.8 MCHC (test code = 786-4) 33.2 g/dL 31.6-35.1 RDW-SD (test code = 00767-6) 46.7 fL 39.0-49.9 RDW-CV (test code = 788-0) 15.3 % 12.0-15.5 PLT (test code = 777-3) 331 166-358 MPV (test code = 58310-9) 9.9 fL 9.5-12.9 NRBC/100 WBC (test code = 5735412399) 0.0 0.0-10.0 NRBC x10^3 (test code = 0585633323) See_Comment [Automated messa ge] The system which generated this result transmitted reference range: 10*3/?L. The reference range was not used to interpret this result as normal/abnormal. GRAN MAT (NEUT) % (test code = 770-8) 70.6 % IMM GRAN % (test code = 0529342529) 0.60 % LYMPH % (test code = 736-9) 16.9 % MONO % (test code = 5905-5) 8.0 % EOS % (test code = 713-8) 3.3 % BASO % (test code = 706-2) 0.6 % GRAN MAT x10^3(ANC) (test code = 5606244747) 8.58 10*3/uL 1.88-7.09 H IMM GRAN x10^3 (test code = 7387036115) 0.07 10*3/uL 0.00-0.06 H LYMPH x10^3 (test code = 731-0) 2.05 10*3/uL 1.32-3.29 MONO x10^3 (test code = 742-7) 0.97 10*3/uL 0.33-0.92 H EOS x10^3 (test code = 711-2) 0.40 10*3/uL 0.03-0.39 H BASO x10^3 (test code = 704-7) 0.07 10*3/uL 0.01-0.07 Lab Interpretation (test code = 58014-2) Abnormal [facility] MOLECULAR [id number] 20:36:20* Test Item Value Reference Range Interpretation Comme nts POCT Molecular FluA (test co de = 73735-0) Negative Negative POCT Molecular FluB (test co de = 68360-9) Negative Negative Lab Interpretation (test cod e = 51643-3) Normal [facility] URINALYSIS W SPECIFIC [id number] 20:29:00* Test Item Value Reference Range Interpretation Comme nts POCT U SP GRAV (test code = 3255) 1.015 mg/dl 1.005-1.025 POCT PH U (test code = 3254) 5 mg/dl 5-8 POCT U LEUK EST (test code = 3263) ++ Negative - Negative POCT U NIT (test code = 3262) Positive Negative - Negati ve POCT U PROT (test code = 3259) + Negative - Negative POCT U GLU (test code = 3256) Normal Negative - Negati ve POCT U KETONE (test code = 3258) Negative Negative - Negative POCT U UROBILI (test code = 3260) Normal 0.2-1 POCT U BILI (test code = 3261) Negative Negative - Negative POCT U BLD (test code = 3257) 250 Negative - Negati ve POCT U COLOR (test code = 3266) sergei POCT U APPEAR (test code = 3267) cloudy Lab Interpretation (test cod e = 52023-3) Abnormal [facility]lineSCR MAMM BILATERAL NEERU CAD [id number] 08:42:57Name: Benita : 1970 Sex: F - SCR MAMM BILATERAL NEERU CAD DIGITALBILATERAL DIGITAL SCREENING MAMMOGRAM 3D/2D WITH CAD: 2CLINICAL: Asymptomatic. Digital breasttomosynthesis was performed in addition to routine CC and MLO views. Current mammographic images were evaluated by [employer] Image[employer] CAD (computer-aided detection) software. No prior exams were available for comparison. There are scattered fibroglandular tissues in both breasts. No suspicious mass, architectural distortion, malignant type calcification, or lymph node abnormality detected. IMPRESSION: NEGATIVEThere is no mammographic evidence of malignancy. Resume annual screening mammographyin one year. Ericka Duron M.D. et/penrad:05/06/2021 08:42:57 Procurement Specialist: Denisse Asher MM, [facility] Mammographyletter sent: BIRADS 1-2 Normal Mammogram BI-RADS: 1 [id number]-SeV-7 (COVID-19) Ag [Presence] in Respiratory specimen by Rapid [id number] 14:33:00* Test Item Value Reference Range Interpretation Comme nts SARS CoV 2 (test code = SARS CoV 2) [facility] ([facility]2019-06-14 03:15:00 * Test Item Value Reference Range Interpretation Comme nts POCT INFLUENZA A (test code = 3840) neg Negative - Negative POCT INFLUENZA B (test code = 3841) neg Negative - Negative Lab Interpretation (test cod e = 36945-9) Normal [facility]lineSTREPTOLYSIN O ANTIBODY (ASO)2019-05-17 15:37:00* Test Item Value Reference Range Interpretation Comme nts ASO (test code = 4370) See_Comment H R EFERENCE INTERVAL: Streptolysin O Antibody Access complete set of age- and/or gender-specific reference intervals for this test in the [facility] Test Directory ([employer]).Perform ed by [employer],[address] [place] [email or web address], Saeid Scruggs MD, Lab. Director [Automated message] The system which generated this result transmitted reference range: 0 - 330 IU/mL. The reference range was not used to interpret this result as normal/abnormal. Lab Interpretation (test code = 49255-9) Abnormal [facility]lineSTREPTOLYSIN O ANTIBODY (ASO)2019-05-17 15:37:00* Test Item Value Reference Range Interpretation Comme nts ASO (test code = 4370) See_Comment H R EFERENCE INTERVAL: Streptolysin O Antibody Access complete set of age- and/or gender-specific reference intervals for this test in the [facility] Test Directory ([employer]).Perform ed by [employer],[address] [place] [address] [email or web address], Saeid Scruggs MD, Lab. Director [Automated message] The system which generated this result transmitted reference range: 0 - 330 IU/mL. The reference range was not used to interpret this result as normal/abnormal. Lab Interpretation (test code = 21439-1) [facility]normal [facility] [id number] 15:13:00* Test Item Value Reference Range Interpretation Comme nts RF (test code = 4087913057) See_Comment H [Automated messa ge] The system which generated this result transmitted reference range: <20 IU/mL. The reference range was not used to interpret this result as normal/abnormal. Lab Interpretation (test code = 60038-3) Abnormal [facility] ShorelineRHEUMATOID [id number] 15:13:00* Test Item Value Reference Range Interpretation Comme nts RF (test code = 4113305955) See_Comment H [Automated messa ge] The system which generated this result transmitted reference range: <20 IU/mL. The reference range was not used to interpret this result as normal/abnormal. Lab Interpretation (test code = 79731-2) Abnormal [facility]lineC-REACTIVE [id number] 15:12:00* Test Item Value Reference Range Interpretation Comme nts CRP (test code = 1274726073) 0.3 mg/dL <0.8 Lab Interpretation (test cod e = 95095-1) Normal [facility]lineC-REACTIVE [id number] 15:12:00* Test Item Value Reference Range Interpretation Comme nts CRP (test code = 7103902643) 0.3 mg/dL <0.8 Lab Interpretation (test cod e = 00399-2) Normal [facility]lineURIC [id number] 23:35:00* Test Item Value Reference Range Interpretation Comme nts URIC ACID (test code = 6630794208) 4.7 mg/dL 2.9-6 Lab Interpretation (test cod e = 87741-8) Normal [facility]lineURIC [id number] 23:35:00* Test Item Value Reference Range Interpretation Comme nts URIC ACID (test code = 7296894319) 4.7 mg/dL 2.9-6 Lab Interpretation (test cod e = 70324-2) [facility] [id number] 23:30:00* Test Item Value Reference Range Interpretation Comme nts ESR (test code = 1681637973) See_Comment [Automated messa ge] The system which generated this result transmitted reference range: 0 - 20 mm/HR. The reference range was not used to interpret this result as normal/abnormal. Lab Interpretation (test code = 92336-7) Normal [facility] [id number] 23:30:00* Test Item Value Reference Range Interpretation Comme nts ESR (test code = 8474674223) See_Comment [Automated messa ge] The system which generated this result transmitted reference range: 0 - 20 mm/HR. The reference range was not used to interpret this result as normal/abnormal. Lab Interpretation (test code = 13385-1) Normal [facility] WITH [id number] 22:48:00* Test Item Value Reference Range Interpretation Comme [facility] WBC (test code = 6690-2) See_Comment H [Automated messa ge] The system which generated this result transmitted reference range: 4.30 - 11.10 10*3/?L. The reference range was not used to interpret this result as normal/abnormal. RBC (test code = 789-8) See_Comment [Automated messa ge] The system which generated this result transmitted reference range: 3.93 - 5.25 10*6/?L. The reference range was not used to interpret this result as normal/abnormal. HGB (test code = 718-7) 14.6 g/dL 11.6-15 HCT (test code = 4544-3) 44.1 % 35.7-45.2 MCV (test code = 787-2) 92.3 fL 80.6-95.5 MCH (test code = 785-6) 30.5 pg 25.9-32.8 MCHC (test code = 786-4) 33.1 g/dL 31.6-35.1 RDW-SD (test code = 92786-8) 44.3 fL 39-49.9 RDW-CV (test code = 788-0) 13.0 % 12-15.5 PLT (test code = 777-3) See_Comment [Automated Probitya ge] The system which generated this result transmitted reference range: 166 - 358 10*3/?L. The reference range was not used to interpret this result as normal/abnormal. MPV (test code = 22383-8) 9.7 fL 9.5-12.9 NRBC/100 WBC (test code = 0571417695) See_Comment [Automated [employer]age] The system which generated this result transmitted reference range: 0.0 - 10.0 /100 WBCs. The reference range was not used to interpret this result as normal/abnormal. NRBC x10^3 (test code = 8846617362) <0.01 See_Comment [Automated Probitya ge] The system which generated this result transmitted reference range: 10*3/?L. The reference range was not used to interpret this result as normal/abnormal. GRAN MAT (NEUT) % (test code = 770-8) 68.4 % IMM GRAN % (test code = 1531913535) 0.50 % LYMPH % (test code = 736-9) 20.0 % MONO % (test code = 5905-5) 7.5 % EOS % (test code = 713-8) 2.8 % BASO % (test code = 706-2) 0.8 % GRAN MAT x10^3(ANC) (test code = 3291011071) 8.24 10*3/uL 1.88-7.09 H IMM GRAN x10^3 (test code = 6192734536) 0.06 10*3/uL 0-0.06 LYMPH x10^3 (test code = 731-0) 2.41 10*3/uL 1.32-3.29 MONO x10^3 (test code = 742-7) 0.90 10*3/uL 0.33-0.92 EOS x10^3 (test code = 711-2) 0.34 10*3/uL 0.03-0.39 BASO x10^3 (test code = 704-7) 0.10 10*3/uL 0.01-0.07 H Lab Interpretation (test code = 98583-0) Abnormal [facility] WITH [id number] 22:48:00* Test Item Value Reference Range Interpretation Comme nts WBC (test code = 6690-2) See_Comment H [Automated messa ge] The system which generated this result transmitted reference range: 4.30 - 11.10 10*3/?L. The reference range was not used to interpret this result as normal/abnormal. RBC (test code = 789-8) See_Comment [Automated messa ge] The system which generated this result transmitted reference range: 3.93 - 5.25 10*6/?L. The reference range was not used to interpret this result as normal/abnormal. HGB (test code = 718-7) 14.6 g/dL 11.6-15 HCT (test code = 4544-3) 44.1 % 35.7-45.2 MCV (test code = 787-2) 92.3 fL 80.6-95.5 MCH (test code = 785-6) 30.5 pg 25.9-32.8 MCHC (test code = 786-4) 33.1 g/dL 31.6-35.1 RDW-SD (test code = 73486-1) 44.3 fL 39-49.9 RDW-CV (test code = 788-0) 13.0 % 12-15.5 PLT (test code = 777-3) See_Comment [Automated messa ge] The system which generated this result transmitted reference range: 166 - 358 10*3/?L. The reference range was not used to interpret this result as normal/abnormal. MPV (test code = 44799-4) 9.7 fL 9.5-12.9 NRBC/100 WBC (test code = 4064873355) See_Comment [Automated [employer] ssage] The system which generated this result transmitted reference range: 0.0 - 10.0 /100 WBCs. The reference range was not used to interpret this result as normal/abnormal. NRBC x10^3 (test code = 9562272759) <0.01 See_Comment [Automated messa ge] The system which generated this result transmitted reference range: 10*3/?L. The reference range was not used to interpret this result as normal/abnormal. GRAN MAT (NEUT) % (test code = 770-8) 68.4 % IMM GRAN % (test code = 3752362563) 0.50 % LYMPH % (test code = 736-9) 20.0 % MONO % (test code = 5905-5) 7.5 % EOS % (test code = 713-8) 2.8 % BASO % (test code = 706-2) 0.8 % GRAN MAT x10^3(ANC) (test code = 7204157534) 8.24 10*3/uL 1.88-7.09 H IMM GRAN x10^3 (test code = 0117329391) 0.06 10*3/uL 0-0.06 LYMPH x10^3 (test code = 731-0) 2.41 10*3/uL 1.32-3.29 MONO x10^3 (test code = 742-7) 0.90 10*3/uL 0.33-0.92 EOS x10^3 (test code = 711-2) 0.34 10*3/uL 0.03-0.39 BASO x10^3 (test code = 704-7) 0.10 10*3/uL 0.01-0.07 H Lab Interpretation (test code = 51217-9) Abnormal [facility] History and Physical Notes Date/Time Note Provider Source 2023-06-07 09:50:34 Urology Pre-Operative History and Physical Update Note Date of Service: 06/07/2023 There have been no significant interval changes in the history or physical examination. See full history and physical for more details. Risks, benefits and alternatives to the procedure were reviewed with the patient again today, and she voiced understanding of the condition present as well as the planned procedure and wishes to proceed. Informed consent was obtained and all questions answered. Diagnosis: right ureteral stone Radiological imaging studies reviewed with patient and correct side confirmed : right Patient confirmed consent :right USM USM: invasive, most likely clear the stone in one session, risk of complications mainly damage to ureter ( perforation, avulsion, need to reimplant/reconstruct the ureter). pain, bleeding, infection, injury to surrounding structures, need for prolonged stent, failure to access ureter/kidney, need for percutaneous nephrostomy tube, failure to remove all stone, need for additional procedures All questions answered and patient voiced understanding Planned procedure: Right USM Brett Polanco MD [facility] Source Note - Brett Polanco MD - 06/05/2023 11:00 AM [facility] UROLOGY HISTORY AND PHYSICAL NOTE Date of Service: 06/05/2023 Chief Complaint: right UPJ stone History of Present Illness: Benita Hunt is a 52 year old female with PMH asbelow , who presents with hx of recurrent UTI and obstructing 9 mm Right UPJ stone on recent CT. Pain improved on oral abx and analgesia, no hx of fever and did not pass the stone No previous urolithiasis and no Fhx of urolithiasis Home Medications: (Not in a hospital admission) Histories: Past Medical History: Diagnosis Date ADHD (attention deficit hyperactivity disorder) Anxiety Depression Hypothyroidism Insomnia Sleep apnea Past Surgical History: Procedure Laterality Date APPENDECTOMY CHOLECYSTECTOMY COSMETIC SURGERY 1994 right foot HYSTERECTOMY JOINT SURGERY Right performed by Dr. Chicas KNEE ARTHROSCOPY Right LAPAROSCOPIC ROBOTIC ASSISTED GASTRIC BAND REMOVAL(SHX) Family History Problem Relation Age of Onset Other - see comments Mother Heart Father Social History Socioeconomic History Marital status: Spouse name: Not on file Number of children: Not on file Years of education: Not on file Highest education level: Not on file Occupational History Not on file Tobacco Use Smoking status: Every Day Smokeless tobacco: Never Substance and Sexual Activity Alcohol use: No Alcohol/week: 0.0 standard drinks of alcohol Drug use: No Sexual activity: Not on file Other Topics Concern Not on file Social History Narrative Not on file Social Determinants of Health Financial Resource Strain: Not on file Food Insecurity: Not on file Transportation Needs: Not on file Physical Activity: Not on file Stress: Not on file Social Connections: Not on file Intimate Partner Violence: Not on file Housing Stability: Not on file Allergies: Allergies Allergen Reactions Tramadol Other - See comments irritation Trazodone Palpitations irritation Review of Systems: Constitutional: negative Eyes: negative Ears, nose, mouth, throat: negative Cardiovascular: negative Respiratory: negative Gastrointestinal: negative Genitourinary: (+) per HPI Musculoskeletal: negative Integumentary: negative Neurological: negative Psychiatric: negative Endocrine: negative Hematologic/Lymphatic: negative Allergic/Immunologic: negative, allergies listed above Physical Examination: Blood pressure (!) 150/88, pulse 69, temperature 36.5 ?C (97.7 ?F), resp. rate 18, height 5' 6" (1.676 m), weight 35 lb (15.9 kg), SpO2 96 %. Constitutional:no acute distress Eyes: normal external eye, conjunctiva and sclera normal Ears, nose, mouth, throat: normocephalic, moist mucous membranes Cardiovascular: regular rate and rhythm Respiratory: respirations unlabored on room air Musculoskeletal: no clubbing, cyanosis or edema Skin: no rashes Neurologic: no focal deficits Psychiatric: appropriate mood and affect Hematologic: no bruising Laboratory: Hemogram Recent Labs 06/02/23 0029 WBC 12.14* HGB 12.2 HCT 36.8 PLT 331 Chemistry Recent Labs 06/02/23 0029 NA 136 K 3.4* CL 105 TCO2 26 AGAP 5 BUN 19 GLU 114* CREAT 1.11* CA 8.8 EGFR 59.6 Urinalysis Recent Labs 06/02/23 0120 USPGRAV 1.014 UPH 6.0 UPROTEIN Negative UGLUCOSE Normal UKETONES 5 mg/dL* UBILI Negative UNITRITE Positive* ULEUKEST 250/uL* URBC 13* UWBC 46* UBACTERIA Many* Urine Culture Recent Labs 03/28/23 1431 CUR >100,000 CFU/mL Escherichia coli* Liver Function Tests Recent Labs 06/02/23 0029 AST 18 ALT 14 ALKPHOS 69 BILIT 0.4 Coagulation Profile There are no current results on file for these tests and/or test for the past 3 mos. Arterial Blood Gas There are no current results on file for these tests and/or test for the past 3 mos. Radiology: I independently visualized the images noted below. I also reviewed images with patient CT ABDOMEN PELVIS WO CONTRAST Result Date: 06/02/2023 Ordering physician: KENZIE TAYLOR Indication: Abdominal and flank pain COMPARISON: None TECHNIQUE: Axial images of the abdomen and pelvis were performed without the administration of intravenous contrast material. Images were reformatted in the coronal and sagittal plane. CT scan was performed according to ALARA (as low as reasonably achievable) policy. FINDINGS: The lung bases are clear. The patient is status post cholecystectomy. The liver is enlarged at 22 cm in long axis. The noncontrast appearance of the spleen, adrenal glands and pancreas is within normal limits. The left kidney is unremarkable. There is mild right hydronephrosis associated with a 9 mm, 1200 Hounsfield unit UPJ calculus (series 2, image 65). There is no abdominal aortic aneurysm. There is no free fluid in the pelvis. There is no bowel obstruction, widespread diverticulosis or acute diverticulitis. The appendix is surgically absent. Bone windows through the abdomen and pelvis demonstrate no osseous destructive lesion. Mild right hydronephrosis associated with a 9 mm, 1200 Hounsfield unit UPJ calculus. Hepatomegaly. RL: [id number] AFC: [id number] Procedure: PVR Assessment and Plan: 52 year old female with obstructing 9 mm UPJ stone, TYREL and UTI on oral abx . I reviewed the CT scan images with the patient and discussed different management options: 1. Conservative management: stones will continue to grow, increasing risk causing obstruction, pain, loss of kidney function, loss of kidney. Not recommended 2. Medical expulsive therapy with Flomax, which is unlikely to be successful given the large size of the stone. 3. Cystoscopy and placement of Right ureteral stent to help un-obstruct the kidney , control pain, preserve kidney function and reduce the risk of severe infection. This will have to be followed by either Ureteroscopic manipulation of the ureteral stone and laser lithotripsy , or Extracorporeal Shock Wave Lithotripsy (unlikely to be effective with body habitus, may require more than one ESWL treatment, but less invasive and can be considered) 4. Right Percutaneous nephrostomy tube 5. USM: invasive, most likely clear the stone in one session, risk of complications mainly damage to ureter ( perforation, avulsion, need to reimplant/reconstruct the ureter). pain, bleeding, infection, injury to surrounding structures, need for prolonged stent, failure to access ureter/kidney, need for percutaneous nephrostomy tube, failure to remove all stone, need for additional procedures Offered second opinion declined After a thorough discussion he opted to have a Right USM ADC OR 06/07/2023, if not feasble will place stent and perform USM in 2 weeks or so, Plan: Continue oral abx Ucx Right USM 06/07/2023 Consented Pre op instructions and all questions answered , patient and voiced understanding I spend a Total Time of 45 minutes. The time spent for patient care includes: PreCharting (eg, review of tests, notes, etc.), Obtaining and/or reviewing separately obtained history (Care Everywhere or paper records), Performing a medically appropriate examination and/or evaluation, Counseling and educating the patient/family/caregiver, Ordering medications, tests, or procedures, Ordering referrals and/or communicating with other health pediatric critical care nurse (when not separately reported), Documenting clinical information in the electronic or other health record and Care coordination (not separately reported). Brett Polanco MD [facility] Procedure Notes Date/Time Note Provider Source 2023-06-07 12:57:59 FULL OPERATIVE NOTE Date of Surgery: 06/07/2023 Faculty physician: Brett Polanco MD Anesthesia Type: general - GETA Pre-operative diagnosis: R ureterolithiasis, L Post-operative diagnosis: R ureterolithiasis, bstructing 9 mm Right UPJ stone on recent CT Procedures: R USM with laser lithotripsy (CPT 76803) Retrograde pyelogram (CPT 74138 + modifier 26 to include professional component for interpretation) R ureteral stent placement Findings: normal appearing bladder, obstructing stone approximately 9 mm seen and obliterated into dust, all sizeable fragments retrieved. A final RGP rrevealed intact patulous ureter without filling defects or extravasation. A double J ureteral stent without a string was placed on the Right in proper position. Complications: none Estimated blood loss: 2 mL Specimens: stone for analysis Drains: none Other important information: 24 cm 6Fr double J ureteral stent with the string placed in the left ureter Procedure: After informed consent was obtained, the patient was taken to the operating room. A time-out procedure was conducted to confirm the correct patient and procedure. The patient underwent general anesthesia. The patient was prepped and draped in the usual sterile fashion using Betadine in the lithotomy position. A 21-fr rigid cystoscope was introduced into the bladder through the urethra. A sensor wire was cannulated through right U.O up to renal pelvis under fluoroscopic guidance. . right RGP performed with 5 Fr open ended catheter , obtained a retrograde pyelogram to road map our procedure. A stone was seen in the right UPJ , no other filling defects were noted. Short semi- rigid ureteroscope passed easily up to right UPJ , stone not seen , super stiff passed through ureteroscope We then place a dual-lumen ureteral catheter over the wire, and We then advanced a super stiff wire, through the ureteroscope, then ureteroscope was removed and the wire securely fastened. We then placed an 11/13Fr ureteral access sheath over the super stiff wire. Easily . The flexible ureteroscope was then used to visualize the stone. Using a 200 micron laser, the stone was then obliterated. Any small stone fragments that were left were basketed using and ureteroscopic stone basket and stone sent for analysis. After all fragmentations were removed, complete pyeloscopy was performed demonstrating no stone left. Instrumentation was removed and then we placed a stent. A 24-cm 6-Rwandan double-J ureteral catheter without the string was placed into the the Right ureter under fluoroscopy. The proximal and distal coil of the stent was confirmed to be in the the left renal pelvis and bladder respectively under fluoroscopy. The stent string was secured. The patient was awaken from anesthesia, extubated, and transferred to the recovery room in good condition. Brett Polanco MD [facility]
[2024-05-14] MEDS ORDERED: NA CHLORIDE 0.9% 1,000 ML ONE (19:52)
[2024-05-14] MEDS ORDERED: FAMOTIDINE 20 MG/2 ML VIAL IV ONE (19:52)
[2024-05-14] MEDS ORDERED: MORPHINE 4 MG/ML SYR ONE (19:52)
[2024-05-14] MEDS ORDERED: ONDANSETRON 4 MG/2 ML VIAL ONE (19:52)
[2024-05-14 20:10] LABS: Absolute Basophils 0.1 K/uL (0-0.5); Absolute Eosinophils 0.4 K/uL (0-0.5); Absolute Lymphocytes (CBC) 2.2 K/uL (0.7-4.9); Absolute Monocytes 0.9 K/uL (0.1-1.3); Absolute Neutrophil 7.2 K/uL (1.8-8.0); Basophils % 0.7 % (0-1.3); Hematocrit 38.1 % (36.0-45.0); Lymphocytes % 20.1 % (15.3-44.8); MCH 29.4 pg (27.0-35.0); MCHC 34.1 g/dL (32.0-36.0); MCV 86.2 fL (80-100); Monocytes % 8.1 % (3.3-12.3); Neutrophils % 67.1 % (41.7-73.7); Nucleated Red Blood Cells % 0.1 % (0-0); Platelets 326 thou/uL (152-406); RBC Red Blood Cell Count 4.42 M/uL (3.86-4.86); Red Cell Distribution Width 16.2 % (12.1-15.2)
--- NOTE | 2024-05-14 20:12 | RAD REPORT ---
EXAMINATION: ONE VIEW CHEST XR CLINICAL INDICATION: Chest pain;Cough TECHNIQUE: Frontal chest projection is submitted. Examination is limited by patient positioning and t echnique. COMPARISON: 01/17/2014 FINDINGS: Mild interstitial pulmonary edema. Heart is mildly enlarged in size. No displaced fractures identifie d. IMPRESSION: Mild CHF is possible.
[2024-05-14 20:25] LABS: Anion Gap 8.3 mEq/L (5.0-15.0); Potassium 4.3 mEq/L (3.5-5.1); Troponin High Sensitivity 3.5 pg/mL (<58.9)
[2024-05-14] MEDS ORDERED: HYDROCODONE/CHLORPHEN 5 ML/OSYR ONE (22:31)
[2024-05-14] MEDS ORDERED: METHYLPREDNISOLONE 125 MG INJ ONE (22:31)
--- NOTE | 2024-05-14 23:19 | ER ---
Nurse's Notes [facility] Name: Nafisa Doyle Age: 53 yrs Sex: Female : 1970 Arrival Date: 05/14/2024 Time: 19:34 Bed 5 Private MD: Diagnosis: Cough;Chest pain on breathing Presentation: 05/14 19:41 Chief complaint: Patient states: burning chest pain with cough for 2 weeks. bm8 19:41 Coronavirus screen: At this time, the client does not indicate any symptoms associated bm8 with coronavirus-19. Ebola Screen: Patient negative for fever greater than or equal to 101.5 degrees Fahrenheit, and additional compatible Ebola Virus Disease symptoms Patient denies exposure to infectious person. Patient denies travel to an Ebola-affected area in the 21 days before illness onset. No symptoms or risks identified at this time. Initial Sepsis Screen: Does the patient meet any 2 criteria? No. Patient's initial sepsis screen is negative. Does the patient have a suspected source of infection? No. Patient's initial sepsis screen is negative. Risk Assessment: Do you want to hurt yourself or someone else? Patient reports no desire to harm self or others. Onset of symptoms was May 02, 2024. 19:41 Method Of Arrival: Wheelchair bm8 19:41 Acuity: DEVANTE 2 bm8 Triage Assessment: 20:00 General: Appears in no apparent distress. comfortable, Behavior is calm, cooperative, bm8 appropriate for age. Pain: Complains of pain in mid-sternal area Pain currently is 10 out of 10 on a pain scale. EENT: No deficits noted. No signs and/or symptoms were reported regarding the EENT system. Neuro: No deficits noted. Level of Consciousness is awake, alert, obeys commands, Oriented to person, place, time, situation, Appropriate for age. Cardiovascular: Reports chest pain, from cough for two weeks Heart tones S1 S2 present Capillary refill < 3 seconds in bilateral fingers Patient's skin is warm and dry. Respiratory: Reports cough that is pain with cough Airway is patent Trachea midline Respiratory effort is even, unlabored, Respiratory pattern is regular, symmetrical, Breath sounds are clear bilaterally. GI: No signs and/or symptoms were reported involving the gastrointestinal system. : Reports burning with urination, urinary frequency. Derm: No signs and/or symptoms reported regarding the dermatologic system. Musculoskeletal: No signs and/or symptoms reported regarding the musculoskeletal system. 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 - Infectious Disease History:: Denies. - Social history:: Smoking status: Patient denies any tobacco usage or history of. Screenin:04 [facility] ED Fall Risk Assessment (Adult) History of falling in the last 3 months, bm8 including since admission No falls in past 3 months (0 pts) Confusion or Disorientation No (0 pts) Intoxicated or Sedated No (0 pts) Impaired Gait No (0 pts) Mobility Assist Device Used No (0 pt) Altered Elimination No (0 pt) Score/Fall Risk Level 0 - 2 = Low Risk Oriented to surroundings, Maintained a safe environment, Educated pt \T\ family on fall prevention, incl call for assistance when getting out of bed, Provided non-skid footwear, Hourly rounding (assess needs \T\ fall precautionary measures) done, Used ambulatory aids as needed (educated on \T\ assisted with), Used gait belt as appropriate. Abuse screen: Denies threats or abuse. Nutritional screening: No deficits noted. Tuberculosis screening: No symptoms or risk factors identified. Assessment: 20:04 Reassessment: see triage assessment. bm8 21:09 Reassessment: Patient appears in no apparent distress at this time. Patient and/or bm8 family updated on plan of care and expected duration. Pain level reassessed. Patient is alert, oriented x 3, equal unlabored respirations, skin warm/dry/pink. Patient states feeling better. Patient states symptoms have improved. Pain: Complains of pain in chest and mid-sternal area Pain does not radiate. Pain currently is 7 out of 10 on a pain scale. Pain began 2 weeks. 22:39 Reassessment: Patient appears in no apparent distress at this time. Patient and/or bm8 family updated on plan of care and expected duration. Pain level reassessed. Patient is alert, oriented x 3, equal unlabored respirations, skin warm/dry/pink. Patient denies pain at this time. Patient states feeling better. Patient states symptoms have improved. 23:36 Reassessment: Patient appears in no apparent distress at this time. Patient and/or bm8 family updated on plan of care and expected duration. Pain level reassessed. Patient is alert, oriented x 3, equal unlabored respirations, skin warm/dry/pink. Patient denies pain at this time. Patient states feeling better. Patient states symptoms have improved. Vital Signs: 19:41 BP 178 / 95; Pulse 86; Resp 20; Temp 99; Pulse Ox 97% ; Weight 149.69 kg; Height 5 ft. bm8 7 in. ; Pain 10/10; 21:09 BP 135 / 74; Pulse 77; Resp 22; Temp 99; Pulse Ox 96% ; Pain 7/10; bm8 22:39 BP 116 / 57; Pulse 77; Resp 23; Temp 98.9; Pulse Ox 96% on R/A; Pain 2/10; bm8 23:36 BP 119 / 64; Pulse 76; Resp 17; Temp 98.9; Pulse Ox 95% ; Pain 0/10; bm8 19:41 Body Mass Index 51.68 (149.69 kg, 170.18 cm) bm8 19:41 Pain Scale: Adult bm8 21:09 Pain Scale: Adult bm8 22:39 Pain Scale: Adult bm8 23:36 Pain Scale: Adult bm8 Darrel Coma Score: 20:04 Eye Response: spontaneous(4). Motor Response: obeys commands(6). Verbal Response: bm8 oriented(5). Total: 15. 21:09 Eye Response: spontaneous(4). Motor Response: obeys commands(6). Verbal Response: bm8 oriented(5). Total: 15. 22:39 Eye Response: spontaneous(4). Motor Response: obeys commands(6). Verbal Response: bm8 oriented(5). Total: 15. 23:36 Eye Response: spontaneous(4). Motor Response: obeys commands(6). Verbal Response: bm8 oriented(5). Total: 15. ED Course: 19:41 Patient arrived in ED. gm2 19:48 Ana Mustafa FNP-C is [facility]. kb 19:48 Ras Chávez MD is Attending Physician. kb 19:57 Davonte Dawson, RN is Primary Nurse. bm8 20:00 Triage completed. bm8 20:00 Arm band placed on left wrist. bm8 20:04 Patient has correct armband on for positive identification. Placed in gown. Bed in low bm8 position. Call light in reach. Side rails up X 1. Adult w/ patient. Client placed on continuous cardiac and pulse oximetry monitoring. NIBP monitoring applied. security monitor on. Pulse ox on. NIBP on. Door closed. Noise minimized. Warm blanket given. Pillow given. Verbal reassurance given. Head of bed elevated. 20:04 No provider procedures requiring assistance completed. Initial lab(s) drawn, by me, bm8 sent to lab. EKG done, by ED staff, reviewed by Ana TEJADA. Inserted saline lock: 20 gauge in right forearm, using aseptic technique. Blood collected. Patient maintains SpO2 saturation greater than 95% on room air. 20:05 XRAY Chest (1 view) In Process Unspecified. EDMS 22:39 Repeat lab(s) drawn. by me, sent to lab. bm8 23:36 Provided Education on: post er care. bm8 23:36 IV discontinued, intact, bleeding controlled, No redness/swelling at site. Pressure bm8 dressing applied. Administered Medications: 19:57 Drug: morphine IVP or IV 4 mg IVP once over 4 mins Route: IVP; Infused Over: 4 mins; bm8 Site: right forearm; 21:10 Follow up: Response: No adverse reaction bm8 19:57 Drug: Ondansetron IVP 4 mg IVP once; over 2 minutes Route: IVP; Site: right forearm; bm8 21:10 Follow up: Response: No adverse reaction bm8 19:57 Drug: Famotidine IVP 20 mg IVP once; dilute with 10 mL 0.9% NaCl; give over 2 minutes bm8 Route: IVP; Site: right forearm; 21:10 Follow up: Response: No adverse reaction bm8 19:57 Drug: NS 0.9% IV 1000 ml IV at 1000 ml once; to be given as a bolus over 60 minutes bm8 Route: IV; Rate: 1000 ml; Site: right forearm; 21:10 Follow up: Response: No adverse reaction; IV Status: Completed infusion; IV Intake: bm8 1000ml 22:40 Drug: MethylPrednisoLONE IVP 125 mg IVP once Route: IVP; Site: right forearm; bm8 23:36 Follow up: Response: No adverse reaction bm8 22:40 Drug: Tussionex Pennkinetic ER PO Suspension 5 ml PO once Route: PO; bm8 23:36 Follow up: Response: No adverse reaction bm8 Medication: 20:04 VIS not applicable for this client. bm8 Intake: 21:10 IV: 1000ml; Total: 1000ml. bm8 Outcome: 23:19 Discharge ordered by . kb 23:36 Discharged to home ambulatory, bm8 23:36 Condition: stable 23:36 Discharge instructions given to patient, Instructed on discharge instructions, follow up and referral plans. no drinking with medication, no driving heavy equipment, medication usage, safety practices, Demonstrated understanding of instructions, follow-up care, medications, Prescriptions given X 2, 23:44 Patient left the ED. bm8 Signatures: Dispatcher [employer] EDAna Quiroz, [employer] TECHNICIAN-Nedra Austin RN RN 1 [place] gm2 Davonte Dawson RN RN bm8
--- NOTE | 2024-05-14 23:19 | EDPHYS ---
Physician Documentation [facility] Name: Nafisa Doyle Age: 53 yrs Sex: Female : 1970 Arrival Date: 05/14/2024 Time: 19:34 Bed 5 Private MD: ED Physician Ras Chávez HPI: 05/14 23:14 This 53 yrs old Female presents to ER via Wheelchair with complaints of Chest Pain. 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 States kb she has had a cough for 3 weeks. 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 States the pain is worse with inspiration, movement and palpation. Denies palpitations. . 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 - Infectious Disease History:: Denies. - Social history:: Smoking status: Patient denies any tobacco usage or history of. ROS: 23:12 Constitutional: As per HPI kb Exam: 23:12 Constitutional: This is a well developed, well nourished patient who is awake, alert, kb and in no acute distress. Head/Face: Normocephalic, atraumatic. ENT: Moist Mucous membranes Cardiovascular: Regular rate Respiratory: Respirations even and unlabored. No increased work of breathing. Talking in full sentences Abdomen/GI: Soft, non-tender. No distention Skin: Warm, dry with normal turgor. Normal color. MS/ Extremity: Pulses equal, no cyanosis. Neurovascular intact. Full, normal range of motion. Neuro: Awake and alert, GCS 15, oriented to person, place, time, and situation. 23:12 Chest/axilla: Inspection: normal, Palpation: tenderness, that is moderate, of the anterior aspect of right upper chest and anterior aspect of left upper chest, that totally reproduces the patient's complaints, 23:21 ECG was reviewed by the Attending Physician. kb Vital Signs: 19:41 BP 178 / 95; Pulse 86; Resp 20; Temp 99; Pulse Ox 97% ; Weight 149.69 kg; Height 5 ft. bm8 7 in. ; Pain 10/10; 21:09 BP 135 / 74; Pulse 77; Resp 22; Temp 99; Pulse Ox 96% ; Pain 7/10; bm8 22:39 BP 116 / 57; Pulse 77; Resp 23; Temp 98.9; Pulse Ox 96% on R/A; Pain 2/10; bm8 23:36 BP 119 / 64; Pulse 76; Resp 17; Temp 98.9; Pulse Ox 95% ; Pain 0/10; bm8 19:41 Body Mass Index 51.68 (149.69 kg, 170.18 cm) bm8 19:41 Pain Scale: Adult bm8 21:09 Pain Scale: Adult bm8 22:39 Pain Scale: Adult bm8 23:36 Pain Scale: Adult bm8 [place] Coma Score: 20:04 Eye Response: spontaneous(4). Motor Response: obeys commands(6). Verbal Response: bm8 oriented(5). Total: 15. 21:09 Eye Response: spontaneous(4). Motor Response: obeys commands(6). Verbal Response: bm8 oriented(5). Total: 15. 22:39 Eye Response: spontaneous(4). Motor Response: obeys commands(6). Verbal Response: bm8 oriented(5). Total: 15. 23:36 Eye Response: spontaneous(4). Motor Response: obeys commands(6). Verbal Response: bm8 oriented(5). Total: 15. MDM: 19:48 Medical Screening Exam initiated kb 23:13 Differential diagnosis: acute mi, arrhythmia, rib fracture, pleurisy. Data reviewed: kb vital signs, nurses notes. Consideration of Admission/Observation Escalation of care including admission/observation considered. admission considered for chest pain, but HEART Score 2, serial troponin wnl, pain worse with palpation and deep inspiration. Historians other than the Patient: Spouse/Significant Other: father. Counseling: I had a detailed discussion with the patient and/or guardian regarding the historical points, exam findings, and any diagnostic results supporting the discharge/admit diagnosis, lab results, radiology results, the need for outpatient follow up, a family practitioner, to return to the emergency department if symptoms worsen or persist or if there are any questions or concerns that arise at home. 05/14 19:46 Order name: Basic Metabolic Panel; Complete Time: 20:34 vc1 05/14 19:46 Order name: CBC with Diff; Complete Time: 20:16 vc1 05/14 19:46 Order name: Troponin HS; Complete Time: 20:34 vc1 05/14 22:34 Order name: Troponin High Sensitivity; Complete Time: 23:12 kb 05/14 19:46 Order name: XRAY Chest (1 view); Complete Time: 20:16 vc1 05/14 19:46 Order name: EKG; Complete Time: 19:46 vc1 05/14 19:46 Order name: Cardiac monitoring; Complete Time: 19:46 vc1 05/14 19:46 Order name: EKG - Nurse/Tech; Complete Time: 19:46 vc1 05/14 19:46 Order name: IV Saline Lock; Complete Time: 19:57 vc1 05/14 19:46 Order name: Labs collected and sent; Complete Time: 19:57 vc1 05/14 19:46 Order name: O2 Per Protocol; Complete Time: 19:46 vc1 05/14 19:46 Order name: O2 Sat Monitoring; Complete Time: 19:46 vc1 EC:21 Rate is 104 beats/min. Rhythm is regular. QRS [place] is Normal. AR interval is normal at kb 148 msec. QRS interval is normal at 132 msec. QT interval is normal at 470 msec. Administered Medications: 19:57 Drug: morphine IVP or IV 4 mg IVP once over 4 mins Route: IVP; Infused Over: 4 mins; bm8 Site: right forearm; 21:10 Follow up: Response: No adverse reaction bm8 19:57 Drug: Ondansetron IVP 4 mg IVP once; over 2 minutes Route: IVP; Site: right forearm; bm8 21:10 Follow up: Response: No adverse reaction bm8 19:57 Drug: Famotidine IVP 20 mg IVP once; dilute with 10 mL 0.9% NaCl; give over 2 minutes bm8 Route: IVP; Site: right forearm; 21:10 Follow up: Response: No adverse reaction bm8 19:57 Drug: NS 0.9% IV 1000 ml IV at 1000 ml once; to be given as a bolus over 60 minutes bm8 Route: IV; Rate: 1000 ml; Site: right forearm; 21:10 Follow up: Response: No adverse reaction; IV Status: Completed infusion; IV Intake: bm8 1000ml 22:40 Drug: MethylPrednisoLONE IVP 125 mg IVP once Route: IVP; Site: right forearm; bm8 23:36 Follow up: Response: No adverse reaction bm8 22:40 Drug: Tussionex Pennkinetic ER PO Suspension 5 ml PO once Route: PO; bm8 23:36 Follow up: Response: No adverse reaction bm8 Disposition Summary: 05/14/24 23:19 Discharge Ordered Notes: Location: Home kb Condition: Stable kb Diagnosis - Cough kb - Chest pain on breathing kb Followup: kb - With: Private Physician - When: 2 - 3 days - Reason: Recheck today's complaints, Continuance of care, Re-evaluation by your physician Followup: kb - With: Emergency Department - When: As needed - Reason: Worsening of condition Discharge Instructions: - Discharge Summary Sheet kb - Nonspecific Chest Pain, Adult kb - Pleurisy, [id number] kb Forms: - Medication Reconciliation Form kb - Antibiotic Education kb - Prescription Opioid Use kb - Patient Portal Instructions kb - Leadership Thank You Letter kb - Work release form bm8 Prescriptions: - Prednisone 20 mg Oral Tablet - take 1 tablet ORAL route once daily for 5 days; 5 tablet; Refills: 0, Product kb Selection Permitted - Tessalon Perles 100 mg Oral Capsule - take 1 capsule ORAL route every 8 hours As needed; 15 capsule; Refills: 0, kb Product Selection Permitted Signatures: Dispatcher [employer] Ana David FNP-C FNP-Nedra Austin, RN RN vc1 Davonte Dawson, RN RN bm8 Corrections: (The following items were deleted from the chart) 19:46 19:46 Chest Single View+[email or web address] ordered. EDMS EDMS
[2024-05-15 04:20] VITALS: TEMP 98.9
[2024-05-15 04:21] VITALS: BP 119/64; O2SAT 95
== END 2024-05-14 23:44 | disposition home or self-care (01) ==
LOC: ER 19:34
DX: R05.9 Cough, unspecified (principal); R07.1 Chest pain on breathing
CPT/HCPCS: 96361; 85025; 80048; 36415; 84484 ×2; 71045; 96375; 96374; 99285; J2919; J2405; J7030